=== PATIENT | female | born 1945 | race Caucasian/White ===

== ENCOUNTER → 2021-04-16 | Outpatient (CLI) | payer MEDICARE, OTHER | END | disposition home or self-care (01) | LOC: RADFLMAIN 10:44 → EEVIPCON 11:00 | PROVIDERS: ATTEND Family Medicine | DX: Z53.9 Procedure and treatment not carried out, unspecified reason (principal) ==

== ENCOUNTER 2021-04-17 10:19 | Inpatient (IN) | payer MEDICARE, OTHER ==
--- NOTE | 2021-04-17 11:14 | ED ---
General Adult HPI - General Chief complaint: Altered Mental Status Stated complaint: GI Bleed/Lethargic Time Seen by Provider: 04/17/21 10:39 Source: RN notes reviewed, Caregiver Mode of arrival: wheelchair Limitations: altered mental status, physical limitation - History of Present Illness Initial comments: Patient is a pleasant 76-year-old female presenting to the emergency department with decision support manager for drowsiness. Patient has developmental delay and functions at the age of 6-12 months. Patient provides no history. History from decision support manager. Symptoms have progressed with the past couple of weeks. Patient has had congestion and placed on antibiotics from primary care physician. Patient recently went to a different emergency Department with question of GI hemorrhage however was discharged. - Related Data Home Medications Medication Instructions Recorded Confirmed Albuterol Nebulized [Ventolin 2.5 mg INHALATION RT-Q6H PRN 04/17/21 04/17/21 Nebulized] Albuterol Sulfate [Ventolin HFA] 2 puff INHALATION RT-Q6H PRN 04/17/21 04/17/21 Cholecalciferol [Vitamin D3 (25 50 mcg PO DAILY 04/17/21 04/17/21 Mcg = 1000 Iu)] Divalproex Sodium [Depakote] 500 mg PO BID 04/17/21 04/17/21 Fluticasone Nasal [place] [Flonase 1 spr EA NOSTRIL DAILY@1400 04/17/21 04/17/21 Nasal [place]] Levothyroxine Sodium [Synthroid] 100 mcg PO DAILY 04/17/21 04/17/21 Loperamide [Imodium] 2 mg PO QID PRN 04/17/21 04/17/21 Melatonin 6 mg PO DAILY@1900 04/17/21 04/17/21 Siltussin Sa 100mg/5ml 200 - 400 mg PO Q4H PRN MDD 6 DOSES 04/17/21 04/17/21 clonazePAM [KlonoPIN] 0.5 mg PO BID 04/17/21 04/17/21 traZODone HCL 150 mg PO HS 04/17/21 04/17/21 Allergies Allergy/AdvReac Type Severity Reaction Status Date / Time donepezil Allergy Unknown Verified 04/17/21 11:35 Penicillins Allergy Rash/Hives Verified 04/17/21 11:35 Review of Systems ROS Statement: Those systems with pertinent positive or pertinent negative responses have been documented in the HPI. ROS Other: All systems not noted in ROS Statement are negative. Limitations: ROS unobtainable due to patients medical condition Constitutional: Denies: fever Respiratory: Denies: cough Gastrointestinal: Denies: vomiting Past Medical History Past Medical History: Dementia, Memory Impairment History of Any Multi-Drug Resistant Organisms: None Reported Past Surgical History: No Surgical Hx Reported Past Psychological History: No Psychological Hx Reported Smoking Status: Former smoker Past Alcohol Use History: None Reported Past Drug Use History: None Reported General Exam Limitations: altered mental status, physical limitation General appearance: alert, in no apparent distress Head exam: Present: atraumatic Eye exam: Present: normal appearance Neck exam: Present: normal inspection. Absent: tenderness, meningismus Respiratory exam: Present: normal lung sounds bilaterally Cardiovascular Exam: Present: regular rate, normal rhythm GI/Abdominal exam: Present: soft. Absent: tenderness Extremities exam: Present: pedal edema (Trace bilateral). Absent: calf tenderness Neurological exam: Present: alert, altered, other (Nonverbal. Does not follow commands.) Psychiatric exam: Present: normal affect, normal mood Skin exam: Present: normal color Course Vital Signs 04/17/21 10:23 Temperature 97.0 F L Pulse Rate 61 Respiratory 18 Rate Blood Pressure 179/100 O2 Sat by Pulse 97 Oximetry EKG Findings - EKG Comments: EKG Findings:: Size pericardial 356. For screening AV block with MO of 206. QRS 144. QT 502. QTC 44. Left axis. Right bundle branch block. No acute ST change. Medical Decision Making - Medical Decision Making Patient reevaluated. Case discussed with Dr. Muñoz, who will admit his patient with consults for Dr. Andres, pulmonary, and cardiology. - Lab Data Result diagrams: 04/17/21 11:37 04/17/21 11:37 Lab Results 04/17/21 04/17/21 04/17/21 Range/Units 11:37 11:37 11:37 WBC 2.9 L (3.8-10.6) k/uL RBC 3.84 (3.80-5.40) m/uL Hgb 12.5 (11.4-16.0) gm/dL Hct 37.7 (34.0-46.0) % MCV 98.1 (80.0-100.0) fL MCH 32.5 (25.0-35.0) pg MCHC 33.1 (31.0-37.0) g/dL RDW 15.5 (11.5-15.5) % Plt Count 110 L (150-450) k/uL MPV 12.2 Neutrophils % (Manual) 60 % Lymphocytes % (Manual) 36 % Monocytes % (Manual) 4 % Eosinophils % (Manual) 1 % Neutrophils # (Manual) 1.74 (1.3-7.7) k/uL Lymphocytes # (Manual) 1.04 (1.0-4.8) k/uL Monocytes # (Manual) 0.12 (0-1.0) k/uL Eosinophils # (Manual) 0.03 (0-0.7) k/uL Nucleated RBCs 2 H (0-0) /100 WBC Manual Slide Review Performed Large Platelets Present Macrocytosis Slight PT 9.6 (9.0-12.0) sec INR 0.9 (<1.2) APTT 23.3 (22.0-30.0) sec Sodium 137 (137-145) mmol/L Potassium 5.3 H (3.5-5.1) mmol/L Chloride 92 L (98-107) mmol/L Carbon Dioxide 38 H (22-30) mmol/L Anion Gap 7 mmol/L BUN 22 H (7-17) mg/dL Creatinine 0.59 (0.52-1.04) mg/dL Est GFR (CKD-EPI)AfAm >90 (>60 ml/min/1.73 sqM) Est GFR (CKD-EPI)NonAf 89 (>60 ml/min/1.73 sqM) Glucose 104 H (74-99) mg/dL POC Glucose (mg/dL) (75-99) mg/dL POC Glu Remote Coders ID Calcium 9.4 (8.4-10.2) mg/dL Total Bilirubin 0.1 L (0.2-1.3) mg/dL AST 34 (14-36) U/L ALT 38 H (4-34) U/L Alkaline Phosphatase 107 (38-126) U/L Troponin I (0.000-0.034) ng/mL NT-Pro-B Natriuret Pep pg/mL Total Protein 7.2 (6.3-8.2) g/dL Albumin 3.9 (3.5-5.0) g/dL TSH 2.300 (0.465-4.680) mIU/L Free T4 1.06 (0.78-2.19) ng/dL Free T3 pg/mL 3.3 (2.8-5.3) pg/ml Urine Color Urine Appearance (Clear) Urine pH (5.0-8.0) Ur Specific [place] (1.001-1.035) Urine Protein (Negative) Urine Glucose (UA) (Negative) Urine Ketones (Negative) Urine Blood (Negative) Urine Nitrite (Negative) Urine Bilirubin (Negative) Urine Urobilinogen (<2.0) mg/dL Ur Leukocyte Esterase (Negative) Urine RBC (0-5) /hpf Urine WBC (0-5) /hpf Ur Squamous Epith Cells (0-4) /hpf Urine Mucus (None) /hpf Stool Occult Blood (Negative) Urine Opiates Screen (NotDetected) Ur Oxycodone Screen (NotDetected) Urine Methadone Screen (NotDetected) Ur Propoxyphene Screen (NotDetected) Ur Barbiturates Screen (NotDetected) Valproic Acid 56.9 ug/mL U Tricyclic Antidepress (NotDetected) Ur Phencyclidine Scrn (NotDetected) Ur Amphetamines Screen (NotDetected) U Methamphetamines Scrn (NotDetected) U Benzodiazepines Scrn (NotDetected) Urine Cocaine Screen (NotDetected) U Marijuana (THC) Screen (NotDetected) 04/17/21 04/17/21 04/17/21 Range/Units 11:37 11:37 11:52 WBC (3.8-10.6) k/uL RBC (3.80-5.40) m/uL Hgb (11.4-16.0) gm/dL Hct (34.0-46.0) % MCV (80.0-100.0) fL MCH (25.0-35.0) pg MCHC (31.0-37.0) g/dL RDW (11.5-15.5) % Plt Count (150-450) k/uL MPV Neutrophils % (Manual) % Lymphocytes % (Manual) % Monocytes % (Manual) % Eosinophils % (Manual) % Neutrophils # (Manual) (1.3-7.7) k/uL Lymphocytes # (Manual) (1.0-4.8) k/uL Monocytes # (Manual) (0-1.0) k/uL Eosinophils # (Manual) (0-0.7) k/uL Nucleated RBCs (0-0) /100 WBC Manual Slide Review Large Platelets Macrocytosis PT (9.0-12.0) sec INR (<1.2) APTT (22.0-30.0) sec Sodium (137-145) mmol/L Potassium (3.5-5.1) mmol/L Chloride (98-107) mmol/L Carbon Dioxide (22-30) mmol/L Anion Gap mmol/L BUN (7-17) mg/dL Creatinine (0.52-1.04) mg/dL Est GFR (CKD-EPI)AfAm (>60 ml/min/1.73 sqM) Est GFR (CKD-EPI)NonAf (>60 ml/min/1.73 sqM) Glucose (74-99) mg/dL POC Glucose (mg/dL) 95 (75-99) mg/dL POC Glu Remote Coders ID Oliva Campoverde Calcium (8.4-10.2) mg/dL Total Bilirubin (0.2-1.3) mg/dL AST (14-36) U/L ALT (4-34) U/L Alkaline Phosphatase (38-126) U/L Troponin I 0.059 H* (0.000-0.034) ng/mL NT-Pro-B Natriuret Pep 483 pg/mL Total Protein (6.3-8.2) g/dL Albumin (3.5-5.0) g/dL TSH (0.465-4.680) mIU/L Free T4 (0.78-2.19) ng/dL Free T3 pg/mL (2.8-5.3) pg/ml Urine Color Urine Appearance (Clear) Urine pH (5.0-8.0) Ur Specific [place] (1.001-1.035) Urine Protein (Negative) Urine Glucose (UA) (Negative) Urine Ketones (Negative) Urine Blood (Negative) Urine Nitrite (Negative) Urine Bilirubin (Negative) Urine Urobilinogen (<2.0) mg/dL Ur Leukocyte Esterase (Negative) Urine RBC (0-5) /hpf Urine WBC (0-5) /hpf Ur Squamous Epith Cells (0-4) /hpf Urine Mucus (None) /hpf Stool Occult Blood (Negative) Urine Opiates Screen (NotDetected) Ur Oxycodone Screen (NotDetected) Urine Methadone Screen (NotDetected) Ur Propoxyphene Screen (NotDetected) Ur Barbiturates Screen (NotDetected) Valproic Acid ug/mL U Tricyclic Antidepress (NotDetected) Ur Phencyclidine Scrn (NotDetected) Ur Amphetamines Screen (NotDetected) U Methamphetamines Scrn (NotDetected) U Benzodiazepines Scrn (NotDetected) Urine Cocaine Screen (NotDetected) U Marijuana (THC) Screen (NotDetected) 04/17/21 04/17/21 Range/Units 12:26 12:26 WBC (3.8-10.6) k/uL RBC (3.80-5.40) m/uL Hgb (11.4-16.0) gm/dL Hct (34.0-46.0) % MCV (80.0-100.0) fL MCH (25.0-35.0) pg MCHC (31.0-37.0) g/dL RDW (11.5-15.5) % Plt Count (150-450) k/uL MPV Neutrophils % (Manual) % Lymphocytes % (Manual) % Monocytes % (Manual) % Eosinophils % (Manual) % Neutrophils # (Manual) (1.3-7.7) k/uL Lymphocytes # (Manual) (1.0-4.8) k/uL Monocytes # (Manual) (0-1.0) k/uL Eosinophils # (Manual) (0-0.7) k/uL Nucleated RBCs (0-0) /100 WBC Manual Slide Review Large Platelets Macrocytosis PT (9.0-12.0) sec INR (<1.2) APTT (22.0-30.0) sec Sodium (137-145) mmol/L Potassium (3.5-5.1) mmol/L Chloride (98-107) mmol/L Carbon Dioxide (22-30) mmol/L Anion Gap mmol/L BUN (7-17) mg/dL Creatinine (0.52-1.04) mg/dL Est GFR (CKD-EPI)AfAm (>60 ml/min/1.73 sqM) Est GFR (CKD-EPI)NonAf (>60 ml/min/1.73 sqM) Glucose (74-99) mg/dL POC Glucose (mg/dL) (75-99) mg/dL POC Glu Remote Coders ID Calcium (8.4-10.2) mg/dL Total Bilirubin (0.2-1.3) mg/dL AST (14-36) U/L ALT (4-34) U/L Alkaline Phosphatase (38-126) U/L Troponin I (0.000-0.034) ng/mL NT-Pro-B Natriuret Pep pg/mL Total Protein (6.3-8.2) g/dL Albumin (3.5-5.0) g/dL TSH (0.465-4.680) mIU/L Free T4 (0.78-2.19) ng/dL Free T3 pg/mL (2.8-5.3) pg/ml Urine Color Yellow Urine Appearance Clear (Clear) Urine pH 6.0 (5.0-8.0) Ur Specific [place] 1.014 (1.001-1.035) Urine Protein Negative (Negative) Urine Glucose (UA) Negative (Negative) Urine Ketones Negative (Negative) Urine Blood Trace H (Negative) Urine Nitrite Negative (Negative) Urine Bilirubin Negative (Negative) Urine Urobilinogen <2.0 (<2.0) mg/dL Ur Leukocyte Esterase Negative (Negative) Urine RBC 4 (0-5) /hpf Urine WBC 2 (0-5) /hpf Ur Squamous Epith Cells <1 (0-4) /hpf Urine Mucus Rare H (None) /hpf Stool Occult Blood Negative (Negative) Urine Opiates Screen Not Detected (NotDetected) Ur Oxycodone Screen Not Detected (NotDetected) Urine Methadone Screen Not Detected (NotDetected) Ur Propoxyphene Screen Not Detected (NotDetected) Ur Barbiturates Screen Not Detected (NotDetected) Valproic Acid ug/mL U Tricyclic Antidepress Not Detected (NotDetected) Ur Phencyclidine Scrn Not Detected (NotDetected) Ur Amphetamines Screen Not Detected (NotDetected) U Methamphetamines Scrn Not Detected (NotDetected) U Benzodiazepines Scrn Not Detected (NotDetected) Urine Cocaine Screen Not Detected (NotDetected) U Marijuana (THC) Screen Not Detected (NotDetected) - Radiology Data Radiology results: report reviewed (Computed tomography scan shows chronic changes, correlate for normal pressure hydrocephalus), image reviewed (Chest x- ray shows suggestion of right infrahilar infiltrate.) Disposition Clinical Impression: Pneumonia Disposition: ADMITTED IP TO THIS HOSP Is patient prescribed a controlled substance at d/c from ED?: No Referrals: Patricio Muñoz MD [Primary Care Provider] - 1-2 days Decision Time: 13:42
[2021-04-17 11:54] LABS: Glucose,Whole Blood 95 mg/dL (75-99)
[2021-04-17 12:01] LABS: HCT 37.7 % (34.0-46.0); HGB 12.5 gm/dL (11.4-16.0); MCH 32.5 pg (25.0-35.0); MCHC 33.1 g/dL (31.0-37.0); MCV 98.1 fL (80.0-100.0); Macrocytosis Slight; Mean Platelet Volume 12.2; Platelet Count 110 k/uL (150-450); RBC 3.84 m/uL (3.80-5.40); RDW 15.5 % (11.5-15.5)
[2021-04-17 12:11] LABS: ALT 38 U/L (4-34); AST 34 U/L (14-36); African American GFR (CKD) >90 (>60 ml/min/1.73 sqM); Albumin 3.9 g/dL (3.5-5.0); Alkaline Phosphatase 107 U/L (38-126); Anion Gap 7 mmol/L; Blood Urea Nitrogen 22 mg/dL (7-17); Calcium 9.4 mg/dL (8.4-10.2); Carbon Dioxide 38 mmol/L (22-30); Chloride 92 mmol/L (98-107); Glucose 104 mg/dL (74-99); Non-African American GFR(CKD) 89 (>60 ml/min/1.73 sqM); Potassium 5.3 mmol/L (3.5-5.1); Sodium 137 mmol/L (137-145); Total Bilirubin 0.1 mg/dL (0.2-1.3); Total Protein 7.2 g/dL (6.3-8.2)
[2021-04-17 12:16] LABS: Valproic Acid (Depakene) 56.9 ug/mL
[2021-04-17 12:23] LABS: INR 0.9 (<1.2); Partial Thromboplastin Time 23.3 sec (22.0-30.0); Prothrombin Time 9.6 sec (9.0-12.0)
[2021-04-17 12:27] LABS: T4, Free (Free Thyroxine) 1.06 ng/dL (0.78-2.19)
--- NOTE | 2021-04-17 12:32 | CT ---
EXAMINATION TYPE: CT brain wo con DATE OF EXAM: 04/17/2021 COMPARISON: None INDICATION: AMS DLP: 1113.4 mGycm, Automated exposure control for dose reduction was used. CONTRAST: None CT of the brain is performed utilizing 3 mm thick sections through the posterior fossa and 3 mm thick sections through the remaining calvarium. Study is performed within 24 hours of arrival to the hosp ital. No abnormal hyperdensity is present to suggest an acute intracranial hemorrhage. No mass lesion is evident. No acute infarcts are evident. Minimal periventricular white matter hypodensity is present, likely on the basis of chronic white matter ischemic change. Ventricles are prominent for the patient age. Some mild prominence of the temporal horns may be prese nt. Consider normal pressure hydrocephalus. Sulci are less prominent lobulation to the ventricles.. Mastoid air cells appear clear. Some scattered mucosal thickening in ethmoid air cells. Remaining par anasal sinuses are clear. Right septal deviation is noted. IMPRESSIONS: 1. Clinical consideration for normal pressure hydrocephalus is recommended. 2. Mild chronic appearing periventricular white matter ischemic type changes.
[2021-04-17 13:00] LABS: Eosinophils # (M) 0.03 k/uL (0-0.7); Lymphocytes # (M) 1.04 k/uL (1.0-4.8); Monocytes # (M) 0.12 k/uL (0-1.0); Neutrophils # (M) 1.74 k/uL (1.3-7.7); Neutrophils % (M) 60 %; Nucleated Red Blood Cells 2 /100 WBC (0-0); Total Cells Counted 200; WBC 2.9 k/uL (3.8-10.6)
[2021-04-17 13:04] LABS: Large Platelets Present
--- NOTE | 2021-04-17 13:13 | XR ---
EXAMINATION TYPE: XR chest 1V portable DATE OF EXAM: 04/17/2021 COMPARISON: 01/27/2013 INDICATION: Altered mental status TECHNIQUE: Single frontal view of the chest is obtained. FINDINGS: The heart size is enlarged. The pulmonary vasculature is normal. Mild right infrahilar infiltrate may be present. Lungs otherwise appear clear. There may be some foca l eventration of the right diaphragm. IMPRESSION: 1. Suggestion of a right infrahilar infiltrate. Correlate for atelectasis. 2. Mild cardiomegaly
[2021-04-17 13:18] LABS: Appearance,Urine Clear (Clear); Bilirubin,Urine Negative (Negative); Blood,Urine Trace (Negative); Color,Urine Yellow; Glucose,Urine (UA) Negative (Negative); Ketones,Urine Negative (Negative); Leukocyte Esterase,Urine Negative (Negative); Mucus,Urine Rare /hpf; Nitrite,Urine Negative (Negative); Protein,Urine Negative (Negative); RBC,Urine 4 /hpf (0-5); Specific Gravity,Urine 1.014 (1.001-1.035); Squamous Epithelial Cell,Urine <1 /hpf (0-4); Urobilinogen,Urine <2.0 mg/dL (<2.0); WBC,Urine 2 /hpf (0-5)
[2021-04-17 13:25] LABS: Amphetamine Screen,Urine Not Detected (NotDetected); Barbiturate Screen,Urine Not Detected (NotDetected); Benzodiazepines Screen,Urine Not Detected (NotDetected); Cocaine Screen,Urine Not Detected (NotDetected); Methadone Screen, Urine Not Detected (NotDetected); Opiate Screen,Urine Not Detected (NotDetected); Oxycodone Screen, Urine Not Detected (NotDetected); Phencyclidine Screen,Urine Not Detected (NotDetected); Tricyclic Antidepressant,Urine Not Detected (NotDetected); Urn Cannabinoid Scrn Not Detected (NotDetected)
--- NOTE | 2021-04-17 13:26 | P.GSHP ---
History of Present Illness H&P Date: 04/17/21 Patient seen and evaluated. Initial trauma 1 activation for suspicion of depressed skull fracture and ultimately mental status. Computed tomography scan negative for acute skull fracture. Patient came in hypertensive. No hypotension. Findings of normal pressure hydrocephalus. 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 Recommend transfer to facility with neurosurgery back up. Case discussed with Dr. Dominguez. Case downgraded to level II without presence of depressed skull fracture or hypotension Past Medical History Past Medical History: Dementia, Memory Impairment History of Any Multi-Drug Resistant Organisms: None Reported Past Surgical History: No Surgical Hx Reported Past Psychological History: No Psychological Hx Reported Smoking Status: Former smoker Past Alcohol Use History: None Reported Past Drug Use History: None Reported Medications and Allergies Home Medications Medication Instructions Recorded Confirmed Type Albuterol Nebulized [Ventolin 2.5 mg INHALATION RT-Q6H PRN 04/17/21 04/17/21 History Nebulized] Albuterol Sulfate [Ventolin HFA] 2 puff INHALATION RT-Q6H PRN 04/17/21 04/17/21 History Cholecalciferol [Vitamin D3 (25 50 mcg PO DAILY 04/17/21 04/17/21 History Mcg = 1000 Iu)] Divalproex Sodium [Depakote] 500 mg PO BID 04/17/21 04/17/21 History Fluticasone Nasal [place] [Flonase 1 spr EA NOSTRIL DAILY@1400 04/17/21 04/17/21 H istory Nasal [place]] Levothyroxine Sodium [Synthroid] 100 mcg PO DAILY 04/17/21 04/17/21 History Loperamide [Imodium] 2 mg PO QID PRN 04/17/21 04/17/21 History Melatonin 6 mg PO DAILY@1900 04/17/21 04/17/21 History Siltussin Sa 100mg/5ml 200 - 400 mg PO Q4H PRN MDD 6 DOSES 04/17/21 04/17/21 History clonazePAM [KlonoPIN] 0.5 mg PO BID 04/17/21 04/17/21 History traZODone HCL 150 mg PO HS 04/17/21 04/17/21 History Allergies Allergy/AdvReac Type Severity Reaction Status Date / Time donepezil Allergy Unknown Verified 04/17/21 11:35 Penicillins Allergy Rash/Hives Verified 04/17/21 11:35 Surgical - Exam Vital Signs Temp Pulse Resp BP Pulse Ox 97.0 F L 61 18 179/100 97 04/17/21 10:23 04/17/21 10:23 04/17/21 10:23 04/17/21 10:23 04/17/21 10:23 Results - Labs 04/17/21 11:37 04/17/21 11:37 Abnormal Lab Results - Last 24 Hours (Table) 04/17/21 04/17/21 04/17/21 Range/Units 11:37 11:37 11:37 WBC 2.9 L (3.8-10.6) k/uL Plt Count 110 L (150-450) k/uL Nucleated RBCs 2 H (0-0) /100 WBC Potassium 5.3 H (3.5-5.1) mmol/L Chloride 92 L (98-107) mmol/L Carbon Dioxide 38 H (22-30) mmol/L BUN 22 H (7-17) mg/dL Glucose 104 H (74-99) mg/dL Total Bilirubin 0.1 L (0.2-1.3) mg/dL ALT 38 H (4-34) U/L Troponin I 0.059 H* (0.000-0.034) ng/mL Urine Blood (Negative) Urine Mucus (None) /hpf 04/17/21 Range/Units 12:26 WBC (3.8-10.6) k/uL Plt Count (150-450) k/uL Nucleated RBCs (0-0) /100 WBC Potassium (3.5-5.1) mmol/L Chloride (98-107) mmol/L Carbon Dioxide (22-30) mmol/L BUN (7-17) mg/dL Glucose (74-99) mg/dL Total Bilirubin (0.2-1.3) mg/dL ALT (4-34) U/L Troponin I (0.000-0.034) ng/mL Urine Blood Trace H (Negative) Urine Mucus Rare H (None) /hpf Diabetes panel 04/17/21 Range/Units 11:37 Sodium 137 (137-145) mmol/L Potassium 5.3 H (3.5-5.1) mmol/L Chloride 92 L (98-107) mmol/L Carbon Dioxide 38 H (22-30) mmol/L BUN 22 H (7-17) mg/dL Creatinine 0.59 (0.52-1.04) mg/dL Glucose 104 H (74-99) mg/dL Calcium 9.4 (8.4-10.2) mg/dL AST 34 (14-36) U/L ALT 38 H (4-34) U/L Alkaline Phosphatase 107 (38-126) U/L Total Protein 7.2 (6.3-8.2) g/dL Albumin 3.9 (3.5-5.0) g/dL Thyroid panel 04/17/21 Range/Units 11:37 TSH 2.300 (0.465-4.680) mIU/L Calcium panel 04/17/21 Range/Units 11:37 Calcium 9.4 (8.4-10.2) mg/dL Albumin 3.9 (3.5-5.0) g/dL Pituitary panel 04/17/21 Range/Units 11:37 Sodium 137 (137-145) mmol/L Potassium 5.3 H (3.5-5.1) mmol/L Chloride 92 L (98-107) mmol/L Carbon Dioxide 38 H (22-30) mmol/L BUN 22 H (7-17) mg/dL Creatinine 0.59 (0.52-1.04) mg/dL Glucose 104 H (74-99) mg/dL Calcium 9.4 (8.4-10.2) mg/dL TSH 2.300 (0.465-4.680) mIU/L Adrenal panel 04/17/21 Range/Units 11:37 Sodium 137 (137-145) mmol/L Potassium 5.3 H (3.5-5.1) mmol/L Chloride 92 L (98-107) mmol/L Carbon Dioxide 38 H (22-30) mmol/L BUN 22 H (7-17) mg/dL Creatinine 0.59 (0.52-1.04) mg/dL Glucose 104 H (74-99) mg/dL Calcium 9.4 (8.4-10.2) mg/dL Total Bilirubin 0.1 L (0.2-1.3) mg/dL AST 34 (14-36) U/L ALT 38 H (4-34) U/L Alkaline Phosphatase 107 (38-126) U/L Total Protein 7.2 (6.3-8.2) g/dL Albumin 3.9 (3.5-5.0) g/dL
[2021-04-17] MEDS ORDERED: PNEUMONIA PROTOCOL UTILIZED 1 EACH MISC PO PRN (13:43)
[2021-04-17] MEDS ORDERED: LEVOFLOXACIN 750MG-D5W PMX 750 MG in DEXTROSE/WATER 1 150ML.BAG IVPB STA (13:43)
[2021-04-17] MEDS ORDERED: NALOXONE 0.4 MG/ML 1 ML VIAL IV PRN (13:45)
--- NOTE | 2021-04-17 14:55 | P.CRDCN ---
History of Present Illness History of present illness: HISTORY OF PRESENTING ILLNESS This is a pleasant 76-year-old female past medical history significant for developmental delay, nonverbal. Unknown medical history. Patient is unable to give a medical history. Patient is non-verbal. Called caregiver, Shima at [phone], no answer at this time. Unknown if patient sees a cumulative effects analyst. We have been asked to see in consultation for cardiac evaluation. Patient is seen and examined in the emergency department. She is awake, nonverbal. Unable to answer questions appropriately. Per nursing, patient was brought to the hospital for drowsiness, failure to thrive. EKG reveals sinus bradycardia, heart rate 56, right bundle-branch block, nonspecific STT wave abnormalities.Telemetry at bedside indicate sinus mechanism HR 50s. Brain CT revealed mild chronic appearing periventricular white matter ischemic type changes.Chest xray mild right infrahilar infiltrate may be present. Lungs otherwise appear clear. Mild cardiomegaly. Laboratory reviewed, WBC 2.9, hemoglobin 12.5, platelets 110, sodium 137, potassium 5.3, BUN 22, serum creatinine 0.5, troponin 0.05, proBNP 483, TSH within normal limits, urine toxicology negative. Current home medications include trazodone, melatonin, Synthroid, Depakote, Klonopin. REVIEW OF SYSTEMS At the time of my exam: Unable to do accurate review of systems due to patient's current mental status. PHYSICAL EXAMINATION Blood pressure 179/100 heart rate 61 afebrile and maintaining oxygen saturation 97% on room air CONSTITUTIONAL: No apparent distress. HEENT: Head is normocephalic. Sclerae anicteric. Mucous membranes of the mouth are moist. No JVD. CHEST EXAMINATION: Lungs are clear to auscultation. HEART EXAMINATION: Regular rate and rhythm. S1, S2 heard. ABDOMEN: Soft, nontender. Positive bowel sounds. EXTREMITIES: 2+ peripheral pulses, trace bilateral lower extremity edema. NEUROLOGIC EXAMINATION: Patient is awake, nonverbal ASSESSMENT Elevated troponin, mildly elevated at 0.05. No EKG changes indicative of ischemia. Patient is not able to describe any symptoms History of developmental delay, nonverbal Drowsiness PLAN We will obtain an echocardiogram. Recommend treating the patient medically at this time. Further recommendations based on clinical course Nurse Practitioner note has been reviewed, I agree with a documented findings and plan of care. Patient was seen and examined. Past Medical History Past Medical History: Dementia, Memory Impairment History of Any Multi-Drug Resistant Organisms: None Reported Past Surgical History: No Surgical Hx Reported Past Psychological History: No Psychological Hx Reported Smoking Status: Former smoker Past Alcohol Use History: None Reported Past Drug Use History: None Reported Medications and Allergies Home Medications Medication Instructions Recorded Confirmed Type Albuterol Nebulized [Ventolin 2.5 mg INHALATION RT-Q6H PRN 04/17/21 04/17/21 History Nebulized] Albuterol Sulfate [Ventolin HFA] 2 puff INHALATION RT-Q6H PRN 04/17/21 04/17/21 History Cholecalciferol [Vitamin D3 (25 50 mcg PO DAILY 04/17/21 04/17/21 History Mcg = 1000 Iu)] Divalproex Sodium [Depakote] 500 mg PO BID 04/17/21 04/17/21 History Fluticasone Nasal [place] [Flonase 1 spr EA NOSTRIL DAILY@1400 04/17/21 04/17/21 History Nasal [place]] Levothyroxine Sodium [Synthroid] 100 mcg PO DAILY 04/17/21 04/17/21 History Loperamide [Imodium] 2 mg PO QID PRN 04/17/21 04/17/21 History Melatonin 6 mg PO DAILY@1900 04/17/21 04/17/21 History Siltussin Sa 100mg/5ml 200 - 400 mg PO Q4H PRN MDD 6 DOSES 04/17/21 04/17/21 History clonazePAM [KlonoPIN] 0.5 mg PO BID 04/17/21 04/17/21 History traZODone HCL 150 mg PO HS 04/17/21 04/17/21 History Allergies Allergy/AdvReac Type Severity Reaction Status Date / Time donepezil Allergy Unknown Verified 04/17/21 11:35 Penicillins Allergy Rash/Hives Verified 04/17/21 11:35 Physical Exam Vitals: Vital Signs Temp Pulse Resp BP Pulse Ox 04/17/21 10:23 97.0 F L 61 18 179/100 97 Intake and Output 04/16/21 04/17/21 04/17/21 22:59 06:59 14:59 Other: Weight 70.307 kg Results 04/17/21 11:37 04/17/21 11:37 Cardiac Enzymes 04/17/21 04/17/21 Range/Units 11:37 11:37 AST 34 (14-36) U/L Troponin I 0.059 H* (0.000-0.034) ng/mL Coagulation 04/17/21 Range/Units 11:37 PT 9.6 (9.0-12.0) sec APTT 23.3 (22.0-30.0) sec CBC 04/17/21 Range/Units 11:37 WBC 2.9 L (3.8-10.6) k/uL RBC 3.84 (3.80-5.40) m/uL Hgb 12.5 (11.4-16.0) gm/dL Hct 37.7 (34.0-46.0) % Plt Count 110 L (150-450) k/uL Comprehensive Metabolic Panel 04/17/21 Range/Units 11:37 Sodium 137 (137-145) mmol/L Potassium 5.3 H (3.5-5.1) mmol/L Chloride 92 L (98-107) mmol/L Carbon Dioxide 38 H (22-30) mmol/L BUN 22 H (7-17) mg/dL Creatinine 0.59 (0.52-1.04) mg/dL Glucose 104 H (74-99) mg/dL Calcium 9.4 (8.4-10.2) mg/dL AST 34 (14-36) U/L ALT 38 H (4-34) U/L Alkaline Phosphatase 107 (38-126) U/L Total Protein 7.2 (6.3-8.2) g/dL Albumin 3.9 (3.5-5.0) g/dL Current Medications Generic Name Dose Route Start Last Admin Trade Name Freq PRN Reason Stop Dose Admin Sodium Chloride 1,000 mls @ 100 mls/hr 04/17/21 13:45 Saline 0.9% IV .Q10H UNIQUE Levofloxacin 750 mg/ IV 150 mls @ 100 mls/hr 04/17/21 13:43 Solution IVPB 04/17/21 15:12 ONCE STA Levofloxacin 750 mg 04/18/21 12:00 Levofloxacin 750 Mg Tab PO 04/21/21 12:01 DAILY@1200 UNIQUE Miscellaneous Information 1 each 04/17/21 13:43 Pneumonia Protocol Utilized 1 Each Misc PO ONCE PRN Per Protocol Naloxone HCl 0.2 mg 04/17/21 13:45 Naloxone 0.4 Mg/Ml 1 Ml Vial IV Q2M PRN Opioid Reversal Intake and Output 04/16/21 04/17/21 04/17/21 22:59 06:59 14:59 Other: Weight 70.307 kg Patient Weight 04/18/21 06:59 Weight 70.307 kg 04/17/21 11:37 04/17/21 11:37
[2021-04-17] MEDS: SODIUM CHLORIDE 0.9% 1,000 ML IV SCH (15:16)
--- NOTE | 2021-04-17 17:10 | ECHOF ---
Referral Reason:LV function MEASUREMENTS -------- HEIGHT: 160.0 cm WEIGHT: 70.3 kg BP: 179/100 RVIDd: 2.9 cm (< 3.3) IVSd: 1.3 cm (0.6 - 1.1) LVIDd: 4.0 cm (3.9 - 5.3) LVPWd: 1.3 cm (0.6 - 1.1) IVSs: 1.9 cm LVIDs: 1.6 cm LVPWs: 1.6 cm LAESV Index (A-L): 47.04 ml/m Ao Diam: 3.1 cm (2.0 - 3.7) AV Cusp: 2.0 cm (1.5 - 2.6) LA Diam: 4.2 cm (2.7 - 3.8) MV EXCURSION: 16.399 mm (> 18.000) MV EF SLOPE: 83 mm/s (70 - 150) EPSS: 0.4 cm MV E Dontae: 1.06 m/s MV DecT: 189 ms MV A Dontae: 0.65 m/s MV E/A Ratio: 1.63 RAP: 5.00 mmHg RVSP: 47.00 mmHg FINDINGS -------- Sinus rhythm. This was a technically adequate study. The left ventricular size is normal. There is mild concentric left ventricular hypertrophy. Overa ll left ventricular systolic function is normal with, an EF between 55 - 60 %. The diastolic fillin g pattern is normal for the age of the patient 11.49. The right ventricle is normal in size. LA is severely dilated >40 ml/m2 The right atrial size is normal. Interatrial and interventricular septum intact. There is no evidence of aortic regurgitation. There is no evidence of aortic stenosis. [id number] mitral regurgitation is present. Moderate tricuspid regurgitation present. There is moderate pulmonary hypertension. The right ana tricular systolic pressure, as measured by Doppler, is 47.00mmHg. Trace/mild (physiologic) pulmonic regurgitation. The aortic root size is normal. IVC Not well visulized. There is no pericardial effusion. CONCLUSIONS -------- 1. The left ventricular size is normal. 2. There is mild concentric left ventricular hypertrophy. 3. Overall left ventricular systolic function is normal with, an EF between 55 - 60 %. 4. LA is severely dilated >40 ml/m2 5. [id number] mitral regurgitation is present. 6. Moderate tricuspid regurgitation present. 7. There is moderate pulmonary hypertension. 8. The right ventricular systolic pressure, as measured by Doppler, is 47.00mmHg. 9. Trace/mild (physiologic) pulmonic regurgitation. TRIM DIE MAKER: Trinity Handley RDCS
[2021-04-17] MEDS ORDERED: ALBUTEROL NEBULIZED 2.5 MG/3 ML INHALATION PRN (21:33)
[2021-04-17 22:39] LABS: Appearance,Urine Clear (Clear); Bacteria,Urine Rare /hpf; Bilirubin,Urine Negative (Negative); Blood,Urine Trace (Negative); Color,Urine Yellow; Glucose,Urine (UA) Negative (Negative); Hyaline Casts,Urine 5 /lpf (0-2); Ketones,Urine Negative (Negative); Leukocyte Esterase,Urine Negative (Negative); Mucus,Urine Rare /hpf; Nitrite,Urine Negative (Negative); PH, Urine 6.5 (5.0-8.0); Protein,Urine Negative (Negative); RBC,Urine 9 /hpf (0-5); Specific Gravity,Urine 1.014 (1.001-1.035); Urobilinogen,Urine <2.0 mg/dL (<2.0); WBC,Urine 2 /hpf (0-5)
--- NOTE | 2021-04-17 23:18 | P.CONS ---
History of Present Illness - Reason for Consult Consult date: 04/17/21 Pneumonia Requesting physician: Patricio Muñoz - Chief Complaint weakness and congested cough x days - History of Present Illness History of present illness : Patient is a 76-year-old female with a past medical history significant for developmental delay who was brought into the ER by environmental adviser with concern for congested cough and increasing shortness of breath and this patient apparently has been seen by the primary care physician on presenting has been treated with an antibiotic without any improvement also with the decreased oral intake and mental status changes on presentation to the hospital patient was afebrile he was mildly hypoxic requiring supplemental oxygen did have elevated troponin urine has been negative white count was 2.9 kidney function was normal bashir PCR has been negative patient did have a chest x-ray with evidence of right infrahilar infiltrate correlate for atelectasis versus pneumonia patient was started on Levaquin because of her penicillin allergy and infectious disease was consulted for further management of antib iotic therapy most information has been obtained from review the chart review nursing staff as the patient herself was not provide any history Review of system: Positive point has been mentioned in HPI complete review could not be obtained because of underlying mental status. Past medical history : Reviewed, documented below Past surgical history : Reviewed, documented below Social history: Reviewed, documented below Medications: Reviewed, as documented below EXAMINATION: Vital sigans= Reviewed and documented below GENERAL DESCRIPTION: Elderly female lying in bed, no distress. No tachypnea or accessory muscle of respiration use. HEENT: Shows Pallor , no scleral icterus. Oral mucous membrane is dry. NECK: Trachea central, no thyromegaly. LUNGS: Unlabored breathing. Coarse breath sounds bilaterally. No wheeze or crackle. HEART: S1, S2, regular rate and rhythm. ABDOMEN: Soft, no tenderness , guarding or rigidity EXTREMITIES: No edema of feet. SKIN: No rash, no masses palpable. NEUROLOGICAL: The patient is lethargic nonverbal orientation could not be determined LABS AND RADIOLOGY: Reviewed results see below Assessment :1- Patient has been brought to the hospital with mental status changes lethargy decreased oral intake and this patient did have a congested cough with evidence of right infrahilar infiltrate concerning for possible aspiration pneumonia failing outpatient oral antibiotic therapy 2-patient with a penicillin allergy that would limit the number of antibiotics safe to use Plan: 1-discontinue Levaquin 2-we will try to obtain a sputum for Gram stain culture CRP and procalcitonin level 3-we will add Rocephin 1 g daily along with the clindamycin We will follow on clinical condition and cultures to further adjust medication if needed Thank you for this consultation we will follow the patient along with you Past Medical History Past Medical History: Dementia, Memory Impairment History of Any Multi-Drug Resistant Organisms: None Reported Past Surgical History: No Surgical Hx Reported Past Psychological History: No Psychological Hx Reported Smoking Status: Former smoker Past Alcohol Use History: None Reported Past Drug Use History: None Reported Medications and Allergies Home Medications Medication Instructions Recorded Confirmed Type Albuterol Nebulized [Ventolin 2.5 mg INHALATION RT-Q6H PRN 04/17/21 04/17/21 History Nebulized] Albuterol Sulfate [Ventolin HFA] 2 puff INHALATION RT-Q6H PRN 04/17/21 04/17/21 History Cholecalciferol [Vitamin D3 (25 50 mcg PO DAILY 04/17/21 04/17/21 History Mcg = 1000 Iu)] Divalproex Sodium [Depakote] 500 mg PO BID 04/17/21 04/17/21 History Fluticasone Nasal [place] [Flonase 1 spr EA NOSTRIL DAILY@1400 04/17/21 04/17/21 History Nasal [place]] Levothyroxine Sodium [Synthroid] 100 mcg PO DAILY 04/17/21 04/17/21 History Loperamide [Imodium] 2 mg PO QID PRN 04/17/21 04/17/21 History Melatonin 6 mg PO DAILY@1900 04/17/21 04/17/21 History Siltussin Sa 100mg/5ml 200 - 400 mg PO Q4H PRN MDD 6 DOSES 04/17/21 04/17/21 History clonazePAM [KlonoPIN] 0.5 mg PO BID 04/17/21 04/17/21 History traZODone HCL 150 mg PO HS 04/17/21 04/17/21 History Allergies Allergy/AdvReac Type Severity Reaction Status Date / Time donepezil Allergy Unknown Verified 04/17/21 11:35 Penicillins Allergy Rash/Hives Verified 04/17/21 11:35 Physical Exam Vitals: Vital Signs Temp Pulse Resp BP Pulse Ox 04/17/21 10:23 97.0 F L 61 18 179/100 97 Intake and Output 04/17/21 04/17/21 04/17/21 06:59 14:59 22:59 Other: Weight 70.307 kg Results CBC & Chem 7: 04/17/21 11:37 04/17/21 11:37 Labs: Abnormal Lab Results - Last 24 Hours (Table) 04/17/21 04/17/21 04/17/21 Range/Units 11:37 11:37 11:37 WBC 2.9 L (3.8-10.6) k/uL Plt Count 110 L (150-450) k/uL Nucleated RBCs 2 H (0-0) /100 WBC Potassium 5.3 H (3.5-5.1) mmol/L Chloride 92 L (98-107) mmol/L Carbon Dioxide 38 H (22-30) mmol/L BUN 22 H (7-17) mg/dL Glucose 104 H (74-99) mg/dL Total Bilirubin 0.1 L (0.2-1.3) mg/dL ALT 38 H (4-34) U/L Troponin I 0.059 H* (0.000-0.034) ng/mL Urine Blood (Negative) Urine Mucus (None) /hpf 04/17/21 04/17/21 Range/Units 12:26 16:25 WBC (3.8-10.6) k/uL Plt Count (150-450) k/uL Nucleated RBCs (0-0) /100 WBC Potassium (3.5-5.1) mmol/L Chloride (98-107) mmol/L Carbon Dioxide (22-30) mmol/L BUN (7-17) mg/dL Glucose (74-99) mg/dL Total Bilirubin (0.2-1.3) mg/dL ALT (4-34) U/L Troponin I 0.059 H* (0.000-0.034) ng/mL Urine Blood Trace H (Negative) Urine Mucus Rare H (None) /hpf
[2021-04-18] MEDS: CLINDAMYCIN 600 MG in DEXTROSE 5% IN WATER 50 ML IVPB SCH ×8 (00:14→23:15)
[2021-04-18] MEDS: SODIUM CHLORIDE 0.9% 1,000 ML IV SCH ×2 (05:00→08:25)
--- NOTE | 2021-04-18 08:13 | XR ---
EXAMINATION TYPE: XR chest 1V portable DATE OF EXAM: 04/18/2021 CLINICAL HISTORY: Difficulty breathing hand pneumonia progress study. TECHNIQUE: Single AP portable upright view of the chest is obtained. COMPARISON: Chest x-ray from one day earlier FINDINGS: Stable mild cardiomegaly. Persistent bibasilar opacities with new silhouetting of the left hemidiaphragm. Upper lungs remain clear. Advanced degenerative changes left greater than right gleno humeral joints noted. IMPRESSION: Mild Cardiomegaly with Small to tiny left pleural effusion and left greater than right bi basilar acute infiltrate and/or atelectasis. Findings more prominent or worse from one day earlier.
--- NOTE | 2021-04-18 09:27 | P.PN ---
Subjective This is a pleasant 76-year-old female past medical history significant for developmental delay, nonverbal. Unknown medical history. Patient is unable to give a medical history. Patient is non-verbal. Unknown if patient sees a telecom analyst. We have been asked to see in consultation for cardiac evaluation, patient with elevated troponin. Patient is more awake this morning. nonverbal. Unable to answer questions appropriately. Blood pressure 120/95, heart rate 81, afebrile, oxygen saturation is 94% on 4 L nasal cannula. Laboratory data reviewed troponin 0.053. covid-19 pcr negative. Echocardiogram revealed an EF of 5560 percent, LA severely dilated, moderate to severe mitral regurgitation, moderate pulmonary hypertension with RVSP of 47 mmHg. PHYSICAL EXAMINATION CONSTITUTIONAL: No apparent distress. HEENT: Neck Supple. No JVD. CHEST EXAMINATION: Lungs are rhonci bilaterally to auscultation. HEART EXAMINATION: Regular rate and rhythm. S1, S2 heard. Systolic murmur at ape x ABDOMEN: Soft, nontender. Positive bowel sounds. EXTREMITIES: 2+ peripheral pulses, trace bilateral upper extremity edema. NEUROLOGIC EXAMINATION: Patient is awake, nonverbal ASSESSMENT Elevated troponin, mildly elevated at 0.05 x 3. No EKG changes indicative of ischemia. Patient is not able to describe any symptoms History of developmental delay, nonverbal Drowsiness PLAN Start aspirin 81mg daily No further cardiac testing or changes at this time. We will follow the patient as needed. Please reach out with any further questions or concerns. Nurse Practitioner note has been reviewed, I agree with a documented findings and plan of care. Patient was seen and examined. Objective - Vital Signs Vital signs: Vital Signs Temp 99.2 F 04/18/21 08:00 Pulse 81 04/18/21 08:00 Resp 20 04/18/21 08:00 BP 120/95 04/18/21 08:00 Pulse Ox 94 L 04/18/21 08:00 Intake & Output 04/17/21 04/18/21 04/18/21 18:59 06:59 18:59 Output Total 100 Balance -100 Weight 70.307 kg 70 kg Output: Urine 100 Other: Voiding Method Indwelling Catheter Indwelling Catheter # Voids 1 - Labs CBC & Chem 7: 04/17/21 11:37 04/17/21 11:37 Labs: Abnormal Lab Results - Last 24 Hours (Table) 04/17/21 04/17/21 04/17/21 Range/Units 11:37 11:37 11:37 WBC 2.9 L (3.8-10.6) k/uL Plt Count 110 L (150-450) k/uL Nucleated RBCs 2 H (0-0) /100 WBC Potassium 5.3 H (3.5-5.1) mmol/L Chloride 92 L (98-107) mmol/L Carbon Dioxide 38 H (22-30) mmol/L BUN 22 H (7-17) mg/dL Glucose 104 H (74-99) mg/dL Total Bilirubin 0.1 L (0.2-1.3) mg/dL ALT 38 H (4-34) U/L Troponin I 0.059 H* (0.000-0.034) ng/mL Urine Blood (Negative) Urine RBC (0-5) /hpf Urine Bacteria (None) /hpf Hyaline Casts (0-2) /lpf Urine Mucus (None) /hpf 04/17/21 04/17/21 04/17/21 Range/Units 12:26 16:25 19:56 WBC (3.8-10.6) k/uL Plt Count (150-450) k/uL Nucleated RBCs (0-0) /100 WBC Potassium (3.5-5.1) mmol/L Chloride (98-107) mmol/L Carbon Dioxide (22-30) mmol/L BUN (7-17) mg/dL Glucose (74-99) mg/dL Total Bilirubin (0.2-1.3) mg/dL ALT (4-34) U/L Troponin I 0.059 H* 0.054 H* (0.000-0.034) ng/mL Urine Blood Trace H (Negative) Urine RBC (0-5) /hpf Urine Bacteria (None) /hpf Hyaline Casts (0-2) /lpf Urine Mucus Rare H (None) /hpf 04/17/21 Range/Units 22:00 WBC (3.8-10.6) k/uL Plt Count (150-450) k/uL Nucleated RBCs (0-0) /100 WBC Potassium (3.5-5.1) mmol/L Chloride (98-107) mmol/L Carbon Dioxide (22-30) mmol/L BUN (7-17) mg/dL Glucose (74-99) mg/dL Total Bilirubin (0.2-1.3) mg/dL ALT (4-34) U/L Troponin I (0.000-0.034) ng/mL Urine Blood Trace H (Negative) Urine RBC 9 H (0-5) /hpf Urine Bacteria Rare H (None) /hpf Hyaline Casts 5 H (0-2) /lpf Urine Mucus Rare H (None) /hpf
[2021-04-18] MEDS: ASPIRIN 81 MG PO SCH (09:33)
[2021-04-18] MEDS: ALBUTEROL NEBULIZED 2.5 MG/3 ML INHALATION SCH ×4 (09:49→21:34)
[2021-04-18 10:37] LABS: Basophils % (A) 0 %; Eosinophils % (A) 0 %; HCT 33.2 % (34.0-46.0); Lymphocytes # (A) 1.1 k/uL (1.0-4.8); Lymphocytes % (A) 14 %; MCH 32.4 pg (25.0-35.0); MCHC 33.2 g/dL (31.0-37.0); MCV 97.4 fL (80.0-100.0); Mean Platelet Volume 13.6; Monocytes # (A) 0.3 k/uL (0-1.0); Monocytes % (A) 4 %; Neutrophils # (A) 6.3 k/uL (1.3-7.7); Neutrophils % (A) 80 %; Platelet Count 95 k/uL (150-450); RDW 15.6 % (11.5-15.5); WBC 7.8 k/uL (3.8-10.6)
[2021-04-18] MEDS ORDERED: LEVOFLOXACIN 750 MG TAB PO SCH (12:00)
--- NOTE | 2021-04-18 15:42 | P.CNPUL ---
History of Present Illness Consult date: 04/18/21 Reason for consult: dyspnea History of present illness: 76-year-old to admission, with extensive mental retardation and developmental delay, sent over to us because of some increased shortness of breath. Patient is nonverbal. Unable to provide any history. She does moan. Nonresponsive to any verbal stimulation. Her baseline neurologic function is significantly impaired. The patient was noted to have increased drowsiness, diminished oral intake, failure to thrive, and some shortness of breath. Initially, her pulse ox was 97% on room air and later on she was found to desaturate and there was obvious that operative pulse ox and for that reason the patient was placed on 4 L about 2 by nasal cannula and her current pulse ox is 95%. No cough. No significant respiratory distress. No reported aspiration. Temperature is 98.6. The white cell count is 7.8. COVID-19 testing was negative. C-reactive protein was at 2.8. Troponin 2 is 0.05 and lactic acid level was at 1.9. Chest x-ray showed questionable atelectatic changes and left lung base. Follow- up chest x-ray was done today showing mild cardiomegaly and small left-sided pleural effusion/atelectasis. The pulmonary vessel which are with essentially prominent. Patient was placed on a combination of Rocephin and clindamycin suspected aspiration pneumonia. Note that the patient's proBNP level was at 483. TSH was normal. She has had no seizure activity. Otherwise no other additional history is available. Review of Systems ROS unobtainable: due to mental status Past Medical History Past Medical History: Dementia, Memory Impairment, Thyroid Disorder History of Any Multi-Drug Resistant Organisms: None Reported Past Surgical History: No Surgical Hx Reported Past Psychological History: No Psychological Hx Reported Smoking Status: Never smoker Past Alcohol Use History: None Reported Past Drug Use History: None Reported - Past Family History Mother History Unknown: Yes Father History Unknown: Yes Medications and Allergies Home Medications Medication Instructions Recorded Confirmed Type Albuterol Nebulized [Ventolin 2.5 mg INHALATION RT-Q6H PRN 04/17/21 04/17/21 History Nebulized] Albuterol Sulfate [Ventolin HFA] 2 puff INHALATION RT-Q6H PRN 04/17/21 04/17/21 History Cholecalciferol [Vitamin D3 (25 50 mcg PO DAILY 04/17/21 04/17/21 History Mcg = 1000 Iu)] Divalproex Sodium [Depakote] 500 mg PO BID 04/17/21 04/17/21 History Fluticasone Nasal [place] [Flonase 1 spr EA NOSTRIL DAILY@1400 04/17/21 04/17/21 History Nasal [place]] Levothyroxine Sodium [Synthroid] 100 mcg PO DAILY 04/17/21 04/17/21 History Loperamide [Imodium] 2 mg PO QID PRN 04/17/21 04/17/21 History Melatonin 6 mg PO DAILY@1900 04/17/21 04/17/21 History Siltussin Sa 100mg/5ml 200 - 400 mg PO Q4H PRN MDD 6 DOSES 04/17/21 04/17/21 History clonazePAM [KlonoPIN] 0.5 mg PO BID 04/17/21 04/17/21 History traZODone HCL 150 mg PO HS 04/17/21 04/17/21 History Allergies Allergy/AdvReac Type Severity Reaction Status Date / Time donepezil Allergy Unknown Verified 04/17/21 11:35 Penicillins Allergy Rash/Hives Verified 04/17/21 11:35 Physical Exam Vitals: Vital Signs Temp Pulse Pulse Resp BP BP Pulse Ox 04/18/21 14:00 20 04/18/21 11:48 98.6 F 77 20 128/94 95 04/18/21 10:26 82 04/18/21 10:19 82 04/18/21 08:00 99.2 F 81 20 120/95 94 L 04/18/21 03:15 98 F 79 19 136/73 96 04/18/21 01:41 97.5 F L 04/18/21 00:10 94.5 F L 81 18 120/65 94 L 04/17/21 22:20 92.3 F L 04/17/21 21:15 64 19 143/63 98 04/17/21 18:01 61 18 121/109 92 L Intake and Output 04/18/21 04/18/21 04/18/21 06:59 14:59 22:59 Intake Total 450 Output Total 100 Balance -100 450 Intake: Intake, IV Titration 450 Amount Clindamycin 600 mg In 50 Dextrose 5% in Water 50 ml @ 50 mls/hr IVPB Q8HR [facility] Rx#:[id number] Sodium Chloride 0.9% 1, 400 000 ml @ 100 mls/hr IV . Q10H [facility] Rx#:[id number] Output: Urine 100 Other: Voiding Method Indwelling Catheter Indwelling Catheter # Voids 1 Weight 70 kg GENERAL DESCRIPTION: Elderly female lying in bed, no distress. No tachypnea or accessory muscle of respiration use. The patient is unable to communicate. She does not seem to be having labored breathing. She does not seem to be toxic. Whenever she is touched or stimulated, she would yell and she would moan. She is nonverbal. She cannot communicate or say sentences. HEENT: Shows Pallor , no scleral icterus. Oral mucous membrane is dry. NECK: Trachea central, no thyromegaly. LUNGS: Unlabored breathing. Coarse breath sounds bilaterally. No wheeze or crackle. HEART: S1, S2, regular rate and rhythm. ABDOMEN: Soft, no tenderness , guarding or rigidity EXTREMITIES: No edema of feet. SKIN: No rash, no masses palpable. NEUROLOGICAL: The patient is lethargic nonverbal orientation could not be determined, she will go 4 extremities. Cognitive functions are impaired. Speech is impaired. Results - Laboratory Findings CBC and BMP: 04/18/21 08:37 04/17/21 11:37 PT/INR, D-dimer PT 9.6 sec (9.0-12.0) 04/17/21 11:37 INR 0.9 (<1.2) 04/17/21 11:37 Abnormal lab findings: Abnormal Labs 04/17/21 04/17/21 04/17/21 11:37 11:37 11:37 WBC 2.9 L RBC Hgb Hct RDW Plt Count 110 L Nucleated RBCs 2 H Potassium 5.3 H Chloride 92 L Carbon Dioxide 38 H BUN 22 H Glucose 104 H Total Bilirubin 0.1 L ALT 38 H Troponin I 0.059 H* C-Reactive Protein Urine Blood Urine RBC Urine Bacteria Hyaline Casts Urine Mucus 04/17/21 04/17/21 04/17/21 12:26 16:25 19:56 WBC RBC Hgb Hct RDW Plt Count Nucleated RBCs Potassium Chloride Carbon Dioxide BUN Glucose Total Bilirubin ALT Troponin I 0.059 H* 0.054 H* C-Reactive Protein Urine Blood Trace H Urine RBC Urine Bacteria Hyaline Casts Urine Mucus Rare H 04/17/21 04/18/21 04/18/21 22:00 08:37 08:37 WBC RBC 3.40 L Hgb 11.0 L Hct 33.2 L RDW 15.6 H Plt Count 95 L Nucleated RBCs Potassium Chloride Carbon Dioxide BUN Glucose Total Bilirubin ALT Troponin I C-Reactive Protein 2.8 H Urine Blood Trace H Urine RBC 9 H Urine Bacteria Rare H Hyaline Casts 5 H Urine Mucus Rare H - Diagnostic Findings Chest x-ray: image reviewed Assessment and Plan Plan: 1 questionable pneumonia, likely of an aspiration type, currently on accommodation Rocephin and Flagyl. 2 acute hypoxic respiratory failure currently on liters of oxygen by nasal cannula to maintain a saturation above 90%. 3 developmental delay/mental retardation, severe 4 hypothyroidism 5 troponin leak, no acute ischemic EKG changes 6 diminished oral intake, failure to thrive along with a very poor baseline performance and functional status is extremely poor secondary to above-mentioned comorbidities. Plan Aspiration precautions Swallow evaluation if possible Continue same antibiotic coverage Wean down the FiO2 as tolerated to maintain saturation above 90% Overall respiratory status is stable for now. The patient is breathing comfortably and her breathing is nonlabored and she does not look to be toxic.
--- NOTE | 2021-04-18 16:33 | PN ---
PROGRESS NOTE DATE OF SERVICE: 04/18/2021 REASON FOR FOLLOWUP: Right-sided pneumonia, possible aspiration. INTERVAL HISTORY: The patient is afebrile. The patient is hemodynamically stable. The patient nonverbal, unable to provide any history. No vomiting, diarrhea or any other changes reported by the nursing staff. EXAMINATION: Blood pressure 122/94 with a pulse of 76, temperature 98.6. She is 95% on 4 L. General description is an elderly female lying in bed in no distress. Respiratory system: Unlabored breathing, decreased intensity in breath sounds in the base, with no wheeze. Heart S1, S2. Regular rate and rhythm. Abdomen soft. No tenderness. LABORATORY DATA: Hemoglobin 11, white count 6.8. CRP is 2.94. . DIAGNOSTIC IMPRESSION AND PLAN: Patient with right perihilar infiltrate concerning for aspiration pneumonia. Patient is covered with Rocephin and clindamycin to continue while waiting for the culture to finalize and . Continue supportive care. MMODL / IJN: [id number] /
--- NOTE | 2021-04-18 19:39 | HP ---
HISTORY AND PHYSICAL CHIEF COMPLAINT: Mental status changes. HISTORY OF PRESENT ILLNESS: This is the first known admission for this 76-year-old mentally debilitated female who lives in a usp and is wheelchair bound. She is mentally incapacitated as well as physically. She generally is able to move about, make unintelligible noises, eat, swallow and eliminate. The usp took her to the emergency room at [facility] because she suddenly had become unresponsive. They treated her and released her. They called my office and we told them them to bring her in and she was referred to the emergency room. There she was quite lethargic and minimally responsive. There may have been a question of pneumonitis, but clinically there is no significant sign of infection. Lactic acid was normal. She was unable to eat and swallow. She is admitted for further evaluation to look for the etiology of her deterioration as well as to determine if she was able to swallow or would need artificial means of feeding and longterm placement. REVIEW OF SYSTEMS: Is unobtainable. Past medical history, family history and personal and social histories are unobtainable. ALLERGIES: SHE IS ALLERGIC TO PENICILLIN AND SHE CANNOT TAKE ARICEPT OR PROLIXIN. MEDICATIONS: She is currently on Keflex, Flonase, , vitamin D, levothyroxine, albuterol, trazodone and Depakote. She has been deemed bipolar in the past and apparently has had seizure history as well. PHYSICAL EXAMINATION: Blood pressure 92/68, pulse of 120, respirations 16. She is afebrile. In general she appeared to be much more lethargic than usual. She is pale and peripherally vasoconstricted. CHEST is clear. CARDIAC exam demonstrated tachycardia. ABDOMEN is soft and did not seem to be tender. EXTREMITIES are unchanged. IMPRESSION: 1. Mental status changes. 2. Rule out sepsis. 3. Rule out other neurologic or cardiovascular disorder. PLAN: 1. Bedrest. 2. Appropriate cultures. 3. Cardiac enzymes. 4. Consult with Cardiology, Infectious Disease as well as Dye Line Operator for placement. MMODL / IJN: [id number] /
--- NOTE | 2021-04-18 19:39 | PN ---
PROGRESS NOTE DATE OF SERVICE: 04/18/2021 CHIEF COMPLAINT: Mental status changes. HISTORY OF PRESENT ILLNESS: This lady may be a little bit more alert and responsive than yesterday. PHYSICAL EXAMINATION: Her face is flushed. Chest is clear. Cardiac exam is normal. The abdomen is soft and she does not seem to have tenderness. There are no palpable masses or visceromegaly. IMPRESSION: 1. Mental status changes, etiology unknown. 2. Severe mental and physical debility. PLAN: 1. Repeat laboratory studies. 2. Troponins are elevated and her symptoms will be watched. 3. During the night she became very hypotensive, but this is improved. 4. Await guidelines from Infectious Disease. 5. Await Sliver Lapper recommendation. 6. Await Speech Therapy for swallow evaluation. MMODL / IJN: [id number] /
[2021-04-19] MEDS: SODIUM CHLORIDE 0.9% 1,000 ML IV SCH ×3 (02:39→16:48)
[2021-04-19] MEDS: ALBUTEROL NEBULIZED 2.5 MG/3 ML INHALATION SCH ×4 (07:43→21:03)
[2021-04-19] MEDS: CLINDAMYCIN 600 MG in DEXTROSE 5% IN WATER 50 ML IVPB SCH ×2 (08:16)
[2021-04-19] MEDS: ASPIRIN 81 MG PO SCH (08:20)
[2021-04-19] MEDS ORDERED: ALBUTEROL NEBULIZED 2.5 MG/3 ML INHALATION PRN (10:54)
--- NOTE | 2021-04-19 15:55 | PN ---
PROGRESS NOTE DATE OF SERVICE: 04/19/2021 REASON FOR FOLLOWUP: Possible aspiration pneumonia. INTERVAL HISTORY: The patient is afebrile. The patient is nonverbal and is unable to provide any history. No vomiting or diarrhea has been reported by the nursing staff. PHYSICAL EXAMINATION: Blood pressure 129/60 with a pulse of 70, temperature 97.8. She is 99% on 4 L nasal cannula. GENERAL DESCRIPTION: General description is an elderly female up in the bed in no distress. RESPIRATORY SYSTEM: Unlabored breathing. Coarse breath sounds. No wheeze. HEART: S1, S2. Regular rate and rhythm. ABDOMEN: Soft. No tenderness. LABS: No new labs have been obtained today. White count normal as of yesterday. Blood cultures . DIAGNOSTIC IMPRESSION AND PLAN: Patient admitted to hospital with congested cough and there was a concern about possible pneumonia, possible aspiration. Blood culture is normal. We will discontinue the clindamycin decrease risk of C difficile. May consider short course of Rocephin. Repeat the x-ray and inflammatory markers and monitor clinical course closely. MMODL / IJN: [id number] /
[2021-04-19 17:02] LABS: Glucose,Whole Blood 73 mg/dL (75-99)
--- NOTE | 2021-04-19 19:36 | PN ---
PROGRESS NOTE CHIEF COMPLAINT: Mental status changes. HISTORY OF PRESENT ILLNESS: This lady is a little bit more alert, but she did not pass her swallow evaluation yesterday. We will resume some of her medications, but IV. PHYSICAL EXAMINATION: Chest demonstrates occasional rhonchi. Cardiac exam is normal. She seems a little bit more alert each day than she has been. IMPRESSION: 1. Mental status changes. 2. Cerebral palsy. 3. General debility. 4. Dysphagia. PLAN: Continue to monitor over the weekend. Repeat swallow study on Thursday while awaiting discharge arrangements. MMODL / IJN: [id number] /
[2021-04-19 20:50] LABS: Glucose,Whole Blood 78 mg/dL (75-99)
[2021-04-19] MEDS ORDERED: DIVALPROEX 500 MG TABLET.DR PO SCH (21:00)
[2021-04-19] MEDS: levETIRAcetam IV 500 MG in SODIUM CHLORIDE 0.9% 100 ML IVPB SCH (21:12)
[2021-04-20 06:19] LABS: Glucose,Whole Blood 74 mg/dL (75-99)
[2021-04-20] MEDS ORDERED: LEVOTHYROXINE 100 MCG TAB PO SCH (06:30)
[2021-04-20] MEDS: LEVOTHYROXINE IVP 100 MCG/5 ML VIAL IV SCH ×2 (06:31→09:09)
[2021-04-20] MEDS: SODIUM CHLORIDE 0.9% 1,000 ML IV SCH ×2 (06:31→09:12)
[2021-04-20] MEDS: ALBUTEROL NEBULIZED 2.5 MG/3 ML INHALATION SCH ×4 (07:51→18:18)
[2021-04-20] MEDS: ASPIRIN 81 MG PO SCH (09:09)
[2021-04-20] MEDS: levETIRAcetam IV 500 MG in SODIUM CHLORIDE 0.9% 100 ML IVPB SCH ×2 (09:11→20:35)
--- NOTE | 2021-04-20 10:59 | XR ---
EXAMINATION TYPE: XR chest 1V portable DATE OF EXAM: 04/20/2021 CLINICAL HISTORY: Difficulty breathing annual pneumonitis progress study. TECHNIQUE: Single AP portable upright view of the chest is obtained. COMPARISON: Chest x-ray from 2 days earlier FINDINGS: Current study degraded by motion artifact. Stable mild cardiomegaly with atherosclerotic c hange aortic knob. Improved aeration in the bases with persistent patchy left basilar opacity. Upper lungs remain clear. Degenerative changes both shoulders redemonstrated. Underlying scoliosis noted. IMPRESSION: Mild Cardiomegaly with improving bibasilar opacities. Persistent patchy left basilar acut e atelectasis and/or infiltrate.
[2021-04-20 11:45] LABS: ALT 26 U/L (4-34); African American GFR (CKD) >90 (>60 ml/min/1.73 sqM); Albumin 3.2 g/dL (3.5-5.0); Anion Gap 6 mmol/L; Blood Urea Nitrogen 17 mg/dL (7-17); Calcium 9.2 mg/dL (8.4-10.2); Carbon Dioxide 26 mmol/L (22-30); Chloride 103 mmol/L (98-107); Glucose 57 mg/dL (74-99); Non-African American GFR(CKD) >90 (>60 ml/min/1.73 sqM); Sodium 135 mmol/L (137-145); Total Bilirubin 0.6 mg/dL (0.2-1.3); Total Protein 6.2 g/dL (6.3-8.2)
[2021-04-20 11:47] LABS: Basophils % (A) 0 %; Eosinophils % (A) 1 %; HCT 30.8 % (34.0-46.0); HGB 10.6 gm/dL (11.4-16.0); Lymphocytes # (A) 1.4 k/uL (1.0-4.8); Lymphocytes % (A) 30 %; MCH 33.3 pg (25.0-35.0); MCHC 34.3 g/dL (31.0-37.0); Mean Platelet Volume 12.4; Monocytes # (A) 0.4 k/uL (0-1.0); Monocytes % (A) 8 %; Neutrophils # (A) 2.7 k/uL (1.3-7.7); Neutrophils % (A) 57 %; RBC 3.18 m/uL (3.80-5.40); RDW 14.8 % (11.5-15.5); WBC 4.8 k/uL (3.8-10.6)
[2021-04-20 11:49] LABS: AST 42 U/L (14-36); Alkaline Phosphatase 72 U/L (38-126); Potassium 5.5 mmol/L (3.5-5.1)
[2021-04-20] MEDS ORDERED: DEXTROSE 50% SYRINGE 50 ML IVP ONE ×2 (11:51→16:55)
[2021-04-20 11:52] LABS: Glucose,Whole Blood 66 mg/dL (75-99)
[2021-04-20 13:16] LABS: Anisocytosis (M) Present; Platelet Count 85 k/uL (150-450); Poikilocytosis (M) Present
--- NOTE | 2021-04-20 15:23 | PN ---
PROGRESS NOTE DATE OF SERVICE: 04/20/2021 CHIEF COMPLAINT: Mental status changes. HISTORY OF PRESENT ILLNESS: This morning this lady is very agitated. Her vital signs have been normal. She failed a swallow study yesterday and she will have another one on Thursday. If she does not pass this, we will seek to have a PEG tube placed. PHYSICAL EXAMINATION: She is quite agitated. Her chest is clear. Cardiac exam demonstrates tachycardia. The abdomen is soft and nontender. IMPRESSION: 1. Mental status changes. 2. Mental debility. 3. Inability to swallow. PLAN: 1. Repeat laboratory studies. 2. Repeat swallow evaluation on Thursday. MMODL / IJN: [id number] /
[2021-04-20 16:51] LABS: Glucose,Whole Blood 66 mg/dL (75-99)
[2021-04-20 17:05] LABS: Glucose,Whole Blood 247 mg/dL (75-99)
[2021-04-20 20:37] LABS: Glucose,Whole Blood 94 mg/dL (75-99)
[2021-04-21 01:52] LABS: Glucose,Whole Blood 80 mg/dL (75-99)
[2021-04-21] MEDS: SODIUM CHLORIDE 0.9% 1,000 ML IV SCH ×3 (03:35→18:49)
[2021-04-21 05:52] LABS: Glucose,Whole Blood 79 mg/dL (75-99)
--- NOTE | 2021-04-21 07:14 | PN ---
PROGRESS NOTE DATE OF SERVICE: 04/20/2021 REASON FOR FOLLOWUP: Possible pneumonia. INTERVAL HISTORY: Patient is afebrile. The patient remains to be nonverbal. The patient is currently on nasal cannula oxygen. No respiratory distress has been noticed. No vomiting or any diarrhea. PHYSICAL EXAMINATION: Blood pressure 114/56, pulse of 87, temperature 99. She is 93% on 2 L nasal cannula. General description is an elderly female lying in bed in no distress. Respiratory system: Unlabored breathing, decreased breath sounds in the base. No wheeze. Heart S1, S2. Regular rate and rhythm. Abdomen soft, no tenderness. LABORATORY STUDIES: Hemoglobin is 10.6, white count 4.8, BUN of 17, creatinine 0.56. Blood culture negative. Chest x-ray did show improvement in the bibasilar infiltrate. DIAGNOSTIC IMPRESSION/PLAN: Patient admitted to the hospital with congested cough, mental status changes, concerning for pneumonia, failing outpatient therapy. Overall improvement on Rocephin. X-ray did show some improvement as well. The plan is for finish therapy with a short course of oral Ceftin and close outpatient followup. MMODL / IJN: [id number] /
[2021-04-21] MEDS: ASPIRIN 81 MG PO SCH (08:13)
[2021-04-21] MEDS: levETIRAcetam IV 500 MG in SODIUM CHLORIDE 0.9% 100 ML IVPB SCH ×2 (08:13→22:12)
[2021-04-21] MEDS: LEVOTHYROXINE IVP 100 MCG/5 ML VIAL IV SCH (08:13)
[2021-04-21] MEDS: ALBUTEROL NEBULIZED 2.5 MG/3 ML INHALATION SCH ×4 (08:24→19:34)
[2021-04-21 11:52] LABS: Glucose,Whole Blood 75 mg/dL (75-99)
[2021-04-21 16:44] LABS: Glucose,Whole Blood 66 mg/dL (75-99)
--- NOTE | 2021-04-21 16:52 | PN ---
PROGRESS NOTE DATE OF SERVICE: 04/21/2021 REASON FOR FOLLOWUP: Possible pneumonia. INTERVAL HISTORY: The patient is afebrile. The patient is breathing comfortably on nasal cannula oxygen. The patient is unable to provide any history. No vomiting, diarrhea or any other changes reported by the nursing staff. PHYSICAL EXAMINATION: Blood pressure 100/63, pulse of 65, temperature 98. She is 94% on 2 L nasal cannula. General description is an elderly female lying in bed in no distress. Respiratory system: Unlabored breathing, decreased breath sounds in the base. No wheeze. Heart S1, S2. Regular rate and rhythm. Abdomen soft, no tenderness. LABS: No new labs have been obtained today. DIAGNOSTIC IMPRESSION AND PLAN: Patient with admission to the hospital with congested cough, hypoxemia concerning for pneumonia failing outpatient antibiotic therapy. Overall improvement on Rocephin. Chest x-ray did show improvement. short course of oral Ceftin on discharge. MMODL / IJN: [id number] /
[2021-04-21] MEDS ORDERED: DEXTROSE 50% SYRINGE 50 ML IVP ONE (17:56)
[2021-04-21 18:11] LABS: Glucose,Whole Blood 216 mg/dL (75-99)
[2021-04-21 20:02] LABS: Glucose,Whole Blood 103 mg/dL (75-99)
[2021-04-22 06:10] LABS: Glucose,Whole Blood 71 mg/dL (75-99)
[2021-04-22] MEDS: ASPIRIN 81 MG PO SCH (07:45)
[2021-04-22] MEDS: ALBUTEROL NEBULIZED 2.5 MG/3 ML INHALATION SCH ×4 (08:20→19:53)
[2021-04-22] MEDS: LEVOTHYROXINE IVP 100 MCG/5 ML VIAL IV SCH (09:25)
[2021-04-22] MEDS: levETIRAcetam IV 500 MG in SODIUM CHLORIDE 0.9% 100 ML IVPB SCH ×2 (09:25→21:30)
[2021-04-22 11:45] LABS: Glucose,Whole Blood 67 mg/dL (75-99)
[2021-04-22] MEDS ORDERED: DEXTROSE 50% SYRINGE 50 ML IVP STA (11:48)
[2021-04-22 12:23] LABS: Glucose,Whole Blood 146 mg/dL (75-99)
[2021-04-22] MEDS ORDERED: ACETAMINOPHEN SUPPOSITORY 650 MG SUPP RECTAL PRN (15:41)
[2021-04-22 16:28] LABS: Glucose,Whole Blood 85 mg/dL (75-99)
--- NOTE | 2021-04-22 16:54 | XR ---
EXAMINATION TYPE: XR chest 1V portable DATE OF EXAM: 04/22/2021 COMPARISON: 04/20/2021 HISTORY: Pneumonia TECHNIQUE: Single view FINDINGS: Heart is enlarged. There is some patchy airspace consolidation left lower lobe. There is pu lmonary vascular congestion. There are chest leads. Thoracic aorta is atheromatous. IMPRESSION: Increasing left lower lobe pneumonia compared to recent exam. There is also some congestive heart paige lure.
--- NOTE | 2021-04-22 17:05 | PN ---
PROGRESS NOTE DATE OF SERVICE: 04/22/2021 REASON FOR FOLLOWUP: Pneumonia. INTERVAL HISTORY: The patient did have a low-grade fever of 100.9 this afternoon. The patient remains slightly lethargic and is unable to provide any history. No vomiting, diarrhea or other changes reported by the nursing staff. PHYSICAL EXAMINATION: Blood pressure 142/84 with a pulse of 75, temperature 100.9. She is 97% on 2 L nasal cannula. GENERAL DESCRIPTION: General description is an elderly female lying in bed in no distress. RESPIRATORY SYSTEM: Unlabored breathing. Coarse breath sounds at the bases bilaterally. No wheeze. HEART: S1, S2. Regular rate and rhythm. ABDOMEN: Soft. No tenderness. LABS: No new labs have been obtained today. DIAGNOSTIC IMPRESSION AND PLAN: Patient admitted to hospital with concern for pneumonia. This patient did have overall improvement initially. However, now with a new fever that is slightly concerning; concern for possible recurrent aspiration. We will repeat the blood cultures and also repeat the chest x-ray. We need to take aspiration precautions. Continue supportive care. MMODL / IJN: [id number] /
--- NOTE | 2021-04-22 17:08 | CDI ---
Documentation Clarification Form Date: 04/22/2021 05:05:49 PM From: Erika Chopra RN, CCDS Admit Date: 04/17/2021 01:43:00 PM Patient Name: Mari Diallo Visit Number: [id number] ATTENTION: The Clinical Documentation Specialists (CDI) and [facility] Coding Staff appreciate your assistance in clarifying documentation. Please respond to the clarification below the line at the bottom and electronically sign. The CDI & [facility] Coding staff will review the response and follow-up if needed. Please note: Queries are made part of the Legal Health Record. If you have any questions, please contact the author of this message via ITS. Dr. Patricio Muñoz Your patient has the documented symptom of Altered Mental Status [insert date, location]. Additional clarification regarding the etiology/cause of this symptom is requested. History/Risk Factors: Cerebral Palsy with severe mental retardation, Acute Hypoxic Respiratory Failure, Aspiration Pneumonia, Hypothyroidism Clinical Indicators: 04/20 ID Progress Note: "DIAGNOSTIC IMPRESSION/PLAN: Patient admitted to the hospital with congested cough, mental status changes, concerning for pneumonia, failing outpatient therapy." 04/18 H&P-04/21 Attending Progress Notes: "Mental Status Changes." Documented infection: 04/18 Pulmonary consult: "Patient was placed on a combination of Rocephin and Clindamycin suspected aspiration pneumonia. Plan: 1 questionable pneumonia, likely of an aspiration type, currently on accommodation Rocephin and Flagyl." 04/17-04/20 Labs: WBC: 2.9/7.8/4.8 K+ 5.3/5.5 Glucose 104/57 04/20 Chest X Ray:" Mild Cardiomegaly with improving bibasilar opacities. Persistent patchy left basilar acute atelectasis and/or infiltrate." 04/17 CT Brain: "Clinical consideration for normal pressure hydrocephalus is recommended .Mild chronic appearing periventricular white matter ischemic type changes." Treatment: IV Ceftriaxone 1gm IVPB Q 24hrs IV Clindamycin 600 mg IVPB x 2 doses 04/17 IV Levaquin 750 mg IVPB x 1 dose 04/20-04/22 Several amps of D50 per hypoglycemia protocol Please clarify the etiology of the symptom of Altered Mental Status: [ ] Metabolic encephalopathy (specify cause if known) [ ] Other condition (please specify) [ ] Unable to determine (Template Last Revised: September 2020) MTDD
[2021-04-22] MEDS: SODIUM CHLORIDE 0.9% 1,000 ML IV SCH (18:49)
[2021-04-22 19:58] LABS: Glucose,Whole Blood 88 mg/dL (75-99)
[2021-04-22 23:59] LABS: Glucose,Whole Blood 90 mg/dL (75-99)
[2021-04-23] MEDS ORDERED: LORazepam 2 MG/ML INJ ONE (02:28)
[2021-04-23 02:30] LABS: Glucose,Whole Blood 101 mg/dL (75-99)
[2021-04-23] MEDS ORDERED: propofoL 100 ML IV ONE (02:46)
[2021-04-23 02:57] LABS: Glucose,Whole Blood 105 mg/dL (75-99)
[2021-04-23] MEDS ORDERED: levETIRAcetam IV 1,000 MG in SALINE 1 100ML.BAG IVPB ONE (03:00)
[2021-04-23 03:15] LABS: Basophils % (A) 0 %; Eosinophils % (A) 0 %; HCT 30.8 % (34.0-46.0); HGB 10.1 gm/dL (11.4-16.0); Hypochromasia Slight; Lymphocytes # (A) 1.5 k/uL (1.0-4.8); Lymphocytes % (A) 29 %; MCH 32.6 pg (25.0-35.0); MCHC 32.8 g/dL (31.0-37.0); MCV 99.3 fL (80.0-100.0); Macrocytosis Slight; Mean Platelet Volume 9.7; Monocytes # (A) 0.5 k/uL (0-1.0); Monocytes % (A) 9 %; Neutrophils % (A) 58 %; Platelet Count 154 k/uL (150-450); RDW 15.6 % (11.5-15.5); WBC 5.2 k/uL (3.8-10.6)
--- NOTE | 2021-04-23 03:22 | XR ---
EXAMINATION TYPE: XR chest 1V portable DATE OF EXAM: 04/23/2021 COMPARISON: Yesterday HISTORY: Respiratory failure. Fever. TECHNIQUE: Single view FINDINGS: Endotracheal tube is 1.3 cm from the michael. There is pulmonary edema. There is nasogastric tube in the stomach. IMPRESSION: There is pulmonary interstitial and airspace edema which appears slightly worse than yest erday. Endotracheal tube is low.
[2021-04-23 03:24] LABS: ABG Base Excess 4.8 mmol/L; ABG HCO3 30 mmol/L (21-25); ABG PCO2 49 mmHg (35-45); ABG PH 7.39 (7.35-7.45); ABG PO2 348 mmHg (83-108); ABG TCO2 31 mmol/L (19-24); Allen Test Performed? Yes
[2021-04-23 03:25] LABS: ALT 26 U/L (4-34); AST 40 U/L (14-36); African American GFR (CKD) >90 (>60 ml/min/1.73 sqM); Albumin 3.2 g/dL (3.5-5.0); Alkaline Phosphatase 79 U/L (38-126); Anion Gap 9 mmol/L; Blood Urea Nitrogen 22 mg/dL (7-17); Calcium 8.7 mg/dL (8.4-10.2); Carbon Dioxide 26 mmol/L (22-30); Chloride 106 mmol/L (98-107); Glucose 112 mg/dL (74-99); Magnesium 1.2 mg/dL (1.6-2.3); Non-African American GFR(CKD) 88 (>60 ml/min/1.73 sqM); Potassium 3.4 mmol/L (3.5-5.1); Sodium 141 mmol/L (137-145); Total Bilirubin 0.6 mg/dL (0.2-1.3); Total Protein 6.2 g/dL (6.3-8.2)
--- NOTE | 2021-04-23 03:33 | XR ---
EXAMINATION TYPE: XR chest 1V portable DATE OF EXAM: 04/23/2021 COMPARISON: Today HISTORY: Respiratory failure. TECHNIQUE: Single view FINDINGS: Endotracheal tube is in good position 3.8 cm from the michael. There is some pulmonary inter stitial edema. There is blunting of the left costophrenic angle. There are chest leads. There is naso gastric tube in the stomach. Tube is close to the gastroesophageal junction. IMPRESSION: There is some improvement in the pulmonary edema compared to the exam 20 minutes ago. End otracheal tube in good position.
--- NOTE | 2021-04-23 03:35 | P.EN ---
A team note 76 year old female with developmental delays , admitted for worsening breathing and suspected aspiration pneumonia A team called for seizure activity , patient given ativan to abort the episode, she is already has been maintained on keppra , after the episode , patient remained hypoxic with agonal breathing, and minimally responsive , for which she was intubated and moved to the icu CXR reviewed , and decision made to withdraw the tube by about 2 cm as it was pointed toward the right main bronchus, await repeat CXR after ET tube adjustment EKG reviewed no acute ST changes, sinus nya with RBBB repeat labs CBC, CMP, lactic acid , magnesium adjust antibiotics due to possible aspiration , added flagyl (due to penicillin allergy), increase rocephine to 2 gm daily patient has left forearm sloughing skin blister looks healthy and clean , dressing change ICU care vent care Propfol for sedation neuro eval per primary team recommendations case discussed with ICU attending Total amount of critical care time spent was 45 minutes not counting procedures performed.
[2021-04-23] MEDS: metroNIDAZOLE-NS PMX 500 MG in SALINE 1 100ML.BAG IVPB SCH ×3 (03:41→21:27)
[2021-04-23] MEDS ORDERED: Potassium Replacement Protocol 1 EACH MISC MISCELLANE PRN (03:50)
[2021-04-23] MEDS ORDERED: POTASSIUM CHLORIDE ER 20 MEQ TAB.ER PO SCH (04:00)
[2021-04-23] MEDS: POTASSIUM BICARBONATE/CIT AC 20 MEQ TABLET.EFF NG-TUBE SCH ×2 (04:28→06:13)
[2021-04-23] MEDS ORDERED: Magnesium Replacement Protocol 1 EACH MISC MISCELLANE PRN (05:38)
[2021-04-23] MEDS: MAGNESIUM SULFATE-D5W PMX 1 GM in DEXTROSE/WATER 1 100ML.BAG IVPB SCH ×3 (06:13→14:48)
[2021-04-23] MEDS ORDERED: MAGNESIUM SULFATE-D5W PMX 1 GM in DEXTROSE/WATER 1 100ML.BAG IVPB SCH (07:00)
[2021-04-23] MEDS: LEVOTHYROXINE IVP 100 MCG/5 ML VIAL IV SCH (08:16)
[2021-04-23] MEDS: CHLORHEXIDINE GLUCONATE 15 ML CUP MUCOUS MEM SCH ×2 (08:17→21:27)
[2021-04-23] MEDS: ALBUTEROL NEBULIZED 2.5 MG/3 ML INHALATION SCH ×5 (08:18→20:25)
[2021-04-23] MEDS: ASPIRIN 81 MG PO SCH (08:18)
[2021-04-23 11:26] LABS: Glucose,Whole Blood 77 mg/dL (75-99)
--- NOTE | 2021-04-23 12:22 | P.PN ---
Subjective Progress Note Date: 04/23/21 Principal diagnosis: Seizures, aspiration pneumonia 76-year-old to admission, with extensive mental retardation and developmental delay, sent over to us because of some increased shortness of breath. Patient is nonverbal. Unable to provide any history. She does moan. Nonresponsive to any verbal stimulation. Her baseline neurologic function is significantly impaired. The patient was noted to have increased drowsiness, diminished oral intake, failure to thrive, and some shortness of breath. Initially, her pulse ox was 97% on room air and later on she was found to desaturate and there was obvious that operative pulse ox and for that reason the patient was placed on 4 L about 2 by nasal cannula and her current pulse ox is 95%. No cough. No significant respiratory distress. No reported aspiration. Temperature is 98.6. The white cell count is 7.8. COVID-19 testing was negative. C-reactive protein was at 2.8. Troponin 2 is 0.05 and lactic acid level was at 1.9. Chest x-ray showed questionable atelectatic changes and left lung base. Follow- up chest x-ray was done today showing mild cardiomegaly and small left-sided pleural effusion/atelectasis. The pulmonary vessel which are with essentially prominent. Patient was placed on a combination of Rocephin and clindamycin suspected aspiration pneumonia. Note that the patient's proBNP level was at 483 . TSH was normal. She has had no seizure activity. Otherwise no other additional history is available. The patient is seen today 04/23/2021 in follow-up in the intensive care unit. Early this morning the patient developed seizure activity and developed respiratory distress requiring intubation mechanical ventilatory support and transfer to the ICU. She is currently on the ventilator program to assist control mode at a respiratory rate of 18, tidal volume 400, FiO2 50% and a PEEP of 5. Morning blood gases revealed a P O2 of 348, pCO2 of 49 and a pH of 7.30 on 100% FiO2. She is sedated on propofol at 40 mcg/kg/m. 0.9 normal sinus at 10 MLS per hour. She has had suspected aspiration pneumonia. Chest x-ray does reveal pulmonary interstitial and airspace edema. Worse compared to yesterday. She is currently on ceftriaxone and Flagyl. Cultures reveal no growth. White count 5.2. Hemoglobin 10.1. Sodium 141. Potassium 3.4. Creatinine 0.61. AST 40, ALT 26. She remains on Keppra. No further seizure activity noted. Objective - Vital Signs Vital signs: Vital Signs Temp 98 F 04/23/21 08:00 Pulse 46 L 04/23/21 09:00 Resp 18 04/23/21 09:00 BP 143/66 04/23/21 09:00 Pulse Ox 98 04/23/21 09:00 Intake & Output 04/22/21 04/23/21 04/23/21 18:59 06:59 18:59 Intake Total 340.844 220 Output Total 325 120 130 Balance -325 220.844 90 Weight 66 kg 69.2 kg Intake: IV 300 220 0.9 20 Magnesium Sulfate-D5w Pmx 100 100 1 gm In Dextrose/Water 1 100ml.bag @ 100 mls/hr IVPB Q1H [facility] Rx#: [id number] levETIRAcetam IV 1,000 mg 100 100 In Saline 1 100ml.bag @ 400 mls/hr IVPB ONCE ONE Rx#:[id number] metroNIDAZOLE-NS PMX 500 100 mg In Saline 1 100ml.bag @ 100 mls/hr IVPB Q8H [facility] Rx#:[id number] Intake, IV Titration 40.844 Amount propofoL 1,000 mg In 40.844 Empty Bag 1 bag @ Titrate IV .Q0M [facility] Rx#: [id number] Output: Urine 325 120 130 Other: Voiding Method Indwelling Catheter Indwelling Catheter Indwelling Catheter - Exam GENERAL EXAM: Intubated, sedated 76-year-old female patient, comfortable in no apparent distress. HEAD: Normocephalic. EYES: Sluggish reaction of pupils, equal size. NOSE: Clear with pink turbinates. THROAT: Oral endotracheal tube secured in place. No erythema or exudates. NECK: No masses, no JVD. CHEST: No chest wall deformity. LUNGS: Equal air entry with bilateral scattered rhonchi. CVS: S1 and S2 normal with no audible murmur, regular rhythm. ABDOMEN: No hepatosplenomegaly, normal bowel sounds, no guarding or rigidity. SPINE: No scoliosis or deformity SKIN: No rashes CENTRAL NERVOUS SYSTEM: Sedated. No focal deficits, tone is normal in all 4 extremities. EXTREMITIES: There is no peripheral edema. No clubbing, no cyanosis. Periphe ral pulses are intact. - Labs CBC & Chem 7: 04/23/21 03:01 04/23/21 03:01 Labs: Abnormal Lab Results - Last 24 Hours (Table) 04/22/21 04/22/21 04/23/21 Range/Units 12:16 17:19 02:28 RBC (3.80-5.40) m/uL Hgb (11.4-16.0) gm/dL Hct (34.0-46.0) % RDW (11.5-15.5) % ABG pCO2 (35-45) mmHg ABG pO2 (83-108) mmHg ABG HCO3 (21-25) mmol/L ABG Total CO2 (19-24) mmol/L ABG O2 Saturation (94-97) % Potassium (3.5-5.1) mmol/L BUN (7-17) mg/dL Glucose (74-99) mg/dL POC Glucose (mg/dL) 146 H 101 H (75-99) mg/dL Magnesium (1.6-2.3) mg/dL AST (14-36) U/L C-Reactive Protein 2.8 H (<1.0) mg/dL Total Protein (6.3-8.2) g/dL Albumin (3.5-5.0) g/dL 04/23/21 04/23/21 04/23/21 Range/Units 02:55 03:01 03:01 RBC 3.10 L (3.80-5.40) m/uL Hgb 10.1 L (11.4-16.0) gm/dL Hct 30.8 L (34.0-46.0) % RDW 15.6 H (11.5-15.5) % ABG pCO2 (35-45) mmHg ABG pO2 (83-108) mmHg ABG HCO3 (21-25) mmol/L ABG Total CO2 (19-24) mmol/L ABG O2 Saturation (94-97) % Potassium 3.4 L (3.5-5.1) mmol/L BUN 22 H (7-17) mg/dL Glucose 112 H (74-99) mg/dL POC Glucose (mg/dL) 105 H (75-99) mg/dL Magnesium 1.2 L (1.6-2.3) mg/dL AST 40 H (14-36) U/L C-Reactive Protein (<1.0) mg/dL Total Protein 6.2 L (6.3-8.2) g/dL Albumin 3.2 L (3.5-5.0) g/dL 04/23/21 Range/Units 03:22 RBC (3.80-5.40) m/uL Hgb (11.4-16.0) gm/dL Hct (34.0-46.0) % RDW (11.5-15.5) % ABG pCO2 49 H (35-45) mmHg ABG pO2 348 H (83-108) mmHg ABG HCO3 30 H (21-25) mmol/L ABG Total CO2 31 H (19-24) mmol/L ABG O2 Saturation 100.0 H (94-97) % Potassium (3.5-5.1) mmol/L BUN (7-17) mg/dL Glucose (74-99) mg/dL POC Glucose (mg/dL) (75-99) mg/dL Magnesium (1.6-2.3) mg/dL AST (14-36) U/L C-Reactive Protein (<1.0) mg/dL Total Protein (6.3-8.2) g/dL Albumin (3.5-5.0) g/dL Microbiology - Last 24 Hours (Table) 04/18/21 00:04 Blood Culture - Preliminary Blood No Growth after 120 hours 04/17/21 14:15 Blood Culture - Preliminary Blood No Growth after 120 hours 04/17/21 14:35 Blood Culture - Preliminary Blood No Growth after 120 hours Assessment and Plan Assessment: 1 Acute hypoxemic respiratory failure secondary to aspiration pneumonia, currently on a combination of Rocephin and Flagyl. Required intubation mechanical ventilatory support early this a.m. following seizure activity. May require PEG tube placement for recurrent aspiration 2 Seizure activity, currently on Keppra. ALLERGY consulted. 3 Developmental delay/mentally challenged, severe 4 Hypothyroidism 5 Troponin leak, no acute ischemic EKG changes 6 Diminished oral intake, failure to thrive along with a very poor baseline performance and functional status is extremely poor secondary to above-mentioned comorbidities. Plan: The patient was seen and evaluated by Dr. Choi Chest x-ray, ABGs and labs reviewed Plan to provide a spontaneous breathing trial and possible extubation today Unable to assess mental status Neurology consult for seizure activity Surgical consult for possible PEG tube placement We will continue to follow and make further recommendations based on her c linical status Critical care time 36 minutes I, the cosigning physician, performed a history & physical examination of the patient. Lungs sounds bilateral scattered rhonchi. Maintaining good O2 saturations in the 90s on 50% FiO2 via the mechanical ventilator. I discussed the assessment and plan of care with my nurse practitioner, Bisi Agee. I attest to the above note as dictated by her. Time with Patient: Greater than 30
--- NOTE | 2021-04-23 12:29 | P.GSCN ---
<Wanda Eng - Last Filed: 04/23/21 12:16> History of Present Illness Consult date: 04/23/21 History of present illness: CHIEF COMPLAINT: Shortness of breath HISTORY OF PRESENT ILLNESS: This is a 76-year-old female with a history of mental retardation and developmental delay. Patient is currently in the ICU. There are concerns that patient is aspirating and that she may have an aspirati on pneumonia. Per her chart patient is nonverbal. Patient required transfer to the ICU early this morning after seizure episode and she required to be intubated due to being hypoxic and minimally responsive. Patient is currently intubated and sedated. She had a speech therapy eval yesterday and was considered high risk for aspiration. Surgical service has been consult in for PEG tube placement. PAST MEDICAL HISTORY: See list. PAST SURGICAL HISTORY: See list. MEDICATIONS: See list. ALLERGIES: See list. SOCIAL HISTORY: No illicit drug use. REVIEW OF SYSTEMS: Patient intubated and sedated PHYSICAL EXAM: VITAL SIGNS: Reviewed GENERAL: Well-developed in no acute distress. HEENT: No sclera icterus. Extraocular movements grossly intact. Moist buccal mucosa. Head is atraumatic, normocephalic. No nasal drainage. ABDOMEN: Soft. Nondistended. Nontender NEUROLOGIC: Intubated and sedated LABORATORY DATA: WBC 5.2 hemoglobin 10.1 platelets 154 Sodium 141 potassium 3.4 BUN 22 creatinine 0.61 Magnesium 1.2 COVID-19 not detected Albumin level 3.2 IMAGING: Chest x-ray some improvement in pulmonary edema ASSESSMENT: 1. Aspiration pneumonia 2. Moderate protein calorie malnutrition PLAN: -Further recommendations forthcoming per surgeon regarding PEG tube placement -Continue ICU management -Continue supportive care -Magnesium and potassium are being replaced Thank you for this consultation Physician Timber Packer note has been reviewed by physician. Signing provider agrees with the documented findings, assessment, and plan of care. Past Medical History Past Medical History: Dementia, Memory Impairment, Thyroid Disorder History of Any Multi-Drug Resistant Organisms: None Reported Past Surgical History: No Surgical Hx Reported Past Psychological History: No Psychological Hx Reported Smoking Status: Never smoker Past Alcohol Use History: None Reported Past Drug Use History: None Reported - Past Family History Mother History Unknown: Yes Father History Unknown: Yes Medications and Allergies Home Medications Medication Instructions Recorded Confirmed Type Albuterol Nebulized [Ventolin 2.5 mg INHALATION RT-Q6H PRN 04/17/21 04/17/21 History Nebulized] Albuterol Sulfate [Ventolin HFA] 2 puff INHALATION RT-Q6H PRN 04/17/21 04/17/21 History Cholecalciferol [Vitamin D3 (25 50 mcg PO DAILY 04/17/21 04/17/21 History Mcg = 1000 Iu)] Divalproex Sodium [Depakote] 500 mg PO BID 04/17/21 04/17/21 History Fluticasone Nasal [place] [Flonase 1 spr EA NOSTRIL DAILY@1400 04/17/21 04/17/21 History Nasal [place]] Levothyroxine Sodium [Synthroid] 100 mcg PO DAILY 04/17/21 04/17/21 History Loperamide [Imodium] 2 mg PO QID PRN 04/17/21 04/17/21 History Melatonin 6 mg PO DAILY@1900 04/17/21 04/17/21 History Siltussin Sa 100mg/5ml 200 - 400 mg PO Q4H PRN MDD 6 DOSES 04/17/21 04/17/21 History clonazePAM [KlonoPIN] 0.5 mg PO BID 04/17/21 04/17/21 History traZODone HCL 150 mg PO HS 04/17/21 04/17/21 History Allergies Allergy/AdvReac Type Severity Reaction Status Date / Time donepezil Allergy Unknown Verified 04/17/21 11:35 Penicillins Allergy Rash/Hives Verified 04/17/21 11:35 Surgical - Exam Vital Signs Temp Pulse Resp BP Pulse Ox 97.0 F L 61 18 179/100 97 04/17/21 10:23 04/17/21 10:23 04/17/21 10:23 04/17/21 10:23 04/17/21 10:23 Results - Labs 04/23/21 03:01 04/23/21 03:01 Abnormal Lab Results - Last 24 Hours (Table) 04/22/21 04/22/21 04/23/21 Range/Units 12:16 17:19 02:28 RBC (3.80-5.40) m/uL Hgb (11.4-16.0) gm/dL Hct (34.0-46.0) % RDW (11.5-15.5) % ABG pCO2 (35-45) mmHg ABG pO2 (83-108) mmHg ABG HCO3 (21-25) mmol/L ABG Total CO2 (19-24) mmol/L ABG O2 Saturation (94-97) % Potassium (3.5-5.1) mmol/L BUN (7-17) mg/dL Glucose (74-99) mg/dL POC Glucose (mg/dL) 146 H 101 H (75-99) mg/dL Magnesium (1.6-2.3) mg/dL AST (14-36) U/L C-Reactive Protein 2.8 H (<1.0) mg/dL Total Protein (6.3-8.2) g/dL Albumin (3.5-5.0) g/dL 04/23/21 04/23/21 04/23/21 Range/Units 02:55 03:01 03:01 RBC 3.10 L (3.80-5.40) m/uL Hgb 10.1 L (11.4-16.0) gm/dL Hct 30.8 L (34.0-46.0) % RDW 15.6 H (11.5-15.5) % ABG pCO2 (35-45) mmHg ABG pO2 (83-108) mmHg ABG HCO3 (21-25) mmol/L ABG Total CO2 (19-24) mmol/L ABG O2 Saturation (94-97) % Potassium 3.4 L (3.5-5.1) mmol/L BUN 22 H (7-17) mg/dL Glucose 112 H (74-99) mg/dL POC Glucose (mg/dL) 105 H (75-99) mg/dL Magnesium 1.2 L (1.6-2.3) mg/dL AST 40 H (14-36) U/L C-Reactive Protein (<1.0) mg/dL Total Protein 6.2 L (6.3-8.2) g/dL Albumin 3.2 L (3.5-5.0) g/dL 04/23/21 Range/Units 03:22 RBC (3.80-5.40) m/uL Hgb (11.4-16.0) gm/dL Hct (34.0-46.0) % RDW (11.5-15.5) % ABG pCO2 49 H (35-45) mmHg ABG pO2 348 H (83-108) mmHg ABG HCO3 30 H (21-25) mmol/L ABG Total CO2 31 H (19-24) mmol/L ABG O2 Saturation 100.0 H (94-97) % Potassium (3.5-5.1) mmol/L BUN (7-17) mg/dL Glucose (74-99) mg/dL POC Glucose (mg/dL) (75-99) mg/dL Magnesium (1.6-2.3) mg/dL AST (14-36) U/L C-Reactive Protein (<1.0) mg/dL Total Protein (6.3-8.2) g/dL Albumin (3.5-5.0) g/dL Microbiology - Last 24 Hours (Table) 04/18/21 00:04 Blood Culture - Preliminary Blood No Growth after 120 hours 04/17/21 14:15 Blood Culture - Preliminary Blood No Growth after 120 hours 04/17/21 14:35 Blood Culture - Preliminary Blood No Growth after 120 hours Diabetes panel 04/23/21 Range/Units 03:01 Sodium 141 (137-145) mmol/L Potassium 3.4 L (3.5-5.1) mmol/L Chloride 106 (98-107) mmol/L Carbon Dioxide 26 (22-30) mmol/L BUN 22 H (7-17) mg/dL Creatinine 0.61 (0.52-1.04) mg/dL Glucose 112 H (74-99) mg/dL Calcium 8.7 (8.4-10.2) mg/dL AST 40 H (14-36) U/L ALT 26 (4-34) U/L Alkaline Phosphatase 79 (38-126) U/L Total Protein 6.2 L (6.3-8.2) g/dL Albumin 3.2 L (3.5-5.0) g/dL Calcium panel 04/23/21 Range/Units 03:01 Calcium 8.7 (8.4-10.2) mg/dL Albumin 3.2 L (3.5-5.0) g/dL Pituitary panel 04/23/21 Range/Units 03:01 Sodium 141 (137-145) mmol/L Potassium 3.4 L (3.5-5.1) mmol/L Chloride 106 (98-107) mmol/L Carbon Dioxide 26 (22-30) mmol/L BUN 22 H (7-17) mg/dL Creatinine 0.61 (0.52-1.04) mg/dL Glucose 112 H (74-99) mg/dL Calcium 8.7 (8.4-10.2) mg/dL Adrenal panel 04/23/21 Range/Units 03:01 Sodium 141 (137-145) mmol/L Potassium 3.4 L (3.5-5.1) mmol/L Chloride 106 (98-107) mmol/L Carbon Dioxide 26 (22-30) mmol/L BUN 22 H (7-17) mg/dL Creatinine 0.61 (0.52-1.04) mg/dL Glucose 112 H (74-99) mg/dL Calcium 8.7 (8.4-10.2) mg/dL Total Bilirubin 0.6 (0.2-1.3) mg/dL AST 40 H (14-36) U/L ALT 26 (4-34) U/L Alkaline Phosphatase 79 (38-126) U/L Total Protein 6.2 L (6.3-8.2) g/dL Albumin 3.2 L (3.5-5.0) g/dL <Dixon Cloud - Last Filed: 04/23/21 13:07> History of Present Illness History of present illness: As above. Patient with learning disability and possible aspiration pneumonia. Legal guardian apparently considering hospice measures. Await determination of extent of care. If desired can proceed with EGD with PEG tube placement. We'll follow. Surgical - Exam Vital Signs Temp Pulse Resp BP Pulse Ox 97.0 F L 61 18 179/100 97 04/17/21 10:23 04/17/21 10:23 04/17/21 10:23 04/17/21 10:23 04/17/21 10:23 Results - Labs 04/23/21 03:01 04/23/21 03:01 Abnormal Lab Results - Last 24 Hours (Table) 04/22/21 04/23/21 04/23/21 Range/Units 17:19 02:28 02:55 RBC (3.80-5.40) m/uL Hgb (11.4-16.0) gm/dL Hct (34.0-46.0) % RDW (11.5-15.5) % ABG pCO2 (35-45) mmHg ABG pO2 (83-108) mmHg ABG HCO3 (21-25) mmol/L ABG Total CO2 (19-24) mmol/L ABG O2 Saturation (94-97) % Potassium (3.5-5.1) mmol/L BUN (7-17) mg/dL Glucose (74-99) mg/dL POC Glucose (mg/dL) 101 H 105 H (75-99) mg/dL Magnesium (1.6-2.3) mg/dL AST (14-36) U/L C-Reactive Protein 2.8 H (<1.0) mg/dL Total Protein (6.3-8.2) g/dL Albumin (3.5-5.0) g/dL 04/23/21 04/23/21 04/23/21 Range/Units 03:01 03:01 03:22 RBC 3.10 L (3.80-5.40) m/uL Hgb 10.1 L (11.4-16.0) gm/dL Hct 30.8 L (34.0-46.0) % RDW 15.6 H (11.5-15.5) % ABG pCO2 49 H (35-45) mmHg ABG pO2 348 H (83-108) mmHg ABG HCO3 30 H (21-25) mmol/L ABG Total CO2 31 H (19-24) mmol/L ABG O2 Saturation 100.0 H (94-97) % Potassium 3.4 L (3.5-5.1) mmol/L BUN 22 H (7-17) mg/dL Glucose 112 H (74-99) mg/dL POC Glucose (mg/dL) (75-99) mg/dL Magnesium 1.2 L (1.6-2.3) mg/dL AST 40 H (14-36) U/L C-Reactive Protein (<1.0) mg/dL Total Protein 6.2 L (6.3-8.2) g/dL Albumin 3.2 L (3.5-5.0) g/dL Microbiology - Last 24 Hours (Table) 04/18/21 00:04 Blood Culture - Preliminary Blood No Growth after 120 hours 04/17/21 14:15 Blood Culture - Preliminary Blood No Growth after 120 hours 04/17/21 14:35 Blood Culture - Preliminary Blood No Growth after 120 hours Diabetes panel 04/23/21 Range/Units 03:01 Sodium 141 (137-145) mmol/L Potassium 3.4 L (3.5-5.1) mmol/L Chloride 106 (98-107) mmol/L Carbon Dioxide 26 (22-30) mmol/L BUN 22 H (7-17) mg/dL Creatinine 0.61 (0.52-1.04) mg/dL Glucose 112 H (74-99) mg/dL Calcium 8.7 (8.4-10.2) mg/dL AST 40 H (14-36) U/L ALT 26 (4-34) U/L Alkaline Phosphatase 79 (38-126) U/L Total Protein 6.2 L (6.3-8.2) g/dL Albumin 3.2 L (3.5-5.0) g/dL Calcium panel 04/23/21 Range/Units 03:01 Calcium 8.7 (8.4-10.2) mg/dL Albumin 3.2 L (3.5-5.0) g/dL Pituitary panel 04/23/21 Range/Units 03:01 Sodium 141 (137-145) mmol/L Potassium 3.4 L (3.5-5.1) mmol/L Chloride 106 (98-107) mmol/L Carbon Dioxide 26 (22-30) mmol/L BUN 22 H (7-17) mg/dL Creatinine 0.61 (0.52-1.04) mg/dL Glucose 112 H (74-99) mg/dL Calcium 8.7 (8.4-10.2) mg/dL Adrenal panel 04/23/21 Range/Units 03:01 Sodium 141 (137-145) mmol/L Potassium 3.4 L (3.5-5.1) mmol/L Chloride 106 (98-107) mmol/L Carbon Dioxide 26 (22-30) mmol/L BUN 22 H (7-17) mg/dL Creatinine 0.61 (0.52-1.04) mg/dL Glucose 112 H (74-99) mg/dL Calcium 8.7 (8.4-10.2) mg/dL Total Bilirubin 0.6 (0.2-1.3) mg/dL AST 40 H (14-36) U/L ALT 26 (4-34) U/L Alkaline Phosphatase 79 (38-126) U/L Total Protein 6.2 L (6.3-8.2) g/dL Albumin 3.2 L (3.5-5.0) g/dL
--- NOTE | 2021-04-23 15:06 | P.CNNES ---
History of Present Illness Consult date: 04/23/21 Requesting physician: Bisi Agee Reason for Consult: seizure History of Present Illness: This is a 76-year-old woman with medical history of severe developmental delay, nonverbal at baseline, hypothyroidism who presented to the emergency department on your 04/17/2021 for drowsiness. History is obtained from medical record and patient's ICU nurse. It is reported by the ED the patient has congestion and was placed on antibiotic. Neurology is consulted for seizure. It seems that overnights on 04/22/2021 the patient developed the seizure activity as a result of the upper respiratory distress requiring intubation and mechanical ventilation at which she had to be transferred to ICU. It is documented that patient was given Ativan to abort seizure event but patient remained hypoxic with agonal breathing and minimally responsive but no description of seizure. She was on the propofol 40mcg/kg/min. per the ICU team the decreasing to 35mcg/kg/min and the patient has not had any further seizure-like activity noted . Seems that during the hospital the patient was not getting her home dose of Depakote by rather the primary placed her on Keppra 500 mg every 12 hours IV. It is unsure whether the patient has a history of seizures or not. And unsure if the Depakote is being used at for her seizures or at as mood stabilizer or combination. As a result of her seizure overnight patient was given an additional Keppra 1000 mg once. Per the patient's nurse he stated that he was notified as a sign out that the patient has history of cerebral palsy but I did not see any documentation of that. Patient home medication is melatonin 6 mg daily, Depakote 500 mg 1 tablet twice a day, Klonopin 0.5 mg 1 tablet twice a day, vitamin D3, trazodone, Synthroid. Most recent labs is the the white blood cells 5.2 thousand which is within normal limits. Hemoglobin is 10.1 with slightly low. Most recent sodium is 141, creatinine is a 0.61, calcium is 8.7, AST of 40 and ALT of 26 which is within normal limits. TSH is 2.3 which is within normal limits. CT of the head on 04/17/2021 is reported as carpal consideration for normal pressure hydrocephalus is recommended. Mild chronic-appearing periventricular white matter ischemic type changes. I personally reviewed the CT of the head and I felt the ventricles were dilated for the atrophy especially the occipital lateral ventricles bilaterally. 2-D echo was reported as left ventricle size is normal. Ejection fraction of 55-60%. Moderate to severe mitral regurgitation that. Moderate tricuspid regurgitation. Moderate pulmonary hypertension. Left atrium is severely dilated that. Urinalysis is negative for urinary tract infection. Urine tox screen is nondetected and the valproic acid is 56.9 which is considered therapeutic but low therapeutic level. Red virus PCR was not detected. Review of Systems Review of system is limited because of the patient condition (she continues to be intubated and is on sedation) but the per positive and negative as per HPI. Past Medical History Past Medical History: Dementia, Memory Impairment, Thyroid Disorder History of Any Multi-Drug Resistant Organisms: None Reported Past Surgical History: No Surgical Hx Reported Past Psychological History: No Psychological Hx Reported Smoking Status: Never smoker Past Alcohol Use History: None Reported Past Drug Use History: None Reported - Past Family History Mother History Unknown: Yes Father History Unknown: Yes Medications and Allergies Home Medications Medication Instructions Recorded Confirmed Type Albuterol Nebulized [Ventolin 2.5 mg INHALATION RT-Q6H PRN 04/17/21 04/17/21 History Nebulized] Albuterol Sulfate [Ventolin HFA] 2 puff INHALATION RT-Q6H PRN 04/17/21 04/17/21 History Cholecalciferol [Vitamin D3 (25 50 mcg PO DAILY 04/17/21 04/17/21 History Mcg = 1000 Iu)] Divalproex Sodium [Depakote] 500 mg PO BID 04/17/21 04/17/21 History Fluticasone Nasal [place] [Flonase 1 spr EA NOSTRIL DAILY@1400 04/17/21 04/17/21 History Nasal [place]] Levothyroxine Sodium [Synthroid] 100 mcg PO DAILY 04/17/21 04/17/21 History Loperamide [Imodium] 2 mg PO QID PRN 04/17/21 04/17/21 History Melatonin 6 mg PO DAILY@1900 04/17/21 04/17/21 History Siltussin Sa 100mg/5ml 200 - 400 mg PO Q4H PRN MDD 6 DOSES 04/17/21 04/17/21 History clonazePAM [KlonoPIN] 0.5 mg PO BID 04/17/21 04/17/21 History traZODone HCL 150 mg PO HS 04/17/21 04/17/21 History Allergies Allergy/AdvReac Type Severity Reaction Status Date / Time donepezil Allergy Unknown Verified 04/17/21 11:35 Penicillins Allergy Rash/Hives Verified 04/17/21 11:35 Physical Examination - Vital Signs Vital Signs: Vital Signs Temp Pulse Pulse Resp BP BP Pulse Ox 04/23/21 12:30 47 L 04/23/21 12:19 47 L 04/23/21 09:00 46 L 18 143/66 98 04/23/21 08:28 56 L 04/23/21 08:18 56 L 04/23/21 08:00 98 F 48 L 18 133/68 100 04/23/21 07:00 45 L 18 133/68 100 04/23/21 06:00 41 L 18 133/65 100 04/23/21 05:00 43 L 18 122/67 97 04/23/21 04:00 99.5 F 49 L 18 132/67 99 04/23/21 03:00 61 19 99 04/23/21 02:53 23 04/23/21 02:26 100 179/77 04/23/21 02:00 55 L 18 04/23/21 00:00 99.6 F 68 18 148/52 94 L 04/22/21 20:00 69 18 04/22/21 18:56 102.9 F H 04/22/21 16:00 103.1 F H 65 18 198/71 98 04/22/21 14:00 75 18 Intake and Output 04/22/21 04/23/21 04/23/21 22:59 06:59 14:59 Intake Total 340.844 220 Output Total 40 80 130 Balance -40 260.844 90 Intake: IV 300 220 0.9 20 Magnesium Sulfate-D5w Pmx 100 100 1 gm In Dextrose/Water 1 100ml.bag @ 100 mls/hr IVPB Q1H [facility] Rx#: [id number] levETIRAcetam IV 1,000 mg 100 100 In Saline 1 100ml.bag @ 400 mls/hr IVPB ONCE ONE Rx#:[id number] metroNIDAZOLE-NS PMX 500 100 mg In Saline 1 100ml.bag @ 100 mls/hr IVPB Q8H [facility] Rx#:[id number] Intake, IV Titration 40.844 Amount propofoL 1,000 mg In 40.844 Empty Bag 1 bag @ Titrate IV .Q0M [facility] Rx#: [id number] Output: Urine 40 80 130 Other: Voiding Method Indwelling Catheter Indwelling Catheter Indwelling Catheter Weight 69.2 kg GENERAL: The patient is lying in bed and does not seem in acute distress. CHEST: The heart rate is regular rate rhythm. No murmurs to auscultation. No carotid bruit bilaterally. LUNG: Clear to auscultation bilaterally no wheezing noted throughout. Not labored breathing. Is intubated and on ventilator. ABDOMEN/GI: Bowel sounds present in all 4 quadrants. No tenderness to palpation throughout. NEUROLOGICAL: Limited because of her condition. Currently on IV Propofol 35mcg/kg/min. Higher mental function: The patient is comatose. GCS 7 (E1, VT1, M5). Not opening eyes, verbalizing or following commands. Cranial nerves: I had to manually open her eyes. The right eye is midline and left is looking slightly downward. The pupils are round, equal (2mm) and reactive to light. No facial weakness. Is breathing at the vent (A/C 18). +gag reflex. Motor: The strength is withdrawls all extremities to painful stimuli symetrically. Normal tone and bulk. Cerebellum: Could not assess. Sensation: Could not assess light touch but seems to have normal to painful stimuli. Reflexes (right/left): 1+ throughout.. Plantars are mute bilaterally. Results - Laboratory Findings CBC and BMP: 04/23/21 03:01 04/23/21 03:01 Abnormal Lab Findings: Abnormal Labs 04/17/21 04/17/21 04/17/21 11:37 11:37 11:37 WBC 2.9 L RBC Hgb Hct RDW Plt Count 110 L Nucleated RBCs 2 H ABG pCO2 ABG pO2 ABG HCO3 ABG Total CO2 ABG O2 Saturation Sodium Potassium 5.3 H Chloride 92 L Carbon Dioxide 38 H BUN 22 H Glucose 104 H POC Glucose (mg/dL) Magnesium Total Bilirubin 0.1 L AST ALT 38 H Troponin I 0.059 H* C-Reactive Protein Total Protein Albumin Urine Blood Urine RBC Urine Bacteria Hyaline Casts Urine Mucus 04/17/21 04/17/21 04/17/21 12:26 16:25 19:56 WBC RBC Hgb Hct RDW Plt Count Nucleated RBCs ABG pCO2 ABG pO2 ABG HCO3 ABG Total CO2 ABG O2 Saturation Sodium Potassium Chloride Carbon Dioxide BUN Glucose POC Glucose (mg/dL) Magnesium Total Bilirubin AST ALT Troponin I 0.059 H* 0.054 H* C-Reactive Protein Total Protein Albumin Urine Blood Trace H Urine RBC Urine Bacteria Hyaline Casts Urine Mucus Rare H 04/17/21 04/18/21 04/18/21 22:00 08:37 08:37 WBC RBC 3.40 L Hgb 11.0 L Hct 33.2 L RDW 15.6 H Plt Count 95 L Nucleated RBCs ABG pCO2 ABG pO2 ABG HCO3 ABG Total CO2 ABG O2 Saturation Sodium Potassium Chloride Carbon Dioxide BUN Glucose POC Glucose (mg/dL) Magnesium Total Bilirubin AST ALT Troponin I C-Reactive Protein 2.8 H Total Protein Albumin Urine Blood Trace H Urine RBC 9 H Urine Bacteria Rare H Hyaline Casts 5 H Urine Mucus Rare H 04/19/21 04/20/21 04/20/21 17:00 06:15 10:51 WBC RBC 3.18 L Hgb 10.6 L Hct 30.8 L RDW Plt Count 85 L Nucleated RBCs ABG pCO2 ABG pO2 ABG HCO3 ABG Total CO2 ABG O2 Saturation Sodium Potassium Chloride Carbon Dioxide BUN Glucose POC Glucose (mg/dL) 73 L 74 L Magnesium Total Bilirubin AST ALT Troponin I C-Reactive Protein Total Protein Albumin Urine Blood Urine RBC Urine Bacteria Hyaline Casts Urine Mucus 04/20/21 04/20/21 04/20/21 10:51 11:48 16:48 WBC RBC Hgb Hct RDW Plt Count Nucleated RBCs ABG pCO2 ABG pO2 ABG HCO3 ABG Total CO2 ABG O2 Saturation Sodium 135 L Potassium 5.5 H Chloride Carbon Dioxide BUN Glucose 57 L POC Glucose (mg/dL) 66 L 66 L Magnesium Total Bilirubin AST 42 H ALT Troponin I C-Reactive Protein Total Protein 6.2 L Albumin 3.2 L Urine Blood Urine RBC Urine Bacteria Hyaline Casts Urine Mucus 04/20/21 04/21/21 04/21/21 17:04 16:42 18:09 WBC RBC Hgb Hct RDW Plt Count Nucleated RBCs ABG pCO2 ABG pO2 ABG HCO3 ABG Total CO2 ABG O2 Saturation Sodium Potassium Chloride Carbon Dioxide BUN Glucose POC Glucose (mg/dL) 247 H 66 L 216 H Magnesium Total Bilirubin AST ALT Troponin I C-Reactive Protein Total Protein Albumin Urine Blood Urine RBC Urine Bacteria Hyaline Casts Urine Mucus 04/21/21 04/22/21 04/22/21 20:00 06:08 11:41 WBC RBC Hgb Hct RDW Plt Count Nucleated RBCs ABG pCO2 ABG pO2 ABG HCO3 ABG Total CO2 ABG O2 Saturation Sodium Potassium Chloride Carbon Dioxide BUN Glucose POC Glucose (mg/dL) 103 H 71 L 67 L Magnesium Total Bilirubin AST ALT Troponin I C-Reactive Protein Total Protein Albumin Urine Blood Urine RBC Urine Bacteria Hyaline Casts Urine Mucus 04/22/21 04/22/21 04/23/21 12:16 17:19 02:28 WBC RBC Hgb Hct RDW Plt Count Nucleated RBCs ABG pCO2 ABG pO2 ABG HCO3 ABG Total CO2 ABG O2 Saturation Sodium Potassium Chloride Carbon Dioxide BUN Glucose POC Glucose (mg/dL) 146 H 101 H Magnesium Total Bilirubin AST ALT Troponin I C-Reactive Protein 2.8 H Total Protein Albumin Urine Blood Urine RBC Urine Bacteria Hyaline Casts Urine Mucus 04/23/21 04/23/21 04/23/21 02:55 03:01 03:01 WBC RBC 3.10 L Hgb 10.1 L Hct 30.8 L RDW 15.6 H Plt Count Nucleated RBCs ABG pCO2 ABG pO2 ABG HCO3 ABG Total CO2 ABG O2 Saturation Sodium Potassium 3.4 L Chloride Carbon Dioxide BUN 22 H Glucose 112 H POC Glucose (mg/dL) 105 H Magnesium 1.2 L Total Bilirubin AST 40 H ALT Troponin I C-Reactive Protein Total Protein 6.2 L Albumin 3.2 L Urine Blood Urine RBC Urine Bacteria Hyaline Casts Urine Mucus 04/23/21 03:22 WBC RBC Hgb Hct RDW Plt Count Nucleated RBCs ABG pCO2 49 H ABG pO2 348 H ABG HCO3 30 H ABG Total CO2 31 H ABG O2 Saturation 100.0 H Sodium Potassium Chloride Carbon Dioxide BUN Glucose POC Glucose (mg/dL) Magnesium Total Bilirubin AST ALT Troponin I C-Reactive Protein Total Protein Albumin Urine Blood Urine RBC Urine Bacteria Hyaline Casts Urine Mucus Assessment and Plan Assessment: Seizure (She was on Depakote as home dose but was changed to Keppra by her Primary). Unsure if she has history of seizure or not (unsure if Depakote was uses as seizure medication at home) Severe developmental delay Acute hypoxic respiratory for secondary due to aspiration pneumonia requiring intubation mechanical ventilation following seizure activity. Hypothyroidism Troponin leak Diminished oral intake/failed to thrive Plan: * Increased the Keppra from 500 mg every 12 hours to 750 mg every 12 hours. * An EEG is ordered by the ICU team is pending. * Every 1 hour neuro checks. * Placed on seizure precaution as well seizure pads. * We'll defer the rest of the medical management to the ICU/primary team. * Upon discharge the patient needs to follow-up with a neurologist within 1-2 weeks as an outpatient. The plan is discussed with the patient's nurse. Thank you for the consultation UPDATE: I stopped Keppra and started the patient on Depakote 750mg IV every 12 hours (I stopped Keppra which can worsens mood/behavior and started on her Depakote (was taking 500mg bid at home but increased it because episode of seizure). Ordered MRI Brain to rule out any intracranial lesion. Consulted anesthesiology team and Ordered Lumbar puncture to rule out any WELDER 2ND SHIFT infection. Adalberto Hayward M.D. Neuro-hospitalist Time with Patient: Greater than 30
[2021-04-23] MEDS: MIDAZOLAM HCL 50 MG in SODIUM CHLORIDE 0.9% 40 ML IV SCH (16:24)
--- NOTE | 2021-04-23 16:42 | MISC ---
MISCELLANOUS REPORT QUERY: Unable to determine. MMODL / IJN: [id number] /
--- NOTE | 2021-04-23 16:48 | EEG ---
ELECTROENCEPHALOGRAM REPORT DATE OF SERVICE: 04/23/2021. CLINICAL HISTORY: This is a 76-year-old woman with a history of developmental delay who had a recent seizure. The video EEG is obtained to evaluate for seizure epileptiform activity. RELEVANT MEDICATION: Keppra and IV propofol. EEG TYPE: A routine 21-channel EEG is performed with video using the 10/20 electrode placement system. DESCRIPTION: The patient is intubated and on a ventilator. The background consists of low to moderate voltage of nonrhythmic 3 to 4 hertz delta activity and sometime intermixed with theta activity. There is no sleep architecture seen. Interictal and ictal. There appear to be sharp and slow waves that are moderate to high voltage maximum over the right frontal derivatives and occurring about every 2-4 seconds and seems suggestive of Lateralized peroidic discharge. There is no evolution to seizure. ACTIVATION PROCEDURE: Photic stimulation did not evoke a posterior driving response. There is no abnormality during the photic stimulation. Hyperventilation is not performed. CLINICAL INTERPRETATION: This is an abnormal routine EEG. The background slowing is suggestive of severe encephalopathy. The lateralized periodic discharges (LPDs) maximum over the right frontal derivatives are sign of focal cortical irritability. There are no seizure seen on the EEG. Clinical correlation is recommended. MMODL / IJN: [id number] / RYNE
[2021-04-23 17:43] LABS: Glucose,Whole Blood 95 mg/dL (75-99)
[2021-04-23] MEDS: VALPROATE SODIUM 750 MG in SODIUM CHLORIDE 0.9% 50 ML IVPB SCH (18:22)
--- NOTE | 2021-04-23 18:36 | PN ---
PROGRESS NOTE DATE OF SERVICE: 04/23/2021 REASON FOR FOLLOWUP: Pneumonia. INTERVAL HISTORY: The patient did have seizure activity. Patient ended up getting intubated and transferred to ICU. The patient is currently hemodynamically stable, not on any pressor support. No notice of any significant purulent secretions through the ET. No vomiting or diarrhea reported by the nursing staff. PHYSICAL EXAMINATION: Blood pressure 153/69, pulse of 41, temperature 98. She is 98% on 50% FiO2. GENERAL DESCRIPTION: General description is an elderly female intubated on the vent. RESPIRATORY SYSTEM: Unlabored breathing. Decreased intensity of breath sounds. No wheeze. HEART: S1, S2. Regular rate and rhythm. ABDOMEN: Soft. No tenderness. LABS: Hemoglobin is 10.1, white count 5.2. BUN of 22, creatinine 0.61. Blood culture has been negative. DIAGNOSTIC IMPRESSION AND PLAN: Patient with acute respiratory failure, multifactorial, in this patient who seemed to have seizure activity concerning for possible pneumonia. Sputum has been requested. Continue Rocephin and monitor clinical course closely. MMODL / IJN: [id number] /
--- NOTE | 2021-04-23 19:26 | PN ---
PROGRESS NOTE CHIEF COMPLAINT: Mental status changes. HISTORY OF PRESENT ILLNESS: This lady remains stable. There has been no interval change. She failed the swallow evaluation once again and decision will be made relative to whether not a PEG tube is placed. Guardian is being contacted. PHYSICAL EXAMINATION: Chest is clear. Vital signs normal. The cardiac exam is normal. Abdomen is soft. IMPRESSION: 1. Mental status changes. 2. General debility. 3. Mental incapacitation. 4. Inability to swallow. PLAN: Look into whether not a guardian will want to move forward with a PEG tube. MMODL / IJN: [id number] /
--- NOTE | 2021-04-23 19:26 | PN ---
PROGRESS NOTE DATE OF SERVICE: 04/21/2021 CHIEF COMPLAINT: Mental status changes, general debility and dysphagia. HISTORY OF PRESENT ILLNESS: This lady is currently fairly stable. Tomorrow we will be reassessing her ability to swallow. Other than that, there has been no interval change. PHYSICAL EXAMINATION: Vital signs are normal. Chest is clear. Cardiac exam is normal. Abdomen is soft and nontender without any masses. IMPRESSION: 1. Mental status changes. 2. Mental incapacitation. 3. Cerebral palsy. 4. Seizure disorder. 5. Dysphagia. PLAN: No change in her management at this time and she will have another swallow evaluation tomorrow. MMODL / IJN: [id number] /
--- NOTE | 2021-04-23 19:29 | PN ---
PROGRESS NOTE DATE OF SERVICE: 04/23/2021 CHIEF COMPLAINT: Mental debility and mental status changes. HISTORY OF PRESENT ILLNESS: In the middle of the night this lady apparently had a seizure and her respiratory rate dropped. A-team was called and she was intubated and taken to ICU. It was thought that this was probably related to seizure activity. PHYSICAL EXAMINATION: At the present time her blood pressure is normal and her chest is clear on the ventilator. Cardiac exam is normal. IMPRESSION: 1. Respiratory arrest probably secondary to grand mal seizure with postictal depression. 2. Mental debility. PLAN: Stabilize in ICU and wait to see if she can be taken off the ventilator. MMODL / IJN: [id number] /
[2021-04-23] MEDS ORDERED: levETIRAcetam IV 750 MG in SODIUM CHLORIDE 0.9% 100 ML IVPB SCH (21:00)
[2021-04-23 22:15] LABS: Glucose,Whole Blood 89 mg/dL (75-99)
[2021-04-24] MEDS: VALPROATE SODIUM 750 MG in SODIUM CHLORIDE 0.9% 50 ML IVPB SCH ×3 (02:57→20:07)
[2021-04-24 03:16] LABS: Glucose,Whole Blood 76 mg/dL (75-99)
[2021-04-24] MEDS: metroNIDAZOLE-NS PMX 500 MG in SALINE 1 100ML.BAG IVPB SCH ×3 (03:55→19:33)
[2021-04-24 04:44] LABS: Basophils % (A) 0 %; Eosinophils % (A) 1 %; HCT 28.5 % (34.0-46.0); HGB 9.7 gm/dL (11.4-16.0); Lymphocytes # (A) 1.2 k/uL (1.0-4.8); Lymphocytes % (A) 42 %; MCH 32.7 pg (25.0-35.0); MCHC 33.9 g/dL (31.0-37.0); MCV 96.5 fL (80.0-100.0); Mean Platelet Volume 10.6; Monocytes # (A) 0.3 k/uL (0-1.0); Monocytes % (A) 10 %; Neutrophils # (A) 1.3 k/uL (1.3-7.7); Neutrophils % (A) 44 %; Platelet Count 156 k/uL (150-450); RBC 2.96 m/uL (3.80-5.40); RDW 15.3 % (11.5-15.5); WBC 2.8 k/uL (3.8-10.6)
[2021-04-24 05:00] LABS: African American GFR (CKD) >90 (>60 ml/min/1.73 sqM); Anion Gap 8 mmol/L; Blood Urea Nitrogen 24 mg/dL (7-17); Calcium 8.5 mg/dL (8.4-10.2); Carbon Dioxide 26 mmol/L (22-30); Chloride 108 mmol/L (98-107); Glucose 80 mg/dL (74-99); Magnesium 1.7 mg/dL (1.6-2.3); Non-African American GFR(CKD) >90 (>60 ml/min/1.73 sqM); Potassium 2.9 mmol/L (3.5-5.1); Sodium 142 mmol/L (137-145)
[2021-04-24] MEDS: MIDAZOLAM HCL 50 MG in SODIUM CHLORIDE 0.9% 40 ML IV SCH ×5 (05:00→20:03)
[2021-04-24 05:03] LABS: ABG Base Excess 7.4 mmol/L; ABG HCO3 29 mmol/L (21-25); ABG Oxygen Saturation 96.2 % (94-97); ABG PCO2 31 mmHg (35-45); ABG PO2 71 mmHg (83-108); ABG TCO2 30 mmol/L (19-24); Allen Test Performed? Yes
[2021-04-24 05:07] LABS: ABG PH 7.59 (7.35-7.45)
[2021-04-24] MEDS: MAGNESIUM SULFATE-D5W PMX 1 GM in DEXTROSE/WATER 1 100ML.BAG IVPB SCH ×2 (05:56→07:32)
[2021-04-24] MEDS: POTASSIUM BICARBONATE/CIT AC 20 MEQ TABLET.EFF NG-TUBE SCH ×3 (05:58→08:37)
--- NOTE | 2021-04-24 06:41 | XR ---
EXAMINATION TYPE: XR chest 1V portable DATE OF EXAM: 04/24/2021 CLINICAL HISTORY: Difficulty breathing progress study. TECHNIQUE: Single AP portable semiupright view of the chest is obtained. COMPARISON: Chest x-ray from one day earlier and older studies. FINDINGS: Stable endotracheal and orogastric tubes. Patient more rotated to the right making evaluation suboptimal. Stable mild cardiomegaly with atheros clerotic thoracic aorta. Persistent left basilar opacity and patchy right basilar opacity. Upper lung s remain clear. Degenerative changes left shoulder redemonstrated. Underlying rotary scoliosis noted. IMPRESSION: Persistent left greater than right bibasilar acute infiltrate and atelectasis. Persistent small left pleural effusion. No significant change from one day earlier.
[2021-04-24 06:59] LABS: Glucose,Whole Blood 92 mg/dL (75-99)
--- NOTE | 2021-04-24 07:47 | P.PN ---
Subjective Progress Note Date: 04/24/21 The patient is seen at beside and continues to be intubated, ventilator and on sedation. Currently on Versed 12mg/hr (per nurse her vitals were unstable with Propofol). Per nurse no further seizure-like activity overnight or today. Objective - Vital Signs Vital signs: Vital Signs Temp 97.7 F 04/24/21 06:00 Pulse 48 L 04/24/21 07:00 Resp 14 04/24/21 07:00 BP 126/59 04/24/21 07:00 Pulse Ox 99 04/24/21 07:00 Intake & Output 04/23/21 04/24/21 04/24/21 18:59 06:59 18:59 Intake Total 510.25 1299.933 100 Output Total 390 110 10 Balance 120.25 1189.933 90 Weight 72 kg Intake: IV 500 1260 100 0.9 200 910 100 Magnesium Sulfate-D5w Pmx 200 100 1 gm In Dextrose/Water 1 100ml.bag @ 100 mls/hr IVPB Q1H [facility] Rx#: [id number] Valproate Sodium 750 mg 50 In Sodium Chloride 0.9% 50 ml @ 50 mls/hr IVPB Q12HR [facility] Rx#:[id number] levETIRAcetam IV 1,000 mg 100 In Saline 1 100ml.bag @ 400 mls/hr IVPB ONCE ONE Rx#:[id number] metroNIDAZOLE-NS PMX 500 200 mg In Saline 1 100ml.bag @ 100 mls/hr IVPB Q8H [facility] Rx#:[id number] Intake, IV Titration 10.25 39.933 Amount Midazolam HCl 50 mg In 10.25 39.933 Sodium Chloride 0.9% 40 ml @ 3 MG/HR 3 mls/hr IV .[id number] [facility] Rx#: [id number] Output: Urine 390 110 10 Other: Voiding Method Indwelling Catheter Indwelling Catheter - Exam GENERAL: The patient is lying in bed and does not seem in acute distress. LUNG: Clear to auscultation bilaterally no wheezing noted throughout. Not labored breathing. Is intubated and on ventilator. NEUROLOGICAL: Limited because of her condition. Currently on IV Versed 12mg/hr. Higher mental function: The patient is comatose. GCS 8 (E2, VT1, M5). Not overbalizing or following commands. Cranial nerves: I had to manually open her eyes. The right eye is midline and left is looking slightly downward. The pupils are round, equal (2mm) and reactive to light. +ve corneal reflex bilaterally. No facial weakness. Is breathing over the vent. +gag reflex. Motor: The strength is withdrawls all extremities to painful stimuli symetrically. Normal tone and bulk. Cerebellum: Could not assess. Sensation: Could not assess light touch but seems to have normal to painful stimuli. Reflexes (right/left): 1+ throughout.. Plantars are mute bilaterally. WORK-UP: CT of the head on 04/17/2021 is reported as carpal consideration for normal pressure hydrocephalus is recommended. Mild chronic-appearing periventricular white matter ischemic type changes. I personally reviewed the CT of the head and I felt the ventricles were dilated for the atrophy especially the occipital lateral ventricles bilaterally. Routine EEG on 04/23/21: Is abnormal routine EEG. The background slowing suggestive of severe encephalopathy. The lateralized periodic discharges (LPDs) maximum over the right frontal derivatives are sign of focal cortical irritability. There are no seizure seen on the EEG. TSH is 2.3 which is within normal limits. 2-D echo was reported as left ventricle size is normal. Ejection fraction of 55-60%. Moderate to severe mitral regurgitation that. Moderate tricuspid regurgitation. Moderate pulmonary hypertension. Left atrium is severely dilated that. Urinalysis is negative for urinary tract infection. Urine tox screen is nondetected and the valproic acid is 56.9 which is considered therapeutic but low therapeutic level. Red virus PCR was not detected. - Labs CBC & Chem 7: 04/24/21 04:13 04/24/21 13:35 Labs: Abnormal Lab Results - Last 24 Hours (Table) 04/24/21 04/24/21 04/24/21 Range/Units 04:13 04:13 05:00 WBC 2.8 L (3.8-10.6) k/uL RBC 2.96 L (3.80-5.40) m/uL Hgb 9.7 L (11.4-16.0) gm/dL Hct 28.5 L (34.0-46.0) % ABG pH 7.59 H* (7.35-7.45) ABG pCO2 31 L (35-45) mmHg ABG pO2 71 L (83-108) mmHg ABG HCO3 29 H (21-25) mmol/L ABG Total CO2 30 H (19-24) mmol/L Potassium 2.9 L (3.5-5.1) mmol/L Chloride 108 H (98-107) mmol/L BUN 24 H (7-17) mg/dL Microbiology - Last 24 Hours (Table) 04/18/21 00:04 Blood Culture - Final Blood No Growth after 144 hours 04/22/21 17:19 Blood Culture - Preliminary Blood No Growth after 24 hours 04/17/21 14:15 Blood Culture - Final Blood No Growth after 144 hours 04/17/21 14:35 Blood Culture - Final Blood No Growth after 144 hours Assessment and Plan Assessment: * Seizure (She was on Depakote as home dose but was changed to Keppra by her Primary). Unsure if she has history of seizure or not (unsure if Depakote was uses as seizure medication at home) * Altered mental status due to above and component to due medication effect (Versed). Rule out underlying meningoencephalitis. * Severe developmental delay * Acute hypoxic respiratory for secondary due to aspiration pneumonia requiring intubation mechanical ventilation following seizure activity. * Hypothyroidism * Troponin leak * Diminished oral intake/failed to thrive Plan: * Continue IV Depakote 750mg every 12 hours. * Because of the focal irritability seen on EEG (maximum over the right frontal), will get a repeat routine EEG. Ordered MRI Brain (but cannot be done at this time since intubated and on vent). * Consulted anesthesiology for lumbar puncture to rule out any STATE EPIDEMIOLOGIST infection. * Infection disease team is on board * Every 1 hour neuro checks. * on seizure precaution as well seizure pads. * We'll defer the rest of the medical management to the ICU/primary team. * Upon discharge the patient needs to follow-up with a neurologist within 1-2 weeks as an outpatient. The plan is discussed with the patient's nurse and ICU attending. UPDATE: Was updated by the patient nurse who with the public guardian as well as the unloader operator contacted the nurse and notified that her that the ad they are leading towards hospice and they want the patient to get lumbar puncture or any the intervention. They don't even want to proceed with MRI of the brain. Adalberto Hayward M.D. Neuro-hospitalist Time with Patient: Less than 30
[2021-04-24] MEDS: ALBUTEROL NEBULIZED 2.5 MG/3 ML INHALATION SCH ×4 (08:26→19:29)
[2021-04-24] MEDS: ASPIRIN 81 MG PO SCH (08:37)
[2021-04-24] MEDS: CHLORHEXIDINE GLUCONATE 15 ML CUP MUCOUS MEM SCH ×2 (08:37→20:07)
[2021-04-24] MEDS: LEVOTHYROXINE IVP 100 MCG/5 ML VIAL IV SCH (09:51)
--- NOTE | 2021-04-24 10:41 | P.PN ---
<Wanda Eng - Last Filed: 04/24/21 10:32> Subjective Progress Note Date: 04/24/21 CHIEF COMPLAINT: Shortness of breath HISTORY OF PRESENT ILLNESS: Patient remains in the ICU intubated and sedated. No further seizure activity reported. She is followed by neurology they have ordered a lumbar puncture to be done to rule out [employer] infection. She's on antibiotics for possible aspiration pneumonia. Patient's guardian has a meeting with the court today to decide patient's CODE STATUS and if he wanted further procedures completed. Afebrile WBC 2.8 hemoglobin 9.7 platelets 156 potassium 2.9 creatinine 0.53 magnesium 1.7 PHYSICAL EXAM: VITAL SIGNS: Reviewed. GENERAL: Well-developed in no acute distress. HEENT: No sclera icterus. Extraocular movements grossly intact. Moist buccal mucosa. Head is atraumatic, normocephalic. ABDOMEN: Soft. Nondistended. Nontender. NEUROLOGIC: Intubated and sedated ASSESSMENT: 1. Aspiration pneumonia 2. Moderate protein calorie malnutrition 3. Developmental delay PLAN: -Legal guardian has meeting with court today. Awaiting their decision regarding hospice measures or if they want any further procedures to be completed. If desired can proceed with EGD with PEG tube placement. -Potassium being replaced Physician Manager [employer] note has been reviewed by physician. Signing provider agrees with the documented findings, assessment, and plan of care. Objective - Vital Signs Vital signs: Vital Signs Temp 97.7 F 04/24/21 06:00 Pulse 50 L 04/24/21 08:37 Resp 14 04/24/21 07:00 BP 126/59 04/24/21 07:00 Pulse Ox 99 04/24/21 07:00 Intake & Output 04/23/21 04/24/21 04/24/21 18:59 06:59 18:59 Intake Total 510.25 1299.933 141.6 Output Total 390 110 10 Balance 120.25 1189.933 131.6 Weight 72 kg Intake: IV 500 1260 100 0.9 200 910 100 Magnesium Sulfate-D5w Pmx 200 100 1 gm In Dextrose/Water 1 100ml.bag @ 100 mls/hr IVPB Q1H [facility] Rx#: [id number] Valproate Sodium 750 mg 50 In Sodium Chloride 0.9% 50 ml @ 50 mls/hr IVPB Q12HR [facility] Rx#:[id number] levETIRAcetam IV 1,000 mg 100 In Saline 1 100ml.bag @ 400 mls/hr IVPB ONCE ONE Rx#:[id number] metroNIDAZOLE-NS PMX 500 200 mg In Saline 1 100ml.bag @ 100 mls/hr IVPB Q8H [facility] Rx#:[id number] Intake, IV Titration 10.25 39.933 41.6 Amount Midazolam HCl 50 mg In 10.25 39.933 41.6 Sodium Chloride 0.9% 40 ml @ 3 MG/HR 3 mls/hr IV .[id number] [facility] Rx#: [id number] Output: Urine 390 110 10 Other: Voiding Method Indwelling Catheter Indwelling Catheter - Labs CBC & Chem 7: 04/24/21 04:13 04/24/21 04:13 Labs: Abnormal Lab Results - Last 24 Hours (Table) 04/24/21 04/24/21 04/24/21 Range/Units 04:13 04:13 05:00 WBC 2.8 L (3.8-10.6) k/uL RBC 2.96 L (3.80-5.40) m/uL Hgb 9.7 L (11.4-16.0) gm/dL Hct 28.5 L (34.0-46.0) % ABG pH 7.59 H* (7.35-7.45) ABG pCO2 31 L (35-45) mmHg ABG pO2 71 L (83-108) mmHg ABG HCO3 29 H (21-25) mmol/L ABG Total CO2 30 H (19-24) mmol/L Potassium 2.9 L (3.5-5.1) mmol/L Chloride 108 H (98-107) mmol/L BUN 24 H (7-17) mg/dL Microbiology - Last 24 Hours (Table) 04/18/21 00:04 Blood Culture - Final Blood No Growth after 144 hours 04/22/21 17:19 Blood Culture - Preliminary Blood No Growth after 24 hours 04/17/21 14:15 Blood Culture - Final Blood No Growth after 144 hours 04/17/21 14:35 Blood Culture - Final Blood No Growth after 144 hours <Dixon Cloud - Last Filed: 04/24/21 12:21> Subjective As above. Patient remains on the ventilator. Having an EEG done today. Legal guardian still deciding upon extent of care. We'll follow. Objective - Vital Signs Vital signs: Vital Signs Temp 98.5 F 04/24/21 08:00 Pulse 54 L 04/24/21 10:00 Resp 14 04/24/21 10:00 BP 138/64 04/24/21 10:00 Pulse Ox 97 04/24/21 10:00 Intake & Output 04/23/21 04/24/21 04/24/21 18:59 06:59 18:59 Intake Total 510.25 1299.933 779.4 Output Total 390 110 55 Balance 120.25 1189.933 724.4 Weight 72 kg Intake: IV 500 1260 600 0.9 200 910 400 Magnesium Sulfate-D5w Pmx 200 100 100 1 gm In Dextrose/Water 1 100ml.bag @ 100 mls/hr IVPB Q1H [facility] Rx#: [id number] Valproate Sodium 750 mg 50 50 In Sodium Chloride 0.9% 50 ml @ 50 mls/hr IVPB Q12HR [facility] Rx#:[id number] cefTRIAXone 2 gm In 50 Sodium Chloride 0.9% 50 ml @ 100 mls/hr IVPB Q24HR [facility] Rx#:[id number] levETIRAcetam IV 1,000 mg 100 In Saline 1 100ml.bag @ 400 mls/hr IVPB ONCE ONE Rx#:[id number] metroNIDAZOLE-NS PMX 500 200 mg In Saline 1 100ml.bag @ 100 mls/hr IVPB Q8H [facility] Rx#:[id number] Intake, IV Titration 10.25 39.933 79.4 Amount Midazolam HCl 50 mg In 10.25 39.933 79.4 Sodium Chloride 0.9% 40 ml @ 3 MG/HR 3 mls/hr IV .[id number] [facility] Rx#: [id number] Oral 100 Output: Urine 390 110 55 Other: Voiding Method Indwelling Catheter Indwelling Catheter - Labs CBC & Chem 7: 04/24/21 04:13 04/24/21 04:13 Labs: Abnormal Lab Results - Last 24 Hours (Table) 04/24/21 04/24/21 04/24/21 Range/Units 04:13 04:13 05:00 WBC 2.8 L (3.8-10.6) k/uL RBC 2.96 L (3.80-5.40) m/uL Hgb 9.7 L (11.4-16.0) gm/dL Hct 28.5 L (34.0-46.0) % ABG pH 7.59 H* (7.35-7.45) ABG pCO2 31 L (35-45) mmHg ABG pO2 71 L (83-108) mmHg ABG HCO3 29 H (21-25) mmol/L ABG Total CO2 30 H (19-24) mmol/L Potassium 2.9 L (3.5-5.1) mmol/L Chloride 108 H (98-107) mmol/L BUN 24 H (7-17) mg/dL Microbiology - Last 24 Hours (Table) 04/24/21 03:23 Sputum Culture - Preliminary Sputum 04/18/21 00:04 Blood Culture - Final Blood No Growth after 144 hours 04/22/21 17:19 Blood Culture - Preliminary Blood No Growth after 24 hours 04/17/21 14:15 Blood Culture - Final Blood No Growth after 144 hours 04/17/21 14:35 Blood Culture - Final Blood No Growth after 144 hours
--- NOTE | 2021-04-24 10:56 | P.PN ---
Subjective Progress Note Date: 04/24/21 Principal diagnosis: Acute hypoxic respiratory failure secondary to seizures and aspiration pneumonia. 76-year-old to admission, with extensive mental retardation and developmental delay, sent over to us because of some increased shortness of breath. Patient is nonverbal. Unable to provide any history. She does moan. Nonresponsive to any verbal stimulation. Her baseline neurologic function is significantly impaired. The patient was noted to have increased drowsiness, diminished oral intake, failure to thrive, and some shortness of breath. Initially, her pulse ox was 97% on room air and later on she was found to desaturate and there was obvious that operative pulse ox and for that reason the patient was placed on 4 L about 2 by nasal cannula and her current pulse ox is 95%. No cough. No significant respiratory distress. No reported aspiration. Temperature is 98.6. The white cell count is 7.8. COVID-19 testing was negative. C-reactive protein was at 2.8. Troponin 2 is 0.05 and lactic acid level was at 1.9. Chest x-ray showed questionable atelectatic changes and left lung base. Follow- up chest x-ray was done today showing mild cardiomegaly and small left-sided pleural effusion/atelectasis. The pulmonary vessel which are with essentially prominent. Patient was placed on a combination of Rocephin and clindamycin suspected aspiration pneumonia. Note that the patient's proBNP level was at 483. TSH was normal. She has had no seizure activity. Otherwise no other additional history is available. The patient is seen today 04/23/2021 in follow-up in the intensive care unit. Early this morning the patient developed seizure activity and developed respiratory distress requiring intubation mechanical ventilatory support and transfer to the ICU. She is currently on the ventilator program to assist control mode at a respiratory rate of 18, tidal volume 400, FiO2 50% and a PEEP of 5. Morning blood gases revealed a P O2 of 348, pCO2 of 49 and a pH of 7.30 on 100% FiO2. She is sedated on propofol at 40 mcg/kg/m. 0.9 normal sinus at 1 0 MLS per hour. She has had suspected aspiration pneumonia. Chest x-ray does reveal pulmonary interstitial and airspace edema. Worse compared to yesterday. She is currently on ceftriaxone and Flagyl. Cultures reveal no growth. White count 5.2. Hemoglobin 10.1. Sodium 141. Potassium 3.4. Creatinine 0.61. AST 40, ALT 26. She remains on Keppra. No further seizure activity noted. Patient was reevaluated today on 04/24/2021, remains intubated and mechanically ventilated. Patient is on assist control rate of 14, volume is 350 FiO2 50% PEEP of 5. ABG showed a pO2 of 71 pH of 7.59 pCO2 of 31, since the ABG the ventilator settings were adjusted and her tidal volume was cut down to 350 and rate was cut down to 14. Patient remains on Versed at 12 mg per hour, remains on 0.9 normal saline at KVO. Chest x-ray is showing bibasilar infiltrates and possibly a left pleural effusion. Patient is supposed to have a lumbar puncture today as recommended by neurology on the case, hence I plan to keep her intubated and mechanically ventilated and it will be extremely difficult to perform a lumbar puncture in this patient if not sedated, patient is usually agitated, and would be very difficult to perform lumbar puncture off sedation off mechanical ventilation. In the meantime patient will need a PEG tube,. She had issues with aspiration for quite some time, and her legal guardian is addressing with reports further treatment plans and whether the patient will need to be going through this or maybe consider home hospice. CBC today showed WBC of 2.8 hemoglobin of 9.7. Potassium is low at 2.9 being corrected as per protocol. Bicarb is 26. Her pH will improve after improving her respiratory alkalosis Objective - Vital Signs Vital signs: Vital Signs Temp 98.5 F 04/24/21 08:00 Pulse 54 L 04/24/21 10:00 Resp 14 04/24/21 10:00 BP 138/64 04/24/21 10:00 Pulse Ox 97 04/24/21 10:00 Intake & Output 04/23/21 04/24/21 04/24/21 18:59 06:59 18:59 Intake Total 510.25 1299.933 741.6 Output Total 390 110 55 Balance 120.25 1189.933 686.6 Weight 72 kg Intake: IV 500 1260 600 0.9 200 910 400 Magnesium Sulfate-D5w Pmx 200 100 100 1 gm In Dextrose/Water 1 100ml.bag @ 100 mls/hr IVPB Q1H [facility] Rx#: [id number] Valproate Sodium 750 mg 50 50 In Sodium Chloride 0.9% 50 ml @ 50 mls/hr IVPB Q12HR [facility] Rx#:[id number] cefTRIAXone 2 gm In 50 Sodium Chloride 0.9% 50 ml @ 100 mls/hr IVPB Q24HR [facility] Rx#:[id number] levETIRAcetam IV 1,000 mg 100 In Saline 1 100ml.bag @ 400 mls/hr IVPB ONCE ONE Rx#:[id number] metroNIDAZOLE-NS PMX 500 200 mg In Saline 1 100ml.bag @ 100 mls/hr IVPB Q8H [facility] Rx#:[id number] Intake, IV Titration 10.25 39.933 41.6 Amount Midazolam HCl 50 mg In 10.25 39.933 41.6 Sodium Chloride 0.9% 40 ml @ 3 MG/HR 3 mls/hr IV .[id number] [facility] Rx#: [id number] Oral 100 Output: Urine 390 110 55 Other: Voiding Method Indwelling Catheter Indwelling Catheter - Exam GENERAL EXAM: Revealed 76-year-old female intubated sedated, in no distress. HEAD: Normocephalic. EYES: PERRLA, EOMI, nonicteric. NOSE: Clear with pink turbinates. THROAT: Moist mucous membranes, endotracheal tube and orogastric tube are i ntact. NECK: No masses, no JVD. CHEST: No chest wall deformity. LUNGS: Fine crackles at the bases no rhonchi and no wheezes. CVS: S1 and S2 normal with no audible murmur, regular rhythm. ABDOMEN: No hepatosplenomegaly, normal bowel sounds, no guarding or rigidity. SKIN: No rashes CENTRAL NERVOUS SYSTEM: Sedated. On propofol, could not fully assess. EXTREMITIES: No clubbing edema or cyanosis - Labs CBC & Chem 7: 04/24/21 04:13 04/24/21 04:13 Labs: Abnormal Lab Results - Last 24 Hours (Table) 04/24/21 04/24/21 04/24/21 Range/Units 04:13 04:13 05:00 WBC 2.8 L (3.8-10.6) k/uL RBC 2.96 L (3.80-5.40) m/uL Hgb 9.7 L (11.4-16.0) gm/dL Hct 28.5 L (34.0-46.0) % ABG pH 7.59 H* (7.35-7.45) ABG pCO2 31 L (35-45) mmHg ABG pO2 71 L (83-108) mmHg ABG HCO3 29 H (21-25) mmol/L ABG Total CO2 30 H (19-24) mmol/L Potassium 2.9 L (3.5-5.1) mmol/L Chloride 108 H (98-107) mmol/L BUN 24 H (7-17) mg/dL Microbiology - Last 24 Hours (Table) 04/18/21 00:04 Blood Culture - Final Blood No Growth after 144 hours 04/22/21 17:19 Blood Culture - Preliminary Blood No Growth after 24 hours 04/17/21 14:15 Blood Culture - Final Blood No Growth after 144 hours 04/17/21 14:35 Blood Culture - Final Blood No Growth after 144 hours Assessment and Plan Assessment: Impression:1 Acute hypoxemic respiratory failure secondary to aspiration pneumonia, currently on a combination of Rocephin and Flagyl. Required intubation mechanical ventilatory support on 04/23/2021, remains intubated and mechanically ventilated. 2 Seizure activity, currently on Keppra. ALLERGY consulted. Neurology is recommending a lumbar puncture. 3 Developmental delay/mentally challenged, severe 4 Hypothyroidism 5 Troponin leak, no acute ischemic EKG changes 6 Diminished oral intake, failure to thrive along with a very poor baseline performance and functional status is extremely poor secondary to above-mentioned comorbidities. Recommendation: Continue ventilatory support. Ventilator settings were adjusted based on the ABG findings. Lumbar puncture is pending. Continue antibiotics Continue seizure medications as per neurology Consult GI for PEG tube placement. Continue GI and DVT prophylaxis. Will likely discontinue propofol after lumbar puncture today, and give the patient at least a weaning trial. Patient remains critically ill, critical care time is over 30 minutes. Time with Patient: Greater than 30
[2021-04-24 11:31] LABS: Glucose,Whole Blood 82 mg/dL (75-99)
--- NOTE | 2021-04-24 15:11 | EEG ---
ELECTROENCEPHALOGRAM REPORT DATE OF SERVICE: 04/24/2021. CLINICAL HISTORY: This is a 76-year-old woman with who had a seizure episode. The video EEG is obtained to evaluate for seizure epileptiform activity. Relevant medication: Depakote and IV Versed. EEG TYPE: A routine 21-channel EEG is performed with video using the 10/20 electrode placement system. DESCRIPTION: The patient is intubated on ventilator. During awake state, the background consists of low to moderate voltage of 5-6 hertz theta activity that is nonrhythmic intermixed with delta activity. During non-awake state, the background consists of nonrhythmic diffuse delta activity of about 1-1/2 to 2 hertz activity. There is no sleep architecture seen. There is no focal slowing. Interictal and ictal: There are rare to occasional sharp and slow waves over the bilateral upper derivatives (right more than the left) without any evolution of seizure. ACTIVATION PROCEDURE: Photic stimulation did not evoke a posterior driving response. Hyperventilation is not performed. CLINICAL INTERPRETATION: This is an abnormal routine EEG. The background slowing is suggestive of moderate encephalopathy. There are rare epileptiform discharges which increases risk of a seizure. There are no focal slowing or seizure on the EEG. The current EEG is improved compared to 04/23/2021 EEG. Clinical correlation is recommended. MMODL / IJN: [id number] / MTDD
--- NOTE | 2021-04-24 17:45 | PN ---
PROGRESS NOTE DATE OF SERVICE: 04/24/2021 CHIEF COMPLAINT: Mental status changes, dysphagia and respiratory arrest. HISTORY OF PRESENT ILLNESS: This lady is currently fairly stable. Her vital signs are normal. I have tried to reach her guardian, without success. PHYSICAL EXAMINATION: Blood pressure is normal. Chest is clear. Cardiac exam is normal. Abdomen is soft. IMPRESSION: 1. Mental status changes. 2. Seizure disorder. 3. Respiratory arrest. 4. Dysphagia. PLAN: Continue to progress activity and continue efforts to try to reach her guardian regarding further directions on care. MMODL / IJN: [id number] /
[2021-04-24 22:34] LABS: Glucose,Whole Blood 83 mg/dL (75-99)
[2021-04-24] MEDS: MIDAZOLAM HCL 100 MG in SODIUM CHLORIDE 0.9% 80 ML IV SCH (23:09)
[2021-04-25] MEDS: metroNIDAZOLE-NS PMX 500 MG in SALINE 1 100ML.BAG IVPB SCH ×3 (02:19→19:02)
[2021-04-25 02:42] LABS: Glucose,Whole Blood 65 mg/dL (75-99)
[2021-04-25 02:42] LABS: Glucose,Whole Blood 62 mg/dL (75-99)
[2021-04-25] MEDS: DEXTROSE 50% SYRINGE 50 ML IVP STA ×2 (02:44→12:14)
[2021-04-25 03:11] LABS: Glucose,Whole Blood 207 mg/dL (75-99)
[2021-04-25 04:33] LABS: Basophils % (A) 0 %; Eosinophils % (A) 1 %; HCT 27.7 % (34.0-46.0); HGB 9.3 gm/dL (11.4-16.0); Hypochromasia Slight; Lymphocytes # (A) 0.9 k/uL (1.0-4.8); Lymphocytes % (A) 30 %; MCH 32.9 pg (25.0-35.0); MCHC 33.4 g/dL (31.0-37.0); MCV 98.4 fL (80.0-100.0); Macrocytosis Slight; Mean Platelet Volume 10.9; Monocytes # (A) 0.2 k/uL (0-1.0); Monocytes % (A) 7 %; Neutrophils # (A) 1.8 k/uL (1.3-7.7); Neutrophils % (A) 61 %; Platelet Count 174 k/uL (150-450); RBC 2.81 m/uL (3.80-5.40); RDW 15.6 % (11.5-15.5)
[2021-04-25 05:03] LABS: African American GFR (CKD) >90 (>60 ml/min/1.73 sqM); Anion Gap 7 mmol/L; Blood Urea Nitrogen 21 mg/dL (7-17); Calcium 7.9 mg/dL (8.4-10.2); Carbon Dioxide 24 mmol/L (22-30); Chloride 111 mmol/L (98-107); Glucose 124 mg/dL (74-99); Magnesium 1.9 mg/dL (1.6-2.3); Non-African American GFR(CKD) >90 (>60 ml/min/1.73 sqM); Potassium 3.3 mmol/L (3.5-5.1); Sodium 142 mmol/L (137-145)
--- NOTE | 2021-04-25 05:18 | PN ---
PROGRESS NOTE DATE OF SERVICE: 04/24/2021. REASON FOR FOLLOW UP: Pneumonia, possible aspiration. INTERVAL HISTORY: Patient is currently afebrile. The patient remains to be intubated on the vent. She is hemodynamically stable. . No significant purulent secretions through the ET or diarrhea has been reported by nursing staff. PHYSICAL EXAMINATION: Blood pressure 138/57, pulse of 101, temperature is 97.3. She is 93% on 50% FiO2. General description is an elderly female intubated on the vent. Respiratory system: Unlabored breathing, decreased breath sounds in the bases. No wheeze. Heart S1, S2. Regular rate and rhythm. Abdomen soft, no tenderness. LABS: Hemoglobin 9.7, white count 2.8, BUN of 24, creatinine 0.53. Sputum cultures currently pending. Blood culture so far negative. DIAGNOSTIC IMPRESSION AND PLAN: Patient with acute respiratory failure, multifactorial in this patient with possible component of aspiration pneumonia in this patient who did have with subsequent respiratory failure requiring intubation. Patient is covered with Rocephin and Flagyl to continue while waiting for the culture to finalize and monitor clinical course closely. MMODL / IJN: [id number] /
[2021-04-25 05:22] LABS: Allen Test Performed? Yes
[2021-04-25 05:43] LABS: ABG Base Excess 5.3 mmol/L; ABG HCO3 29 mmol/L (21-25); ABG Oxygen Saturation 98.9 % (94-97); ABG PCO2 40 mmHg (35-45); ABG PH 7.47 (7.35-7.45); ABG PO2 120 mmHg (83-108); ABG TCO2 30 mmol/L (19-24)
[2021-04-25] MEDS: POTASSIUM BICARBONATE/CIT AC 20 MEQ TABLET.EFF NG-TUBE SCH ×2 (05:56→06:51)
[2021-04-25] MEDS: LEVOTHYROXINE IVP 100 MCG/5 ML VIAL IV SCH (07:58)
--- NOTE | 2021-04-25 08:07 | XR ---
EXAMINATION TYPE: XR chest 1V portable DATE OF EXAM: 04/25/2021 CLINICAL HISTORY: Difficulty breathing progress study. TECHNIQUE: Single AP portable supine view of the chest is obtained. COMPARISON: Chest x-ray from one day earlier and older studies FINDINGS: Stable endotracheal and orogastric tubes. Patient now rotated to the left once again making evaluation suboptimal. Stable mild cardiomegaly wit h atherosclerotic thoracic aorta. Persistent persistent bibasilar opacities fairly stable on the left and more prominent on the right. Upper lungs remain clear. Degenerative changes bilateral shoulders redemonstrated. Underlying rotary scoliosis redemonstrated. Osseous structures redemonstrated deminer alized. IMPRESSION: Stable small left pleural effusion. Mild cardiomegaly with bibasilar acute infiltrate and /or atelectasis now present. Findings more prominent in the right lung base from one day earlier.
[2021-04-25] MEDS: CHLORHEXIDINE GLUCONATE 15 ML CUP MUCOUS MEM SCH ×2 (08:09→20:54)
[2021-04-25] MEDS: ALBUTEROL NEBULIZED 2.5 MG/3 ML INHALATION SCH ×4 (08:27→19:32)
[2021-04-25] MEDS: MIDAZOLAM HCL 100 MG in SODIUM CHLORIDE 0.9% 80 ML IV SCH ×2 (08:55→19:01)
[2021-04-25] MEDS: VALPROATE SODIUM 750 MG in SODIUM CHLORIDE 0.9% 50 ML IVPB SCH ×2 (08:58→20:54)
--- NOTE | 2021-04-25 10:26 | P.PN ---
<Wanda Eng - Last Filed: 04/25/21 10:24> Subjective Progress Note Date: 04/25/21 CHIEF COMPLAINT: Shortness of breath HISTORY OF PRESENT ILLNESS: Patient remains in the ICU intubated and sedated. No further seizure activity reported. She's on antibiotics for possible aspiration pneumonia. Patient's guardian has meeting tomorrow with the Court to discuss DO NOT RESUSCITATE and hospice order. Afebrile WBC 3.0 PHYSICAL EXAM: VITAL SIGNS: Reviewed. GENERAL: Well-developed in no acute distress. HEENT: No sclera icterus. Extraocular movements grossly intact. Moist buccal mucosa. Head is atraumatic, normocephalic. ABDOMEN: Soft. Nondistended. Nontender. NEUROLOGIC: Intubated and sedated ASSESSMENT: 1. Aspiration pneumonia 2. Moderate protein calorie malnutrition 3. Developmental delay PLAN: -Legal guardian has meeting with court tomorrow. Awaiting their decision regarding hospice measures or if they want any further procedures to be completed. If desired can proceed with EGD with PEG tube placement. -Continue ICU management and supportive care Physician Operations Staff Specialist Security note has been reviewed by physician. Signing provider agrees with the documented findings, assessment, and plan of care. Objective - Vital Signs Vital signs: Vital Signs Temp 98.2 F 04/25/21 08:00 Pulse 50 L 04/25/21 10:00 Resp 14 04/25/21 10:00 BP 119/46 04/25/21 10:00 Pulse Ox 96 04/25/21 10:00 Intake & Output 04/24/21 04/25/21 04/25/21 18:59 06:59 18:59 Intake Total 1628.8 592.000 257.100 Output Total 185 135 70 Balance 1443.8 457.000 187.100 Weight 72 kg 73.1 kg 73.1 kg Intake: IV 1400 480 230 0.9 1200 480 80 Magnesium Sulfate-D5w Pmx 100 1 gm In Dextrose/Water 1 100ml.bag @ 100 mls/hr IVPB Q1H [facility] Rx#: [id number] Valproate Sodium 750 mg 50 In Sodium Chloride 0.9% 50 ml @ 50 mls/hr IVPB Q12HR [facility] Rx#:[id number] cefTRIAXone 2 gm In 50 50 Sodium Chloride 0.9% 50 ml @ 100 mls/hr IVPB Q24HR [facility] Rx#:[id number] metroNIDAZOLE-NS PMX 500 100 mg In Saline 1 100ml.bag @ 100 mls/hr IVPB Q8H [facility] Rx#:[id number] Intake, IV Titration 128.8 112.000 27.100 Amount Midazolam HCl 100 mg In 62.000 27.100 Sodium Chloride 0.9% 80 ml @ 3 MG/HR 3 mls/hr IV .Q24H [facility] Rx#:[id number] Midazolam HCl 50 mg In 128.8 50 Sodium Chloride 0.9% 40 ml @ 3 MG/HR 3 mls/hr IV .[id number] [facility] Rx#: [id number] Oral 100 Output: Urine 185 135 70 Other: Voiding Method Indwelling Catheter Indwelling Catheter Indwelling Catheter - Labs CBC & Chem 7: 04/25/21 04:11 04/25/21 08:54 Labs: Abnormal Lab Results - Last 24 Hours (Table) 04/25/21 04/25/21 04/25/21 Range/Units 02:29 02:30 02:59 WBC (3.8-10.6) k/uL RBC (3.80-5.40) m/uL Hgb (11.4-16.0) gm/dL Hct (34.0-46.0) % RDW (11.5-15.5) % Lymphocytes # (1.0-4.8) k/uL ABG pH (7.35-7.45) ABG pO2 (83-108) mmHg ABG HCO3 (21-25) mmol/L ABG Total CO2 (19-24) mmol/L ABG O2 Saturation (94-97) % Potassium (3.5-5.1) mmol/L Chloride (98-107) mmol/L BUN (7-17) mg/dL Creatinine (0.52-1.04) mg/dL Glucose (74-99) mg/dL POC Glucose (mg/dL) 62 L 65 L 207 H (75-99) mg/dL Calcium (8.4-10.2) mg/dL 04/25/21 04/25/21 04/25/21 Range/Units 04:11 04:11 05:15 WBC 3.0 L (3.8-10.6) k/uL RBC 2.81 L (3.80-5.40) m/uL Hgb 9.3 L (11.4-16.0) gm/dL Hct 27.7 L (34.0-46.0) % RDW 15.6 H (11.5-15.5) % Lymphocytes # 0.9 L (1.0-4.8) k/uL ABG pH 7.47 H (7.35-7.45) ABG pO2 120 H (83-108) mmHg ABG HCO3 29 H (21-25) mmol/L ABG Total CO2 30 H (19-24) mmol/L ABG O2 Saturation 98.9 H (94-97) % Potassium 3.3 L (3.5-5.1) mmol/L Chloride 111 H (98-107) mmol/L BUN 21 H (7-17) mg/dL Creatinine 0.51 L (0.52-1.04) mg/dL Glucose 124 H (74-99) mg/dL POC Glucose (mg/dL) (75-99) mg/dL Calcium 7.9 L (8.4-10.2) mg/dL Microbiology - Last 24 Hours (Table) 04/22/21 17:19 Blood Culture - Preliminary Blood No Growth after 48 hours 04/24/21 03:23 Sputum Culture - Preliminary Sputum <Dixon Cloud - Last Filed: 04/25/21 12:35> Subjective As above. Spoke with pulmonary. Plans are tentatively for hospice tomorrow. We'll follow to confirm the PEG tube is not needed. Objective - Vital Signs Vital signs: Vital Signs Temp 96.1 F L 04/25/21 12:00 Pulse 46 L 04/25/21 12:03 Resp 15 04/25/21 12:00 BP 124/52 04/25/21 12:00 Pulse Ox 97 04/25/21 12:00 Intake & Output 04/24/21 04/25/21 04/25/21 18:59 06:59 18:59 Intake Total 1628.8 592.000 317.100 Output Total 185 135 90 Balance 1443.8 457.000 227.100 Weight 72 kg 73.1 kg 73.1 kg Intake: IV 1400 480 270 0.9 1200 480 120 Magnesium Sulfate-D5w Pmx 100 1 gm In Dextrose/Water 1 100ml.bag @ 100 mls/hr IVPB Q1H [facility] Rx#: [id number] Valproate Sodium 750 mg 50 In Sodium Chloride 0.9% 50 ml @ 50 mls/hr IVPB Q12HR [facility] Rx#:[id number] cefTRIAXone 2 gm In 50 50 Sodium Chloride 0.9% 50 ml @ 100 mls/hr IVPB Q24HR [facility] Rx#:[id number] metroNIDAZOLE-NS PMX 500 100 mg In Saline 1 100ml.bag @ 100 mls/hr IVPB Q8H [facility] Rx#:[id number] Intake, IV Titration 128.8 112.000 27.100 Amount Midazolam HCl 100 mg In 62.000 27.100 Sodium Chloride 0.9% 80 ml @ 3 MG/HR 3 mls/hr IV .Q24H [facility] Rx#:[id number] Midazolam HCl 50 mg In 128.8 50 Sodium Chloride 0.9% 40 ml @ 3 MG/HR 3 mls/hr IV .[id number] [facility] Rx#: [id number] Oral 100 Tube Feeding 20 Output: Urine 185 135 90 Other: Voiding Method Indwelling Catheter Indwelling Catheter Indwelling Catheter - Labs CBC & Chem 7: 04/25/21 04:11 04/25/21 08:54 Labs: Abnormal Lab Results - Last 24 Hours (Table) 04/25/21 04/25/21 04/25/21 Range/Units 02:29 02:30 02:59 WBC (3.8-10.6) k/uL RBC (3.80-5.40) m/uL Hgb (11.4-16.0) gm/dL Hct (34.0-46.0) % RDW (11.5-15.5) % Lymphocytes # (1.0-4.8) k/uL ABG pH (7.35-7.45) ABG pO2 (83-108) mmHg ABG HCO3 (21-25) mmol/L ABG Total CO2 (19-24) mmol/L ABG O2 Saturation (94-97) % Potassium (3.5-5.1) mmol/L Chloride (98-107) mmol/L BUN (7-17) mg/dL Creatinine (0.52-1.04) mg/dL Glucose (74-99) mg/dL POC Glucose (mg/dL) 62 L 65 L 207 H (75-99) mg/dL Calcium (8.4-10.2) mg/dL 04/25/21 04/25/21 04/25/21 Range/Units 04:11 04:11 05:15 WBC 3.0 L (3.8-10.6) k/uL RBC 2.81 L (3.80-5.40) m/uL Hgb 9.3 L (11.4-16.0) gm/dL Hct 27.7 L (34.0-46.0) % RDW 15.6 H (11.5-15.5) % Lymphocytes # 0.9 L (1.0-4.8) k/uL ABG pH 7.47 H (7.35-7.45) ABG pO2 120 H (83-108) mmHg ABG HCO3 29 H (21-25) mmol/L ABG Total CO2 30 H (19-24) mmol/L ABG O2 Saturation 98.9 H (94-97) % Potassium 3.3 L (3.5-5.1) mmol/L Chloride 111 H (98-107) mmol/L BUN 21 H (7-17) mg/dL Creatinine 0.51 L (0.52-1.04) mg/dL Glucose 124 H (74-99) mg/dL POC Glucose (mg/dL) (75-99) mg/dL Calcium 7.9 L (8.4-10.2) mg/dL 04/25/21 04/25/21 Range/Units 12:10 12:31 WBC (3.8-10.6) k/uL RBC (3.80-5.40) m/uL Hgb (11.4-16.0) gm/dL Hct (34.0-46.0) % RDW (11.5-15.5) % Lymphocytes # (1.0-4.8) k/uL ABG pH (7.35-7.45) ABG pO2 (83-108) mmHg ABG HCO3 (21-25) mmol/L ABG Total CO2 (19-24) mmol/L ABG O2 Saturation (94-97) % Potassium (3.5-5.1) mmol/L Chloride (98-107) mmol/L BUN (7-17) mg/dL Creatinine (0.52-1.04) mg/dL Glucose (74-99) mg/dL POC Glucose (mg/dL) 62 L 148 H (75-99) mg/dL Calcium (8.4-10.2) mg/dL Microbiology - Last 24 Hours (Table) 04/24/21 03:23 Gram Stain - Preliminary Sputum Sputum Culture - Preliminary 04/22/21 17:19 Blood Culture - Preliminary Blood No Growth after 48 hours
[2021-04-25 12:12] LABS: Glucose,Whole Blood 62 mg/dL (75-99)
[2021-04-25] MEDS ORDERED: DEXTROSE 50% SYRINGE 50 ML IVP ONE (12:13)
[2021-04-25 12:32] LABS: Glucose,Whole Blood 148 mg/dL (75-99)
--- NOTE | 2021-04-25 12:59 | P.PN ---
Subjective Progress Note Date: 04/25/21 Principal diagnosis: Acute hypoxic respiratory failure secondary to seizures and aspiration pneumonia 76-year-old to admission, with extensive mental retardation and developmental delay, sent over to us because of some increased shortness of breath. Patient is nonverbal. Unable to provide any history. She does moan. Nonresponsive to any verbal stimulation. Her baseline neurologic function is significantly impaired. The patient was noted to have increased drowsiness, diminished oral intake, failure to thrive, and some shortness of breath. Initially, her pulse ox was 97% on room air and later on she was found to desaturate and there was obvious that operative pulse ox and for that reason the patient was placed on 4 L about 2 by nasal cannula and her current pulse ox is 95%. No cough. No significant respiratory distress. No reported aspiration. Temperature is 98.6. The white cell count is 7.8. COVID-19 testing was negative. C-reactive protein was at 2.8. Troponin 2 is 0.05 and lactic acid level was at 1.9. Chest x-ray showed questionable atelectatic changes and left lung base. Follow- up chest x-ray was done today showing mild cardiomegaly and small left-sided pleural effusion/atelectasis. The pulmonary vessel which are with essentially prominent. Patient was placed on a combination of Rocephin and clindamycin suspected aspiration pneumonia. Note that the patient's proBNP level was at 483. TSH was normal. She has had no seizure activity. Otherwise no other additional history is available. The patient is seen today 04/23/2021 in follow-up in the intensive care unit. Early this morning the patient developed seizure activity and developed respiratory distress requiring intubation mechanical ventilatory support and transfer to the ICU. She is currently on the ventilator program to assist control mode at a respiratory rate of 18, tidal volume 400, FiO2 50% and a PEEP of 5. Morning blood gases revealed a P O2 of 348, pCO2 of 49 and a pH of 7.30 on 100% FiO2. She is sedated on propofol at 40 mcg/kg/m. 0.9 normal sinus at 10 MLS per hour. She has had suspected aspiration pneumonia. Chest x-ray does reveal pulmonary interstitial and airspace edema. Worse compared to yesterday. She is currently on ceftriaxone and Flagyl. Cultures reveal no growth. White count 5.2. Hemoglobin 10.1. Sodium 141. Potassium 3.4. Creatinine 0.61. AST 40, ALT 26. She remains on Keppra. No further seizure activity noted. Patient was reevaluated today on 04/24/2021, remains intubated and mechanically ventilated. Patient is on assist control rate of 14, volume is 350 FiO2 50% PEEP of 5. ABG showed a pO2 of 71 pH of 7.59 pCO2 of 31, since the ABG the ventilator settings were adjusted and her tidal volume was cut down to 350 and rate was cut down to 14. Patient remains on Versed at 12 mg per hour, remains on 0.9 normal saline at KVO. Chest x-ray is showing bibasilar infiltrates and possibly a left pleural effusion. Patient is supposed to have a lumbar puncture today as recommended by neurology on the case, hence I plan to keep her intubated and mechanically ventilated and it will be extremely difficult to perform a lumbar puncture in this patient if not sedated, patient is usually agitated, and would be very difficult to perform lumbar puncture off sedation off mechanical ventilation. In the meantime patient will need a PEG tube,. She had issues with aspiration for quite some time, and her legal guardian is addressing with reports further treatment plans and whether the patient will need to be going through this or maybe consider home hospice. CBC today showed WBC of 2.8 hemoglobin of 9.7. Potassium is low at 2.9 being corrected as per protocol. Bicarb is 26. Her pH will improve after improving her respiratory alkalosis On 04/25/2021 patient seen in follow-up in the intensive care unit, she remains intubated, sedated on Versed, currently at 10 mg per hour. She is on assist- control mode of ventilation with a rate of 14, tidal vital 350, FiO2 of 40% and PEEP of 5, this morning's blood gas shows pO2 120, pCO2 of 40, and pH is 7.47. Patient is sedated, but she opens eyes to tactile stimulation. Does not appear to be in any acute distress, hemodynamically stable, in sinus mechanism, sinus bradycardia with a rate of 47-50 BPM, today's chest x-ray has been reviewed showing small left pleural effusion, stable, mild cardiomegaly with bibasilar Infiltrates and atelectasis. No fever. No vasopressor support, antibiotic coverage includes Rocephin and Flagyl. No seizure activity overnight reported by nursing staff, neurology is following, patient is on Depakote 750 mg twice daily. EEG showing background slowing suggestive of moderate encephalopathy, rare epileptiform discharge no focal slowing or seizure on EEG. Today's labs have been reviewed, her white blood cell, 3.0, hemoglobin is 9.3, platelet count is 174, sodium is 142, potassium is 3.3 and this has been replaced per protocol, rechecking back at 4.2, chloride is 111, CO2 is 24, B1 is 21, creatinine 0.51. Blood and sputum cultures have shown no growth thus far. Patient has severe developmental delay at baseline, she has a legal guardian and there was an emergency hearing yesterday in regards to patient's CODE STATUS. Outcome of the meeting is not known at this time. However the nursing staff reports that there is a possibility of CODE STATUS changing tomorrow and patient possibly being transitioned to comfort care. For now supportive care continues Objective - Vital Signs Vital signs: Vital Signs Temp 96.1 F L 04/25/21 12:00 Pulse 46 L 04/25/21 12:03 Resp 15 04/25/21 12:00 BP 124/52 04/25/21 12:00 Pulse Ox 97 04/25/21 12:00 Intake & Output 04/24/21 04/25/21 04/25/21 18:59 06:59 18:59 Intake Total 1628.8 592.000 317.100 Output Total 185 135 90 Balance 1443.8 457.000 227.100 Weight 72 kg 73.1 kg 73.1 kg Intake: IV 1400 480 270 0.9 1200 480 120 Magnesium Sulfate-D5w Pmx 100 1 gm In Dextrose/Water 1 100ml.bag @ 100 mls/hr IVPB Q1H [facility] Rx#: [id number] Valproate Sodium 750 mg 50 In Sodium Chloride 0.9% 50 ml @ 50 mls/hr IVPB Q12HR [facility] Rx#:[id number] cefTRIAXone 2 gm In 50 50 Sodium Chloride 0.9% 50 ml @ 100 mls/hr IVPB Q24HR [facility] Rx#:[id number] metroNIDAZOLE-NS PMX 500 100 mg In Saline 1 100ml.bag @ 100 mls/hr IVPB Q8H [facility] Rx#:[id number] Intake, IV Titration 128.8 112.000 27.100 Amount Midazolam HCl 100 mg In 62.000 27.100 Sodium Chloride 0.9% 80 ml @ 3 MG/HR 3 mls/hr IV .Q24H [facility] Rx#:[id number] Midazolam HCl 50 mg In 128.8 50 Sodium Chloride 0.9% 40 ml @ 3 MG/HR 3 mls/hr IV .[id number] [facility] Rx#: [id number] Oral 100 Tube Feeding 20 Output: Urine 185 135 90 Other: Voiding Method Indwelling Catheter Indwelling Catheter Indwelling Catheter - Exam GENERAL EXAM: Sedated, intubated, 76-year-old white female, on assist-control mode of ventilation, FiO2 of 40%, and PEEP of 5 HEAD: Normocephalic/atraumatic. EYES: Normal reaction of pupils, equal size. Conjunctiva pink, sclera white. NOSE: Clear with pink turbinates. THROAT: No erythema or exudates. NECK: No masses, no JVD, no thyroid enlargement, no adenopathy. CHEST: No chest wall deformity. Symmetrical expansion. LUNGS: Equal air entry with no crackles, wheeze, rhonchi or dullness. CVS: Regular rate and rhythm, normal S1 and S2, no gallops, no murmurs, no rubs ABDOMEN: Soft, nontender. No hepatosplenomegaly, normal bowel sounds, no guarding or rigidity. EXTREMITIES: No clubbing, no edema, no cyanosis, 2+ pulses and upper and lower extremities. MUSCULOSKELETAL: Muscle strength and tone normal. SPINE: No scoliosis or deformity SKIN: No rashes CENTRAL NERVOUS SYSTEM: Sedated. No focal deficits, tone is normal in all 4 extremities. - Labs CBC & Chem 7: 04/25/21 04:11 04/25/21 08:54 Labs: Abnormal Lab Results - Last 24 Hours (Table) 04/25/21 04/25/21 04/25/21 Range/Units 02:29 02:30 02:59 WBC (3.8-10.6) k/uL RBC (3.80-5.40) m/uL Hgb (11.4-16.0) gm/dL Hct (34.0-46.0) % RDW (11.5-15.5) % Lymphocytes # (1.0-4.8) k/uL ABG pH (7.35-7.45) ABG pO2 (83-108) mmHg ABG HCO3 (21-25) mmol/L ABG Total CO2 (19-24) mmol/L ABG O2 Saturation (94-97) % Potassium (3.5-5.1) mmol/L Chloride (98-107) mmol/L BUN (7-17) mg/dL Creatinine (0.52-1.04) mg/dL Glucose (74-99) mg/dL POC Glucose (mg/dL) 62 L 65 L 207 H (75-99) mg/dL Calcium (8.4-10.2) mg/dL 04/25/21 04/25/21 04/25/21 Range/Units 04:11 04:11 05:15 WBC 3.0 L (3.8-10.6) k/uL RBC 2.81 L (3.80-5.40) m/uL Hgb 9.3 L (11.4-16.0) gm/dL Hct 27.7 L (34.0-46.0) % RDW 15.6 H (11.5-15.5) % Lymphocytes # 0.9 L (1.0-4.8) k/uL ABG pH 7.47 H (7.35-7.45) ABG pO2 120 H (83-108) mmHg ABG HCO3 29 H (21-25) mmol/L ABG Total CO2 30 H (19-24) mmol/L ABG O2 Saturation 98.9 H (94-97) % Potassium 3.3 L (3.5-5.1) mmol/L Chloride 111 H (98-107) mmol/L BUN 21 H (7-17) mg/dL Creatinine 0.51 L (0.52-1.04) mg/dL Glucose 124 H (74-99) mg/dL POC Glucose (mg/dL) (75-99) mg/dL Calcium 7.9 L (8.4-10.2) mg/dL 04/25/21 04/25/21 Range/Units 12:10 12:31 WBC (3.8-10.6) k/uL RBC (3.80-5.40) m/uL Hgb (11.4-16.0) gm/dL Hct (34.0-46.0) % RDW (11.5-15.5) % Lymphocytes # (1.0-4.8) k/uL ABG pH (7.35-7.45) ABG pO2 (83-108) mmHg ABG HCO3 (21-25) mmol/L ABG Total CO2 (19-24) mmol/L ABG O2 Saturation (94-97) % Potassium (3.5-5.1) mmol/L Chloride (98-107) mmol/L BUN (7-17) mg/dL Creatinine (0.52-1.04) mg/dL Glucose (74-99) mg/dL POC Glucose (mg/dL) 62 L 148 H (75-99) mg/dL Calcium (8.4-10.2) mg/dL Microbiology - Last 24 Hours (Table) 04/24/21 03:23 Gram Stain - Preliminary Sputum Sputum Culture - Preliminary 04/22/21 17:19 Blood Culture - Preliminary Blood No Growth after 48 hours Assessment and Plan Plan: Assessment: #1. Acute hypoxic respiratory failure secondary to aspiration pneumonia, currently on accommodation of Rocephin and Flagyl. Patient required intubation and mechanical ventilatory support on 04/23/2021. #2. Seizure activity, currently on Depakote, patient is being followed by neurology. Brain CT showed no acute infarcts, minimal periventricular white matter hypodensity, likely on the basis of chronic white matter ischemic changes #3. Suspected chronic aspiration, and general surgery has been consulted for insertion of a PEG tube #4. Altered mental status, related to Aspiration pneumonia, sepsis, and possible seizure activity #5. History of developmental delay, severe #6. Hypothyroidism #7. Suspected poor baseline functional performance Plan: Continue current antibiotics We'll start patient on tube feedings Continue monitoring for seizures Continue Depakote per neurology recommendations MRI of the brain cannot be completed related to mechanical ventilator support EEG results have been reviewed All cultures have been reviewed No fever overnight Hemodynamically stable Possibility of CODE STATUS change and comfort care is being considered by the legal guardian who is supposed to have a court ruling tomorrow For now continue supportive care I performed a history & physical examination of the patient and discussed their management with my nurse practitioner, Brittney Shearer. I reviewed the nurse practitioner's note and agree with the documented findings and plan of care. Lung sounds are positive for diminished breath sounds throughout the lung ramos. The findings and the impression was discussed with the patient. I attest to the documentation by the nurse practitioner. Time with Patient: Greater than 30
[2021-04-25 17:06] LABS: Glucose,Whole Blood 83 mg/dL (75-99)
--- NOTE | 2021-04-25 17:58 | P.PN ---
Subjective Progress Note Date: 04/25/21 The patient is seen at beside and continues to be intubated, ventilator and on sedation. Currently on Versed 9mg/hr. No further seizure episodes. Objective - Vital Signs Vital signs: Vital Signs Temp 97.6 F 04/25/21 16:00 Pulse 50 L 04/25/21 17:00 Resp 15 04/25/21 17:00 BP 120/56 04/25/21 17:00 Pulse Ox 95 04/25/21 17:00 Intake & Output 04/24/21 04/25/21 04/25/21 18:59 06:59 18:59 Intake Total 1628.8 592.000 537.100 Output Total 185 135 140 Balance 1443.8 457.000 397.100 Weight 72 kg 73.1 kg 73.1 kg Intake: IV 1400 480 370 0.9 1200 480 220 Magnesium Sulfate-D5w Pmx 100 1 gm In Dextrose/Water 1 100ml.bag @ 100 mls/hr IVPB Q1H [facility] Rx#: [id number] Valproate Sodium 750 mg 50 In Sodium Chloride 0.9% 50 ml @ 50 mls/hr IVPB Q12HR [facility] Rx#:[id number] cefTRIAXone 2 gm In 50 50 Sodium Chloride 0.9% 50 ml @ 100 mls/hr IVPB Q24HR [facility] Rx#:[id number] metroNIDAZOLE-NS PMX 500 100 mg In Saline 1 100ml.bag @ 100 mls/hr IVPB Q8H [facility] Rx#:[id number] Intake, IV Titration 128.8 112.000 27.100 Amount Midazolam HCl 100 mg In 62.000 27.100 Sodium Chloride 0.9% 80 ml @ 3 MG/HR 3 mls/hr IV .Q24H [facility] Rx#:[id number] Midazolam HCl 50 mg In 128.8 50 Sodium Chloride 0.9% 40 ml @ 3 MG/HR 3 mls/hr IV .[id number] [facility] Rx#: [id number] Oral 100 Tube Feeding 140 Output: Urine 185 135 140 Other: Voiding Method Indwelling Catheter Indwelling Catheter Indwelling Catheter - Exam GENERAL: The patient is lying in bed and does not seem in acute distress. LUNG: Clear to auscultation bilaterally no wheezing noted throughout. Not labored breathing. Is intubated and on ventilator. NEUROLOGICAL: Limited because of her condition. Currently on IV Versed 12mg/hr. Higher mental function: The patient is comatose. GCS 8 (E2, VT1, M5). Not overbalizing or following commands. Cranial nerves: I had to manually open her eyes. The right eye is midline and left is looking slightly downward. The pupils are round, equal (2mm) and reactive to light. +ve corneal reflex bilaterally. No facial weakness. Is breathing over the vent. +gag reflex. Motor: The strength is withdrawls all extremities to painful stimuli symetrically. Normal tone and bulk. Cerebellum: Could not assess. Sensation: Could not assess light touch but seems to have normal to painful stimuli. Reflexes (right/left): 1+ throughout.. Plantars are mute bilaterally. WORK-UP: CT of the head on 04/17/2021 is reported as carpal consideration for normal pressure hydrocephalus is recommended. Mild chronic-appearing periventricular white matter ischemic type changes. I personally reviewed the CT of the head and I felt the ventricles were dilated for the atrophy especially the occipital lateral ventricles bilaterally. Routine EEG on 04/23/21: Is abnormal routine EEG. The background slowing suggestive of severe encephalopathy. The lateralized periodic discharges (LPDs) maximum over the right frontal derivatives are sign of focal cortical irritability. There are no seizure seen on the EEG. Routine EEG on 04/24/21: This is an abnormal routine EEG. The background slowing is suggestive of moderate encephalopathy. There are rare epileptiform discharges which increases risk of seizure. There are no focal slowing or seizure on the EEG. The current EEG is improved compared to 04/23/2021 EEG. TSH is 2.3 which is within normal limits. 2-D echo was reported as left ventricle size is normal. Ejection fraction of 55-60%. Moderate to severe mitral regurgitation that. Moderate tricuspid regu rgitation. Moderate pulmonary hypertension. Left atrium is severely dilated that. Urinalysis is negative for urinary tract infection. Urine tox screen is nondetected and the valproic acid is 56.9 which is considered therapeutic but low therapeutic level. Red virus PCR was not detected. - Labs CBC & Chem 7: 04/25/21 04:11 04/25/21 08:54 Labs: Abnormal Lab Results - Last 24 Hours (Table) 04/25/21 04/25/21 04/25/21 Range/Units 02:29 02:30 02:59 WBC (3.8-10.6) k/uL RBC (3.80-5.40) m/uL Hgb (11.4-16.0) gm/dL Hct (34.0-46.0) % RDW (11.5-15.5) % Lymphocytes # (1.0-4.8) k/uL ABG pH (7.35-7.45) ABG pO2 (83-108) mmHg ABG HCO3 (21-25) mmol/L ABG Total CO2 (19-24) mmol/L ABG O2 Saturation (94-97) % Potassium (3.5-5.1) mmol/L Chloride (98-107) mmol/L BUN (7-17) mg/dL Creatinine (0.52-1.04) mg/dL Glucose (74-99) mg/dL POC Glucose (mg/dL) 62 L 65 L 207 H (75-99) mg/dL Calcium (8.4-10.2) mg/dL 04/25/21 04/25/21 04/25/21 Range/Units 04:11 04:11 05:15 WBC 3.0 L (3.8-10.6) k/uL RBC 2.81 L (3.80-5.40) m/uL Hgb 9.3 L (11.4-16.0) gm/dL Hct 27.7 L (34.0-46.0) % RDW 15.6 H (11.5-15.5) % Lymphocytes # 0.9 L (1.0-4.8) k/uL ABG pH 7.47 H (7.35-7.45) ABG pO2 120 H (83-108) mmHg ABG HCO3 29 H (21-25) mmol/L ABG Total CO2 30 H (19-24) mmol/L ABG O2 Saturation 98.9 H (94-97) % Potassium 3.3 L (3.5-5.1) mmol/L Chloride 111 H (98-107) mmol/L BUN 21 H (7-17) mg/dL Creatinine 0.51 L (0.52-1.04) mg/dL Glucose 124 H (74-99) mg/dL POC Glucose (mg/dL) (75-99) mg/dL Calcium 7.9 L (8.4-10.2) mg/dL 04/25/21 04/25/21 Range/Units 12:10 12:31 WBC (3.8-10.6) k/uL RBC (3.80-5.40) m/uL Hgb (11.4-16.0) gm/dL Hct (34.0-46.0) % RDW (11.5-15.5) % Lymphocytes # (1.0-4.8) k/uL ABG pH (7.35-7.45) ABG pO2 (83-108) mmHg ABG HCO3 (21-25) mmol/L ABG Total CO2 (19-24) mmol/L ABG O2 Saturation (94-97) % Potassium (3.5-5.1) mmol/L Chloride (98-107) mmol/L BUN (7-17) mg/dL Creatinine (0.52-1.04) mg/dL Glucose (74-99) mg/dL POC Glucose (mg/dL) 62 L 148 H (75-99) mg/dL Calcium (8.4-10.2) mg/dL Microbiology - Last 24 Hours (Table) 04/24/21 03:23 Gram Stain - Preliminary Sputum Sputum Culture - Preliminary 04/22/21 17:19 Blood Culture - Preliminary Blood No Growth after 48 hours Assessment and Plan Assessment: * Seizure (She was on Depakote as home dose but was changed to Keppra by her Primary). Unsure if she has history of seizure or not (unsure if Depakote was uses as seizure medication at home)--no further seizures * Altered mental status due to above and component to due medication effect (Versed). Rule out underlying meningoencephalitis. * Severe developmental delay * Acute hypoxic respiratory for secondary due to aspiration pneumonia requiring intubation mechanical ventilation following seizure activity. * Hypothyroidism * Troponin leak * Diminished oral intake/failed to thrive Plan: * Continue IV Depakote 750mg every 12 hours. * The public guardian and post anesthesia care unit nurse do not want to proceed with further investigation such as Lumbar Puncture and no MRI. * Infection disease team is on board * Every 1 hour neuro checks. * on seizure precaution as well seizure pads. * We'll defer the rest of the medical management to the ICU/primary team. * Upon discharge the patient needs to follow-up with a neurologist within 1-2 weeks as an outpatient. Condition: Very Guarded. The plan is discussed with the patient's nurse . Per the nurse, the public guardian and post anesthesia care unit nurse are in the process of making the patient DNR and make her hospice after that. Neurology will sign off. Please reconsult neurology if needed. Adalberto Hayward M.D. Neuro-hospitalist Time with Patient: Less than 30
--- NOTE | 2021-04-25 22:07 | PN ---
PROGRESS NOTE DATE OF SERVICE: 04/25/2021 CHIEF COMPLAINT: Respiratory failure following a grand mal seizure. HISTORY OF PRESENT ILLNESS: This lady remains on the ventilator, but she is triggering it. She is moving about in the bed, more consistent with her usual motor behavior. PHYSICAL EXAMINATION: Vital signs are normal. Chest is quite clear. She is moving about. Cardiac exam demonstrates sinus rhythm. Abdomen is soft with no masses. IMPRESSION: 1. Encephalopathy following grand mal seizure. 2. supportive care. I had a discussion with the patient's guardian. The public guardian is going tomorrow to court to see if she can obtain permission to make the patient DNR. Either way, if she continues to improve, the next question will be whether or not she should receive a PEG tube. SMITHA / JOHNN: [id number] /
[2021-04-25 22:30] LABS: Glucose,Whole Blood 78 mg/dL (75-99)
--- NOTE | 2021-04-25 23:21 | PN ---
PROGRESS NOTE DATE OF SERVICE: 04/25/2021 REASON FOR FOLLOWUP: Pneumonia. INTERVAL HISTORY: The patient is afebrile. The patient is intubated on the vent, sedated, hemodynamically stable, not on any pressor support. No purulent secretions through the ET or diarrhea reported by the nursing staff. PHYSICAL EXAMINATION: Blood pressure 125/54, pulse of 63, temperature 98.4. She is 93% on 40% FiO2. GENERAL DESCRIPTION: General description is an elderly female lying in bed, intubated on the vent. RESPIRATORY SYSTEM: Unlabored breathing. Decreased breath sounds at the bases. No wheeze. HEART: S1, S2. Regular rate and rhythm. ABDOMEN: Soft. No tenderness. LABS: Hemoglobin 9.3, white count 3.0, BUN of 21, creatinine 0.51. Sputum is pending. Blood culture so far negative. DIAGNOSTIC IMPRESSION AND PLAN: Patient with acute respiratory failure in this patient who did have a concern for possible aspiration pneumonia. Covered with Rocephin and Flagyl; to continue. Cultures are so far pending. Continue with supportive care. MMODL / IJN: [id number] /
[2021-04-26 02:15] LABS: Glucose,Whole Blood 121 mg/dL (75-99)
[2021-04-26] MEDS: metroNIDAZOLE-NS PMX 500 MG in SALINE 1 100ML.BAG IVPB SCH ×2 (03:58→11:20)
[2021-04-26] MEDS: MIDAZOLAM HCL 100 MG in SODIUM CHLORIDE 0.9% 80 ML IV SCH ×2 (04:00→11:20)
[2021-04-26 05:05] LABS: HCT 27.9 % (34.0-46.0); HGB 9.3 gm/dL (11.4-16.0); MCH 32.7 pg (25.0-35.0); MCHC 33.3 g/dL (31.0-37.0); MCV 98.1 fL (80.0-100.0); Macrocytosis Slight; Mean Platelet Volume 10.4; Platelet Count 217 k/uL (150-450); RBC 2.85 m/uL (3.80-5.40); RDW 15.5 % (11.5-15.5); WBC 4.6 k/uL (3.8-10.6)
[2021-04-26 05:14] LABS: African American GFR (CKD) >90 (>60 ml/min/1.73 sqM); Anion Gap 5 mmol/L; Blood Urea Nitrogen 17 mg/dL (7-17); Calcium 7.9 mg/dL (8.4-10.2); Carbon Dioxide 25 mmol/L (22-30); Chloride 110 mmol/L (98-107); Glucose 93 mg/dL (74-99); Non-African American GFR(CKD) >90 (>60 ml/min/1.73 sqM); Potassium 3.8 mmol/L (3.5-5.1); Sodium 140 mmol/L (137-145)
[2021-04-26] MEDS: POTASSIUM CHLORIDE 10 MEQ in WATER FOR INJECTION 1 100ML.BAG IVPB SCH ×2 (07:13→09:25)
--- NOTE | 2021-04-26 07:59 | XR ---
EXAMINATION TYPE: XR chest 1V portable DATE OF EXAM: 04/26/2021 COMPARISON: 04/25/2021 INDICATION: Tube placement TECHNIQUE: Single frontal view of the chest is obtained. FINDINGS: The heart size is normal. The pulmonary vasculature is normal. Small right pleural effusion may be present. There is a small left pleural effusion. Elevation of the right diaphragm is noted. Endotracheal tube tip is above the michael. Nasogastric tube transverses the thorax. IMPRESSION: 1. Small bilateral pleural effusions, stable. There is chronic elevation of the right diaphragm. Line s and catheters are stable.
[2021-04-26] MEDS: ALBUTEROL NEBULIZED 2.5 MG/3 ML INHALATION SCH ×2 (08:05→11:12)
[2021-04-26] MEDS: CHLORHEXIDINE GLUCONATE 15 ML CUP MUCOUS MEM SCH (09:25)
[2021-04-26] MEDS: LEVOTHYROXINE IVP 100 MCG/5 ML VIAL IV SCH (09:26)
[2021-04-26 09:49] VITALS: TEMP 99.7
[2021-04-26 11:28] VITALS: BP 95/51
--- NOTE | 2021-04-26 11:28 | P.PN ---
<Evelyn,Renee - Last Filed: 04/26/21 11:23> Subjective Progress Note Date: 04/26/21 CHIEF COMPLAINT: Shortness of breath HISTORY OF PRESENT ILLNESS: Patient remains in the ICU intubated and sedated. No further seizure activity reported. She remains on antibiotics for possible aspiration pneumonia. Patient's guardian had meeting this morning with the courts to discuss DO NOT RESUSCITATE and hospice order. Patient remains afebrile. WBC 4.6 PHYSICAL EXAM: VITAL SIGNS: Reviewed. GENERAL: Well-developed in no acute distress. Intubated and sedated. HEENT: No sclera icterus. Extraocular movements grossly intact. Moist buccal mucosa. Head is atraumatic, normocephalic. ABDOMEN: Soft. Nondistended. Nontender. NEUROLOGIC: Intubated and sedated. ASSESSMENT: 1. Aspiration pneumonia 2. Moderate protein calorie malnutrition 3. Developmental delay PLAN: -Legal guardian had meeting this morning with Court. Awaiting their decision regarding hospice measures and if they want further procedures to be completed. If desired can proceed with EGD with PEG tube placement. -Continue ICU management and supportive care. The impression and plan of care has been dictated as directed. Dr. Cloud I performed a history and examination of this patient, discussed the same with the dictator. I agree with the dictator's note ,documented as a scribe. Any additional findings or plans will be noted. Objective - Vital Signs Vital signs: Vital Signs Temp 99.7 F H 04/26/21 08:00 Pulse 67 04/26/21 11:12 Resp 14 04/26/21 09:00 BP 102/52 04/26/21 09:00 Pulse Ox 96 04/26/21 09:00 Intake & Output 04/25/21 04/26/21 04/26/21 18:59 06:59 18:59 Intake Total 607.100 870.900 388 Output Total 155 240 90 Balance 452.100 630.900 298 Weight 73.1 kg Intake: IV 390 290 210 0.9 240 240 60 Potassium Chloride 10 meq 100 In Water For Injection 1 100ml.bag @ 100 mls/hr IVPB Q1H [facility] Rx#: [id number] Valproate Sodium 750 mg 50 In Sodium Chloride 0.9% 50 ml @ 50 mls/hr IVPB Q12HR [facility] Rx#:[id number] cefTRIAXone 2 gm In 50 50 Sodium Chloride 0.9% 50 ml @ 100 mls/hr IVPB Q24HR [facility] Rx#:[id number] metroNIDAZOLE-NS PMX 500 100 mg In Saline 1 100ml.bag @ 100 mls/hr IVPB Q8H [facility] Rx#:[id number] Intake, IV Titration 27.100 190.900 88 Amount Midazolam HCl 100 mg In 27.100 190.900 88 Sodium Chloride 0.9% 80 ml @ 3 MG/HR 3 mls/hr IV .Q24H [facility] Rx#:[id number] Tube Feeding 160 330 90 Other 30 60 Output: Urine 155 240 90 Other: Voiding Method Indwelling Catheter Indwelling Catheter - Labs CBC & Chem 7: 04/26/21 04:13 04/26/21 04:13 Labs: Abnormal Lab Results - Last 24 Hours (Table) 04/25/21 04/25/21 04/26/21 Range/Units 12:10 12:31 02:14 RBC (3.80-5.40) m/uL Hgb (11.4-16.0) gm/dL Hct (34.0-46.0) % Chloride (98-107) mmol/L Creatinine (0.52-1.04) mg/dL POC Glucose (mg/dL) 62 L 148 H 121 H (75-99) mg/dL Calcium (8.4-10.2) mg/dL 04/26/21 04/26/21 Range/Units 04:13 04:13 RBC 2.85 L (3.80-5.40) m/uL Hgb 9.3 L (11.4-16.0) gm/dL Hct 27.9 L (34.0-46.0) % Chloride 110 H (98-107) mmol/L Creatinine 0.50 L (0.52-1.04) mg/dL POC Glucose (mg/dL) (75-99) mg/dL Calcium 7.9 L (8.4-10.2) mg/dL Microbiology - Last 24 Hours (Table) 04/24/21 03:23 Gram Stain - Final Sputum Sputum Culture - Final 04/22/21 17:19 Blood Culture - Preliminary Blood No Growth after 72 hours <Dixon Cloud - Last Filed: 04/26/21 13:32> Subjective As above. Apparently decision has been made to proceed with comfort care measures. We'll sign off. Please call if needed. Objective - Vital Signs Vital signs: Vital Signs Temp 99.7 F H 04/26/21 08:00 Pulse 54 L 04/26/21 12:00 Resp 19 04/26/21 11:00 BP 95/51 04/26/21 11:00 Pulse Ox 94 L 04/26/21 12:00 Intake & Output 04/25/21 04/26/21 04/26/21 18:59 06:59 18:59 Intake Total 607.100 870.900 551.408 Output Total 155 240 235 Balance 452.100 630.900 316.408 Weight 73.1 kg 74.6 kg Intake: IV 390 290 270 0.9 240 240 120 Potassium Chloride 10 meq 100 In Water For Injection 1 100ml.bag @ 100 mls/hr IVPB Q1H [facility] Rx#: [id number] Valproate Sodium 750 mg 50 In Sodium Chloride 0.9% 50 ml @ 50 mls/hr IVPB Q12HR [facility] Rx#:[id number] cefTRIAXone 2 gm In 50 50 Sodium Chloride 0.9% 50 ml @ 100 mls/hr IVPB Q24HR [facility] Rx#:[id number] metroNIDAZOLE-NS PMX 500 100 mg In Saline 1 100ml.bag @ 100 mls/hr IVPB Q8H [facility] Rx#:[id number] Intake, IV Titration 27.100 190.900 101.408 Amount Midazolam HCl 100 mg In 27.100 190.900 101 Sodium Chloride 0.9% 80 ml @ 3 MG/HR 3 mls/hr IV .Q24H [facility] Rx#:[id number] Morphine Sulfate (100 mg/ 0.408 2 ml) 100 mg In Sodium Chloride 0.9% 100 ml @ 1 MG/HR 1.02 mls/hr IV . Q24H [facility] Rx#:[id number] Tube Feeding 160 330 180 Other 30 60 Output: Urine 155 240 235 Other: Voiding Method Indwelling Catheter Indwelling Catheter Indwelling Catheter - Labs CBC & Chem 7: 04/26/21 04:13 04/26/21 04:13 Labs: Abnormal Lab Results - Last 24 Hours (Table) 04/26/21 04/26/21 04/26/21 Range/Units 02:14 04:13 04:13 RBC 2.85 L (3.80-5.40) m/uL Hgb 9.3 L (11.4-16.0) gm/dL Hct 27.9 L (34.0-46.0) % Chloride 110 H (98-107) mmol/L Creatinine 0.50 L (0.52-1.04) mg/dL POC Glucose (mg/dL) 121 H (75-99) mg/dL Calcium 7.9 L (8.4-10.2) mg/dL Microbiology - Last 24 Hours (Table) 04/24/21 03:23 Gram Stain - Final Sputum Sputum Culture - Final 04/22/21 17:19 Blood Culture - Preliminary Blood No Growth after 72 hours
[2021-04-26] MEDS ORDERED: SCOPOLAMINE 1.5MG/72HR PATCH TRANSDERM SCH (11:30)
[2021-04-26] MEDS ORDERED: MORPHINE SULFATE 2 MG/ML SYRINGE IV PRN (11:30)
[2021-04-26] MEDS ORDERED: ATROPINE OPHTH SOLN 1% 5ML BTL SUBLINGUAL PRN (11:30)
[2021-04-26] MEDS: VALPROATE SODIUM 750 MG in SODIUM CHLORIDE 0.9% 50 ML IVPB SCH (11:34)
[2021-04-26 11:43] LABS: Glucose,Whole Blood 96 mg/dL (75-99)
[2021-04-26] MEDS: MORPHINE SULFATE (100 MG/2 ML) 100 MG in SODIUM CHLORIDE 0.9% 100 ML IV SCH (12:23)
--- NOTE | 2021-04-26 13:18 | P.PN ---
Subjective Progress Note Date: 04/26/21 Principal diagnosis: Acute hypoxic respiratory failure secondary to seizures and aspiration pneumonia. 76-year-old to admission, with extensive mental retardation and developmental delay, sent over to us because of some increased shortness of breath. Patient is nonverbal. Unable to provide any history. She does moan. Nonresponsive to any verbal stimulation. Her baseline neurologic function is significantly impaired. The patient was noted to have increased drowsiness, diminished oral intake, failure to thrive, and some shortness of breath. Initially, her pulse ox was 97% on room air and later on she was found to desaturate and there was obvious that operative pulse ox and for that reason the patient was placed on 4 L about 2 by nasal cannula and her current pulse ox is 95%. No cough. No significant respiratory distress. No reported aspiration. Temperature is 98.6. The white cell count is 7.8. COVID-19 testing was negative. C-reactive protein was at 2.8. Troponin 2 is 0.05 and lactic acid level was at 1.9. Chest x-ray showed questionable atelectatic changes and left lung base. Follow- up chest x-ray was done today showing mild cardiomegaly and small left-sided pleural effusion/atelectasis. The pulmonary vessel which are with essentially prominent. Patient was placed on a combination of Rocephin and clindamycin suspected aspiration pneumonia. Note that the patient's proBNP level was at 483. TSH was normal. She has had no seizure activity. Otherwise no other additional history is available. The patient is seen today 04/23/2021 in follow-up in the intensive care unit. Early this morning the patient developed seizure activity and developed respiratory distress requiring intubation mechanical ventilatory support and transfer to the ICU. She is currently on the ventilator program to assist control mode at a respiratory rate of 18, tidal volume 400, FiO2 50% and a PEEP of 5. Morning blood gases revealed a P O2 of 348, pCO2 of 49 and a pH of 7.30 on 100% FiO2. She is sedated on propofol at 40 mcg/kg/m. 0.9 normal sinus at 1 0 MLS per hour. She has had suspected aspiration pneumonia. Chest x-ray does reveal pulmonary interstitial and airspace edema. Worse compared to yesterday. She is currently on ceftriaxone and Flagyl. Cultures reveal no growth. White count 5.2. Hemoglobin 10.1. Sodium 141. Potassium 3.4. Creatinine 0.61. AST 40, ALT 26. She remains on Keppra. No further seizure activity noted. Patient was reevaluated today on 04/24/2021, remains intubated and mechanically ventilated. Patient is on assist control rate of 14, volume is 350 FiO2 50% PEEP of 5. ABG showed a pO2 of 71 pH of 7.59 pCO2 of 31, since the ABG the ventilator settings were adjusted and her tidal volume was cut down to 350 and rate was cut down to 14. Patient remains on Versed at 12 mg per hour, remains on 0.9 normal saline at KVO. Chest x-ray is showing bibasilar infiltrates and possibly a left pleural effusion. Patient is supposed to have a lumbar puncture today as recommended by neurology on the case, hence I plan to keep her intubated and mechanically ventilated and it will be extremely difficult to perform a lumbar puncture in this patient if not sedated, patient is usually agitated, and would be very difficult to perform lumbar puncture off sedation off mechanical ventilation. In the meantime patient will need a PEG tube,. She had issues with aspiration for quite some time, and her legal guardian is addressing with reports further treatment plans and whether the patient will need to be going through this or maybe consider home hospice. CBC today showed WBC of 2.8 hemoglobin of 9.7. Potassium is low at 2.9 being corrected as per protocol. Bicarb is 26. Her pH will improve after improving her respiratory alkalosis On 04/25/2021 patient seen in follow-up in the intensive care unit, she remains intubated, sedated on Versed, currently at 10 mg per hour. She is on assist- control mode of ventilation with a rate of 14, tidal vital 350, FiO2 of 40% and PEEP of 5, this morning's blood gas shows pO2 120, pCO2 of 40, and pH is 7.47. Patient is sedated, but she opens eyes to tactile stimulation. Does not appear to be in any acute distress, hemodynamically stable, in sinus mechanism, sinus bradycardia with a rate of 47-50 BPM, today's chest x-ray has been reviewed showing small left pleural effusion, stable, mild cardiomegaly with bibasilar Infiltrates and atelectasis. No fever. No vasopressor support, antibiotic coverage includes Rocephin and Flagyl. No seizure activity overnight reported by nursing staff, neurology is following, patient is on Depakote 750 mg twice daily. EEG showing background slowing suggestive of moderate encephalopathy, rare epileptiform discharge no focal slowing or seizure on EEG. Today's labs have been reviewed, her white blood cell, 3.0, hemoglobin is 9.3, platelet count is 174, sodium is 142, potassium is 3.3 and this has been replaced per protocol, rechecking back at 4.2, chloride is 111, CO2 is 24, B1 is 21, creatinine 0.51. Blood and sputum cultures have shown no growth thus far. Patient has severe developmental delay at baseline, she has a legal guardian and there was an emergency hearing yesterday in regards to patient's CODE STATUS. Outcome of the meeting is not known at this time. However the nursing staff reports that there is a possibility of CODE STATUS changing tomorrow and patient possibly being transitioned to comfort care. For now supportive care continues Reevaluated today on 04/26/2021, patient remains in the intensive care unit, intubated and mechanically ventilated. She is on assist control rate of 14 tida l volume 350 FiO2 40% and PEEP of 5. Patient remains on Versed at 12 mg per hour, she is on IV fluid at KVO, enteral feeding via orogastric tube using vital AF rate of 40/m. Chest x-ray showing slight improvement in the right lower lobe but she continues to have a small left pleural effusion and atelectasis. Patient is generally weak, and the CODE STATUS has been changed today, patient is going to be transitioned to comfort care as per her legal guardian. Hence we will consult hospice, and proceed to comfort care measures on this patient. ABC today was reviewed is unremarkable. Electrolytes are normal renal profile is normal. Objective - Vital Signs Vital signs: Vital Signs Temp 99.7 F H 04/26/21 08:00 Pulse 54 L 04/26/21 12:00 Resp 19 04/26/21 11:00 BP 95/51 04/26/21 11:00 Pulse Ox 94 L 04/26/21 12:00 Intake & Output 04/25/21 04/26/21 04/26/21 18:59 06:59 18:59 Intake Total 607.100 870.900 551.408 Output Total 155 240 235 Balance 452.100 630.900 316.408 Weight 73.1 kg 74.6 kg Intake: IV 390 290 270 0.9 240 240 120 Potassium Chloride 10 meq 100 In Water For Injection 1 100ml.bag @ 100 mls/hr IVPB Q1H [facility] Rx#: [id number] Valproate Sodium 750 mg 50 In Sodium Chloride 0.9% 50 ml @ 50 mls/hr IVPB Q12HR [facility] Rx#:[id number] cefTRIAXone 2 gm In 50 50 Sodium Chloride 0.9% 50 ml @ 100 mls/hr IVPB Q24HR [facility] Rx#:[id number] metroNIDAZOLE-NS PMX 500 100 mg In Saline 1 100ml.bag @ 100 mls/hr IVPB Q8H [facility] Rx#:[id number] Intake, IV Titration 27.100 190.900 101.408 Amount Midazolam HCl 100 mg In 27.100 190.900 101 Sodium Chloride 0.9% 80 ml @ 3 MG/HR 3 mls/hr IV .Q24H [facility] Rx#:[id number] Morphine Sulfate (100 mg/ 0.408 2 ml) 100 mg In Sodium Chloride 0.9% 100 ml @ 1 MG/HR 1.02 mls/hr IV . Q24H [facility] Rx#:[id number] Tube Feeding 160 330 180 Other 30 60 Output: Urine 155 240 235 Other: Voiding Method Indwelling Catheter Indwelling Catheter Indwelling Catheter - Exam GENERAL EXAM: Revealed 76-year-old female intubated sedated, in no distress. On Versed drip. HEAD: Normocephalic. EYES: PERRLA, EOMI, nonicteric. NOSE: Clear with pink turbinates. THROAT: Moist mucous membranes, endotracheal tube and orogastric tube are intact. NECK: No masses, no JVD. CHEST: No chest wall deformity. LUNGS: Fine crackles at the bases no rhonchi and no wheezes. CVS: S1 and S2 normal with no audible murmur, regular rhythm. ABDOMEN: No hepatosplenomegaly, normal bowel sounds, no guarding or rigidity. SKIN: No rashes CENTRAL NERVOUS SYSTEM: Sedated. On propofol, could not fully assess. EXTREMITIES: No clubbing edema or cyanosis - Labs CBC & Chem 7: 04/26/21 04:13 04/26/21 04:13 Labs: Abnormal Lab Results - Last 24 Hours (Table) 04/26/21 04/26/21 04/26/21 Range/Units 02:14 04:13 04:13 RBC 2.85 L (3.80-5.40) m/uL Hgb 9.3 L (11.4-16.0) gm/dL Hct 27.9 L (34.0-46.0) % Chloride 110 H (98-107) mmol/L Creatinine 0.50 L (0.52-1.04) mg/dL POC Glucose (mg/dL) 121 H (75-99) mg/dL Calcium 7.9 L (8.4-10.2) mg/dL Microbiology - Last 24 Hours (Table) 04/24/21 03:23 Gram Stain - Final Sputum Sputum Culture - Final 04/22/21 17:19 Blood Culture - Preliminary Blood No Growth after 72 hours Assessment and Plan Assessment: Impression:1 Acute hypoxemic respiratory failure secondary to aspiration pn eumonia, currently on a combination of Rocephin and Flagyl. Required intubation mechanical ventilatory support on 04/23/2021, remains intubated and mechanically ventilated. 2 Seizure activity, currently on Keppra. ALLERGY consulted. Neurology is recommending a lumbar puncture. 3 Developmental delay/mentally challenged, severe 4 Hypothyroidism 5 Troponin leak, no acute ischemic EKG changes 6 Diminished oral intake, failure to thrive along with a very poor baseline performance and functional status is extremely poor secondary to above-mentioned comorbidities. Recommendation: Continue ventilatory support. Until the final decision is made regarding comfort care measures, my understanding that decision will be made today and the nurse will notify me, we will likely proceed with hospice and comfort care measures Overall prognosis is extremely poor and guarded, I believe the patient should proceed to comfort care measures, hospice will be consulted. Patient is critically ill, critical care time is over 30 minutes. Time with Patient: Greater than 30
[2021-04-26 14:07] VITALS: BMI 29.1
--- NOTE | 2021-04-26 19:41 | PN ---
PROGRESS NOTE CHIEF COMPLAINT: Respiratory failure. HISTORY OF PRESENT ILLNESS: This lady's condition is about the same. She is still on the ventilator. There is a court date today to determine her DNR status as well as possibility of placing a PEG tube whether or not she is a DNR. PHYSICAL EXAMINATION: Chest is clear on the ventilator. The cardiac exam is normal. Abdomen is soft. IMPRESSION: 1. Encephalopathy following seizure. 2. Mental debility. PLAN: Await court's decision. MMODL / IJN: [id number] /
[2021-04-27] MEDS: MORPHINE SULFATE (100 MG/2 ML) 100 MG in SODIUM CHLORIDE 0.9% 100 ML IV SCH ×2 (01:39→12:47)
[2021-04-27 02:07] VITALS: PULSE 43
[2021-04-27 11:28] VITALS: RESP 6
--- NOTE | 2021-04-27 18:27 | DS ---
DISCHARGE SUMMARY CHIEF COMPLAINT: Mental status changes. HISTORY OF PRESENT ILLNESS AND PHYSICAL EXAMINATION: Details of this lady's history and physical can be found in the initial workup. LABORATORY STUDIES: While she was in a hospital she had laboratory studies, details of which can be found in the laboratory section of her chart. COURSE IN THE HOSPITAL: After admission she was placed on bedrest and underwent a thorough neurologic and infectious Disease evaluation. It was thought that her mental status problems might have been related to pneumonia. She remained more lethargic than normal and was unable to swallow. It was to the point where consideration for PEG tube was being made when she had a grand mal seizure at night and respiratory arrest. This probably resulted in anoxic brain injury and she required intubation and ventilator support. She woke up somewhat and was able to trigger the ventilator, but could not maintain adequate tidal volume. Guardian was contacted and case was taken a court were it was determined that she would be placed on comfort measures only. She on the afternoon of the . FINAL DIAGNOSES: 1. Mental status changes. 2. Bronchial pneumonia. 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 4. Anoxic brain injury. 5. Developmental and mental debility. OPERATIONS: None. CONSULTATIONS: Pulmonology. She is not improved, she . MMODL / IJN: [id number] /
--- NOTE | 2021-04-30 16:15 | CDI ---
Documentation Clarification Form Date: 04/30/2021 03:26:15 PM From: Aurea Connolly RN, CCDS Phone: [email or web address] Admit Date: 04/17/2021 01:43:00 PM Patient Name: Mari Diallo Visit Number: [id number] Discharge Date: 04/27/2021 03:27:00 PM ATTENTION: The Clinical Documentation Specialists (CDI) and [facility] Coding Staff appreciate your assistance in clarifying documentation. Please respond to the clarification below the line at the bottom and electronically sign. The CDI & [facility] Coding staff will review the response and follow-up if needed. Please note: Queries are made part of the Legal Health Record. If you have any questions, please contact the author of this message via ITS. Dr. Patricio Muñoz Rule out Sepsis is documented in the 04/18 H&P. For each diagnosis, documentation must be clear to determine if the condition was present at the time of the patients inpatient admission or developed during the hospital stay or was ruled out. Additional clarification regarding Sepsis is requested. History/Risk Factors: 04/18 H&P: "76-year-old mentally debilitated female who [facility] a [place] and is wheelchair bound. She is mentally incapacitated as well as physically. She generally is able to move about, make unintelligible noises, eat, swallow and eliminate. The penitentiary took her to the emergency room at [facility] because she suddenly had become unresponsive. They treated her and released her. They called my office and we told them to bring her in and she was referred to the emergency room. There she was quite lethargic and minimally responsive. There may have been a question of pneumonitis, but clinically there is no significant sign of infection. Lactic acid was normal. She was unable to eat and swallow. She is admitted for further evaluation to look for the etiology of her deterioration." Clinical Indicators: 04/18 H&P: Physical examination: Blood pressure 92/68, pulse of 120, respirations 16. She is afebrile. In general she appeared to be much more lethargic than usual. She is pale and peripherally vasoconstricted. CHEST is clear. CARDIAC exam demonstrated tachycardia. IMPRESSION: Mental status changes. Rule out sepsis. Rule out other neurologic or cardiovascular disorder." 04/25 Pulmonary: "Altered mental status, related to Aspiration pneumonia, sepsis, and possible seizure activity " 04/17 Nursing Note; "Patient's rectal temp on arrival to unit was 92.3. Dr. Muñoz notified. Luther edmonds applied." 04/17 WBC 2.9, platelets 110, lactic acid 1.9, CRP 2.8, procalcitonin 0.09 04/17 Temp 97.0, 92.3, 94.5, HR 64, BP 179/100, pox 91 and 97 %, RR 18, 17, 7 Treatment: IV Levaquin x1 dose on 04/17. 0.9 NS @100/hr. IV Flagyl 500mg Q8H 04/23- 04/26. Intubation/ventilation Please clarify if Sepsis was present and treated this admission and was POA: [ ] Yes, Sepsis was present at the time of the order for inpatient admission. [ ] No, Sepsis was not present at the time of the order for inpatient admission. [ ] Sepsis ruled out [ ] Other, [ ] Unable to determine MTDD
--- NOTE | 2021-05-01 07:48 | CDI ---
Documentation Clarification Form Date: 05/01/21 From: Nidia Castellano Admit Date: 04/17/2021 01:43:00 PM Patient Name: Mari Diallo Visit Number: [id number] Discharge Date: 04/27/2021 03:27:00 PM ATTENTION: The Clinical Documentation Specialists (CDI) and [facility] Coding Staff appreciate your assistance in clarifying documentation. Please respond to the clarification below the line at the bottom and electronically sign. The CDI & [facility] Coding staff will review the response and follow-up if needed. Please note: Queries are made part of the Legal Health Record. If you have any questions, please contact the author of this message via ITS. Dr. Patricio Muñoz, There is documentation of pulmonary hypertension in the echo, 04/18, 04/24 & 04/25 neuro progress notes and 04/23 neuro consult. Additional clarification is requested. History/Risk Factors: severe intellectual disabilities, aspiration pneumonia, acute hypoxic respiratory failure, dementia, cerebral palsy, grand mal seizure Clinical Indicators: Echocardiogram revealed an EF of 5560 percent, LA severely dilated, moderate to severe mitral regurgitation, moderate pulmonary hypertension with RVSP of 47 mmHg. Treatment: monitored Please clarify the cause of pulmonary hypertension: [ ] Pulmonary hypertension is due to [ ] Pulmonary hypertension unknown cause [ ] Other explanation of clinical findings (please specify) [ ] Unable to determine (no explanation for clinical findings) MTDD
--- NOTE | 2021-05-01 08:08 | CDI ---
Documentation Clarification Form Date: 05/01/2021 07:53:00 AM From: Nidia Castellano Admit Date: 04/17/2021 01:43:00 PM Patient Name: Mari Diallo Visit Number: [id number] Discharge Date: 04/27/2021 03:27:00 PM ATTENTION: The Clinical Documentation Specialists (CDI) and [facility] Coding Staff appreciate your assistance in clarifying documentation. Please respond to the clarification below the line at the bottom and electronically sign. The CDI & [facility] Coding staff will review the response and follow-up if needed. Please note: Queries are made part of the Legal Health Record. If you have any questions, please contact the author of this message via ITS. Dr. Adalberto Hayward, Your patient has normal pressure hydrocephalus is documented in the brain scan, ED note your consult. Based on this information and the findings below, is there an additional diagnosis that is clinically appropriate for this patient? Patient history/risk factors: severe intellectual disabilities, aspiration pneumonia, acute hypoxic respiratory failure, dementia, cerebral palsy, grand mal seizure Clinical Indicators: Per CT of brain-Ventricles are prominent for the patient age. Some mild prominence of the temporal horns may be present. Consider normal pressure hydrocephalus. Treatment: CT scan Is there an additional diagnosis that is clinically appropriate for this patient? [ ] normal pressure hydrocephalus [ ] normal pressure hydrocephalus ruled out [ ] Other, please specify [ ] Unable to determine Unable to determine MTDD
--- NOTE | 2021-05-01 08:19 | CDI ---
Documentation Clarification Form Date: 05/01/21 From: Nidia Castellano Admit Date: 04/17/2021 01:43:00 PM Patient Name: Mari Diallo Visit Number: [id number] Discharge Date: 04/27/2021 03:27:00 PM ATTENTION: The Clinical Documentation Specialists (CDI) and [facility] Coding Staff appreciate your assistance in clarifying documentation. Please respond to the clarification below the line at the bottom and electronically sign. The CDI & [facility] Coding staff will review the response and follow-up if needed. Please note: Queries are made part of the Legal Health Record. If you have any questions, please contact the author of this message via ITS. Dr. Patricio Muñoz, Your patient has an abnormal lab value: magnesium 1.2-04/23 & potassium 5.3- /8, 5.5-11 & 2.9-/15. Please clarify if there is an additional diagnosis and/or clinical significance related to this value. History/Risk Factors: severe intellectual disabilities, aspiration pneumonia, acute hypoxic respiratory failure, dementia, cerebral palsy, grand mal seizure Clinical indicators: Magnesium 1.2-04/23 & Potassium 5.3- /8, 5.5-9/11 & 2.9- /15 Treatment: Magnesium Sulfate-D5w IV, Potassium Chloride Er then Potassium Chloride IV Is there an additional diagnosis and/or clinical significance related to the above lab result/information? [ ] Hypomagnesemia (1.2) (POA) [ ] Hyperkalemia (5.3 & 5.5) (Not POA) [ ] Hypokalemia (2.9) (Not POA) [ ] Other, please specify [ ] Unable to determine MTDD
--- NOTE | 2021-05-01 18:31 | MISC ---
MISCELLANOUS REPORT No sepsis not present at the time of admission. MMODL / IJN: [id number] /
--- NOTE | 2021-05-01 18:36 | MISC ---
MISCELLANOUS REPORT Unable to determine. MMODL / IJN: [id number] /
--- NOTE | 2021-05-01 18:36 | MISC ---
MISCELLANOUS REPORT Unable to determine that is on the magnesium. MMODL / IJN: [id number] /
== END 2021-04-27 15:27 | disposition expired | DRG 208 ==
LOC: EC 10:19 → 3SCARD 13:43 → 2SICU 04-23 03:00 → 4SSUR 04-27 12:53
PROVIDERS: ADMIT Family Medicine; ATTEND Family Medicine
PROC: 5A1945Z Respiratory Ventilation, 24-96 Consecutive Hours (ICD-10-PCS; principal; 2021-04-23)
PROC: 0D9670Z Drainage of Stomach with Drainage Device, Via Natural or Artificial Opening (ICD-10-PCS; principal; 2021-04-23)
PROC: 0BH17EZ Insertion of Endotracheal Airway into Trachea, Via Natural or Artificial Opening (ICD-10-PCS; 2021-04-23)
PROC: 3E0G76Z Introduction of Nutritional Substance into Upper GI, Via Natural or Artificial Opening (ICD-10-PCS; 2021-04-25)
DX: J69.0 Pneumonitis due to inhalation of food and vomit (principal); J96.01 Acute respiratory failure with hypoxia; A41.9 Sepsis, unspecified organism; G93.1 Anoxic brain damage, not elsewhere classified; E44.0 Moderate protein-calorie malnutrition; J90 Pleural effusion, not elsewhere classified; F72 Severe intellectual disabilities; E87.3 Alkalosis; G40.409 Other generalized epilepsy and epileptic syndromes, not intractable, without status epilepticus; R13.0 Aphagia; I27.20 Pulmonary hypertension, unspecified; F03.90 Unspecified dementia, unspecified severity, without behavioral disturbance, psychotic disturbance, mood disturbance, and anxiety; G80.9 Cerebral palsy, unspecified; F31.9 Bipolar disorder, unspecified; Z51.5 Encounter for palliative care; Z66 Do not resuscitate; Z20.822 Contact with and (suspected) exposure to COVID-19; R62.7 Adult failure to thrive; J18.0 Bronchopneumonia, unspecified organism; E03.9 Hypothyroidism, unspecified; R00.1 Bradycardia, unspecified; I08.1 Rheumatic disorders of both mitral and tricuspid valves; R13.10 Dysphagia, unspecified; I45.10 Unspecified right bundle-branch block; F81.9 Developmental disorder of scholastic skills, unspecified; R77.8 Other specified abnormalities of plasma proteins; Z68.29 Body mass index [BMI] 29.0-29.9, adult; Z79.890 Hormone replacement therapy; Z79.899 Other long term (current) drug therapy; Z99.3 Dependence on wheelchair; Z87.891 Personal history of nicotine dependence; Z88.0 Allergy status to penicillin; Z88.8 Allergy status to other drugs, medicaments and biological substances
CPT/HCPCS: 36415; 36600; 70450; 71045; 80048; 80053; 80164; 80306; 81001; 82272; 82805; 83605; 83735; 83880; 84132; 84145; 84439; 84443; 84481; 84484; 85025; 85027; 85610; 85730; 86140; 87040; 87070; 87205; 87635; 93005; 93306; 94002; 94003; 94640; 94760; 95816; 95822; 99285